=== PATIENT | female | born 1955 | race Caucasian/White ===

== ENCOUNTER 2017-02-24 13:17 | Inpatient (IN) | payer MEDICARE, MEDICAID ==
[~2017-02-24] VITALS: Ht 177.8 cm; Wt 66.5 kg
[~2017-02-24 13:17] MED LIST: ARIP2 PO; CA C1TAB73 PO; CITA20TA9 PO; DOCU250C91 PO; LUBI24CA2 PO
[2017-02-24] MEDS ORDERED: HALOPERIDOL 5 MG TABLET PO PRN (14:00)
[2017-02-24] MEDS ORDERED: ZOLPIDEM TARTRATE 10 MG TABLET PO PRN (14:00)
[2017-02-24] MEDS ORDERED: LORazepam 2 MG TABLET PO PRN (14:00)
[2017-02-24 14:13] VITALS: BP 124/63
[2017-02-24] MEDS ORDERED: PNEUMOCOCCAL VACCINE POLYVALENT 0.5 ML VIAL [PPSV23] IM ONE (14:45)
[2017-02-24 16:12] VITALS: BP 113/60
[2017-02-24] MEDS ORDERED: DOCUSATE SODIUM 250 MG CAPSULE PO PRN (16:45)
[2017-02-24 18:00] VITALS: BP 110/78
[2017-02-24 19:00] VITALS: BP 107/74
[2017-02-24 20:02] VITALS: BP 114/72
[2017-02-24 20:16] VITALS: BP 113/66
[2017-02-24] MEDS: LORazepam 2 MG TABLET PO SCH (21:15)
[2017-02-24] MEDS: MIRTAZAPINE 15 MG TABLET PO SCH (21:38)
[2017-02-24] MEDS: LUBIPROSTONE 24 MCG CAPSULE PO SCH (21:38)
[2017-02-25 02:05] VITALS: BP 105/64
[2017-02-25 06:01] VITALS: BP 111/67
[2017-02-25 07:54] LABS: BASOPHILS # (AUTO) 0.02 K/uL (0.00-0.20); BASOPHILS % (AUTO) 0.3 % (0.0-2.0); EOSINOPHILS # (AUTO) 0.22 K/uL (0.00-0.70); EOSINOPHILS % (AUTO) 3.21 % (1.0-6.0); HEMATOCRIT 39.6 % (36-46); HEMOGLOBIN 13.1 g/dL (12.0-16.0); LYMPHOCYTES % (AUTO) 28.4 % (22.0-44.0); MEAN CORPUSCULAR HEMOGLOBIN 31.2 pg (26.0-34.0); MEAN CORPUSCULAR HGB CONC 33.2 G/dL (31.0-37.0); MEAN CORPUSCULAR VOLUME 94 fL (80-100); MONOCYTES # (AUTO) 0.6 K/uL (0.1-1.0); MONOCYTES % (AUTO) 8.5 % (2.0-9.0); NEUTROPHILS # (AUTO) 4.2 K/uL (1.8-7.7); NEUTROPHILS % (AUTO) 59.6 % (40.0-70.0); PLATELET COUNT (AUTO) 244 K/uL (150-450); RED BLOOD CELL COUNT(AUTO) 4.21 MIL/uL (4.00-5.20); RED CELL DISTRIBUTION WIDTH 13.8 % (11.5-14.5)
[2017-02-25 08:07] LABS: ALANINE AMINOTRANSFERASE 17 U/L (12-78); ALBUMIN 3.2 g/dL (3.4-5.0); ANION GAP 8 mmol/L (8-16); ASPARTATE AMINOTRANSFERASE 12 U/L (15-37); BILIRUBIN,TOTAL 0.4 mg/dL (0.1-1.0); CALCIUM, TOTAL 8.4 mg/dL (8.8-10.5); CARBON DIOXIDE 27 mmol/L (22-29); CHLORIDE 108 mmol/L (98-107); CREATININE 0.84 mg/dL (0.60-1.30); GLOMERULAR FILTR. RATE CALC > 60 mL/min (>60); POTASSIUM 3.9 mmol/L (3.5-5.1); SODIUM SERUM 143 mmol/L (136-145); TOTAL PROTEIN, SERUM 5.9 g/dL (6.4-8.2); UREA NITROGEN, BLOOD 13 mg/dL (7-18)
[2017-02-25 08:09] VITALS: BP 122/56
[2017-02-25 08:28] LABS: APPEARANCE,URINE CLOUDY (CLEAR); GLUCOSE, URINE (UA) NEGATIVE (NEGATIVE); KETONES,URINE NEGATIVE (NEGATIVE); LEUKOCYTE ESTERASE ,URINE TRACE (NEGATIVE); OCCULT BLOOD,URINE NEGATIVE (NEGATIVE); PROTEIN,URINE NEGATIVE (NEGATIVE)
[2017-02-25 08:29] LABS: ADD UA MICROSCOPIC YES
[2017-02-25 08:33] LABS: AMORPHOUS SEDIMENT,UR Many /LPF (None Seen); CALCIUM OXALATE CRYSTALS,UR Moderate /LPF (None Seen); RBC,URINE 0-2 /HPF (0-2); SQUAMOUS EPITHELIAL CELL,UR Moderate /LPF (None Seen)
[2017-02-25] MEDS: CHOLECALCIFEROL (VIT D3) 1,000 UNITS TABLET PO SCH (08:35)
[2017-02-25] MEDS: LUBIPROSTONE 24 MCG CAPSULE PO SCH ×2 (08:35→16:57)
[2017-02-25] MEDS: LORazepam 2 MG TABLET PO SCH ×3 (08:35→16:57)
[2017-02-25] MEDS: NICOTINE 21 MG/24 HOUR PATCH TD SCH (08:36)
[2017-02-25 12:30] VITALS: BP 123/76
[2017-02-25 16:12] VITALS: BP 132/85
[2017-02-25 20:30] VITALS: BP 117/84
[2017-02-25] MEDS ORDERED: ACETAMINOPHEN 325 MG TABLET PO PRN (20:45)
[2017-02-25] MEDS ORDERED: IBUPROFEN 400 MG TABLET PO PRN (20:45)
[2017-02-25] MEDS: MIRTAZAPINE 15 MG TABLET PO SCH (20:46)
[2017-02-25] MEDS: MAGNESIUM HYDROXIDE SUSPENSION 30 ML UDCUP PO PRN (22:49)
[2017-02-26 05:37] VITALS: BP 125/82
[2017-02-26] MEDS: LUBIPROSTONE 24 MCG CAPSULE PO SCH ×2 (06:48→16:36)
[2017-02-26] MEDS: MAGNESIUM HYDROXIDE SUSPENSION 30 ML UDCUP PO PRN ×2 (06:57→20:53)
[2017-02-26 08:16] VITALS: BP 110/62
[2017-02-26] MEDS: CHOLECALCIFEROL (VIT D3) 1,000 UNITS TABLET PO SCH (08:36)
[2017-02-26] MEDS: LORazepam 2 MG TABLET PO SCH ×2 (08:36→16:36)
[2017-02-26] MEDS: NICOTINE 21 MG/24 HOUR PATCH TD SCH (08:37)
[2017-02-26] MEDS ORDERED: LORazepam 2 MG TABLET PO SCH (09:00)
[2017-02-26 09:08] LABS: HEMOGLOBIN A1C 5.7 % (4.5-6.2)
[2017-02-26 09:45] LABS: THYROID STIMULATING HORMONE 1.54 uIU/mL (0.36-3.74)
[2017-02-26 10:23] LABS: CHOL/HDL RATIO 2.8 (3.9-5.7)
[2017-02-26 16:09] VITALS: BP 128/71
[2017-02-26] MEDS: MIRTAZAPINE 15 MG TABLET PO SCH (20:36)
[2017-02-27 01:30] VITALS: BP 119/79
[2017-02-27] MEDS: LUBIPROSTONE 24 MCG CAPSULE PO SCH ×2 (07:16→16:40)
[2017-02-27 08:33] VITALS: BP 106/58
[2017-02-27] MEDS ORDERED: LORazepam 2 MG TABLET PO SCH ×2 (09:00)
[2017-02-27] MEDS: CHOLECALCIFEROL (VIT D3) 1,000 UNITS TABLET PO SCH (09:01)
[2017-02-27] MEDS: NICOTINE 21 MG/24 HOUR PATCH TD SCH (09:02)
[2017-02-27 16:37] VITALS: BP 104/63
[2017-02-27] MEDS: MIRTAZAPINE 15 MG TABLET PO SCH (20:35)
[2017-02-28 02:49] VITALS: BP 113/83
[2017-02-28] MEDS: LUBIPROSTONE 24 MCG CAPSULE PO SCH ×2 (07:20→16:34)
[2017-02-28 08:09] VITALS: BP 116/71
[2017-02-28] MEDS: NICOTINE 21 MG/24 HOUR PATCH TD SCH (09:56)
[2017-02-28] MEDS: CHOLECALCIFEROL (VIT D3) 1,000 UNITS TABLET PO SCH (09:56)
[2017-02-28] MEDS: MAGNESIUM HYDROXIDE SUSPENSION 30 ML UDCUP PO PRN (14:48)
[2017-02-28 16:09] VITALS: BP 118/73
[2017-02-28] MEDS: MIRTAZAPINE 15 MG TABLET PO SCH (20:33)
[2017-03-01 05:56] VITALS: BP 100/66
[2017-03-01] MEDS: LUBIPROSTONE 24 MCG CAPSULE PO SCH ×2 (06:32→16:33)
[2017-03-01 08:14] VITALS: BP 121/73
[2017-03-01] MEDS: NICOTINE 21 MG/24 HOUR PATCH TD SCH (08:46)
[2017-03-01] MEDS: CHOLECALCIFEROL (VIT D3) 1,000 UNITS TABLET PO SCH (08:46)
[2017-03-01 16:30] VITALS: BP 109/77
[2017-03-01] MEDS: MIRTAZAPINE 15 MG TABLET PO SCH (20:38)
[2017-03-02 04:55] VITALS: BP 117/71
[2017-03-02] MEDS: LUBIPROSTONE 24 MCG CAPSULE PO SCH ×2 (06:36→16:41)
[2017-03-02] MEDS: CHOLECALCIFEROL (VIT D3) 1,000 UNITS TABLET PO SCH (08:15)
[2017-03-02] MEDS: ARIPiprazole 5 MG TABLET PO SCH (08:15)
[2017-03-02] MEDS: NICOTINE 21 MG/24 HOUR PATCH TD SCH (08:15)
[2017-03-02 09:44] VITALS: BP 101/61
[2017-03-02] MEDS ORDERED: ARIP5TAB9 PO (14:51)
[2017-03-02] MEDS ORDERED: MIRT30 PO (14:51)
[2017-03-02 16:17] VITALS: BP 115/71
[2017-03-02] MEDS: MIRTAZAPINE 15 MG TABLET PO SCH (20:41)
[2017-03-02] MEDS: MAGNESIUM HYDROXIDE SUSPENSION 30 ML UDCUP PO PRN (20:52)
[2017-03-03 00:10] VITALS: BP 103/60
[2017-03-03] MEDS: LUBIPROSTONE 24 MCG CAPSULE PO SCH (06:40)
[2017-03-03] MEDS: CHOLECALCIFEROL (VIT D3) 1,000 UNITS TABLET PO SCH (08:03)
[2017-03-03] MEDS: ARIPiprazole 5 MG TABLET PO SCH (08:03)
[2017-03-03] MEDS: NICOTINE 21 MG/24 HOUR PATCH TD SCH (08:04)
[2017-03-03 08:31] VITALS: BP 109/70
[2017-03-03] MEDS ORDERED: MAGNESIUM CITRATE 300 ML ORAL SOLUTION PO PRN (10:00)
[2017-03-04 13:08] LABS: HEPATITIS Bs ANTIGEN SCREEN P Negative (Negative); HEPATITIS C AB SCREEN 0.2 s/co ratio (0.0-0.9)
[2017-03-21] MEDS ORDERED: ARIP10TA14 PO (09:52)
== END 2017-03-03 12:35 | disposition home or self-care (01) | DRG 885 ==
LOC: B2X 13:56 → EDSTATUS 14:13
PROVIDERS: ADMIT Psychiatry & Neurology Psychiatry; ATTEND Psychiatry & Neurology Psychiatry
PROC: HZ89ZZZ Medication Management for Substance Abuse Treatment, Other Replacement Medication (ICD-10-PCS; principal; 2017-02-24)
DX: F33.2 Major depressive disorder, recurrent severe without psychotic features (principal); R45.851 Suicidal ideations; F15.20 Other stimulant dependence, uncomplicated; F10.20 Alcohol dependence, uncomplicated; I10 Essential (primary) hypertension; D64.9 Anemia, unspecified; F17.200 Nicotine dependence, unspecified, uncomplicated; K59.00 Constipation, unspecified; F19.10 Other psychoactive substance abuse, uncomplicated; E88.09 Other disorders of plasma-protein metabolism, not elsewhere classified; Z53.29 Procedure and treatment not carried out because of patient's decision for other reasons; E55.9 Vitamin D deficiency, unspecified; F60.3 Borderline personality disorder; R45.87 Impulsiveness; F12.90 Cannabis use, unspecified, uncomplicated; Z28.21 Immunization not carried out because of patient refusal; Z59.0 Homelessness; Z79.899 Other long term (current) drug therapy; Z71.51 Drug abuse counseling and surveillance of drug abuser; Z91.5 Personal history of self-harm
CPT/HCPCS: 80074; 83036; 84443; 87086; 90471

== ENCOUNTER 2018-08-31 20:25 | Inpatient (IN) | payer MEDICARE, MEDICAID ==
[~2018-08-31] VITALS: Ht 177.8 cm; Wt 62.5 kg
[~2018-08-31 20:25] MED LIST changes: +ARIP10TA8 PO; -ARIP2 PO; -CA C1TAB73 PO; -CITA20TA9 PO; -LUBI24CA2 PO; +SERT50TA12 PO
[2018-08-31 20:43] VITALS: BP 113/72
[2018-08-31] MEDS ORDERED: HALOPERIDOL 5 MG TABLET PO PRN (20:45)
[2018-08-31] MEDS ORDERED: ZOLPIDEM TARTRATE 10 MG TABLET PO PRN (20:45)
[2018-08-31] MEDS ORDERED: PNEUMOCOCCAL VACCINE POLYVALENT 0.5 ML VIAL [PPSV23] IM ONE (21:30)
[2018-08-31] MEDS ORDERED: -PHARMACY VACCINE NOTE- MISC ONE (21:30)
[2018-08-31] MEDS ORDERED: DOCUSATE SODIUM 100 MG CAPSULE PO PRN (21:45)
[2018-08-31] MEDS ORDERED: MAG HYDROX/AL HYDROX/SIMETH ES 30 ML SUSPENSION UDCUP PO PRN (21:45)
[2018-08-31] MEDS ORDERED: PETROLATUM,WHITE 71 GM JELLY TP PRN (21:45)
[2018-08-31] MEDS ORDERED: IBUPROFEN 400 MG TABLET PO PRN (21:45)
[2018-08-31] MEDS ORDERED: LOPERAMIDE HCL 2 MG CAPSULE PO PRN (21:45)
[2018-08-31] MEDS ORDERED: ACETAMINOPHEN 325 MG TABLET PO PRN (21:45)
[2018-08-31] MEDS ORDERED: NICOTINE 14 MG/24 HOUR PATCH TD PRN (21:45)
[2018-08-31] MEDS ORDERED: CloNIDine HCL 0.1 MG TABLET PO PRN (21:45)
[2018-08-31] MEDS ORDERED: GuaiFENesin/D-METHORPHAN [SUGAR-FREE] 200-20MG/10 ML SYRUP UDCUP PO PRN (21:45)
[2018-08-31] MEDS ORDERED: ALBUTEROL SULFATE HFA 90 MCG/PUFF 8 GM INHALER IH PRN (21:45)
[2018-08-31] MEDS ORDERED: ONDANSETRON HCL 4 MG TABLET PO PRN (21:45)
[2018-09-01 06:22] VITALS: BP 118/78
[2018-09-01 08:33] VITALS: BP 100/66
[2018-09-01 08:49] LABS: BASOPHILS % (AUTO) 0.7 % (0.0-2.0); EOSINOPHILS % (AUTO) 4.6 % (1.0-6.0); HEMATOCRIT 37.9 % (36-46); HEMOGLOBIN 12.9 g/dL (12.0-16.0); LYMPHOCYTES # (AUTO) 1.2 K/uL (1.0-4.8); LYMPHOCYTES % (AUTO) 32.5 % (22.0-44.0); MEAN CORPUSCULAR HGB CONC 34.2 G/dL (31.0-37.0); MEAN CORPUSCULAR VOLUME 94 fL (80-100); MONOCYTES # (AUTO) 0.3 K/uL (0.1-1.0); MONOCYTES % (AUTO) 9.2 % (2.0-9.0); NEUTROPHILS # (AUTO) 1.9 K/uL (1.8-7.7); PLATELET COUNT (AUTO) 250 K/uL (150-450); RED BLOOD CELL COUNT(AUTO) 4.04 MIL/uL (4.00-5.20); RED CELL DISTRIBUTION WIDTH 13.9 % (11.5-14.5)
[2018-09-01 08:54] LABS: HEMOGLOBIN A1C 5.2 % (4.5-6.2)
[2018-09-01 09:14] LABS: ALANINE AMINOTRANSFERASE 20 U/L (12-78); ALBUMIN 3.2 g/dL (3.4-5.0); ALKALINE PHOSPHATASE 68 U/L (46-116); ANION GAP 5 mmol/L (8-16); ASPARTATE AMINOTRANSFERASE 18 U/L (15-37); BILIRUBIN,TOTAL 0.2 mg/dL (0.1-1.0); CALCIUM, TOTAL 8.5 mg/dL (8.8-10.5); CARBON DIOXIDE 29 mmol/L (22-29); CHLORIDE 108 mmol/L (98-107); CHOL/HDL RATIO 2.3 (3.9-5.7); CHOLESTEROL 130 mg/dL (131-200); CREATININE 0.94 mg/dL (0.60-1.30); FREE T4 (FREE THYROXINE) 0.87 ng/dL (0.76-1.46); GLOMERULAR FILTR. RATE CALC > 60 mL/min (>60); GLUCOSE,RANDOM 79 mg/dL (70-110); HDL CHOLESTEROL 56 mg/dL (40-60); LDL CHOL (CALC.) 65 mg/dL (0-130); POTASSIUM 4.7 mmol/L (3.5-5.1); SODIUM SERUM 142 mmol/L (136-145); THYROID STIMULATING HORMONE 0.78 uIU/mL (0.36-3.74); TOTAL PROTEIN, SERUM 6.2 g/dL (6.4-8.2); TRIGLYCERIDES 45 mg/dL (15-150); UREA NITROGEN, BLOOD 11 mg/dL (7-18)
[2018-09-01 09:15] VITALS: BP 114/69
[2018-09-01] MEDS: LORazepam 2 MG TABLET PO PRN (09:17)
[2018-09-01] MEDS: ARIPiprazole 10 MG TABLET PO SCH (12:00)
[2018-09-01] MEDS: SERTRALINE HCL 50 MG TABLET PO SCH (12:00)
[2018-09-01 16:50] VITALS: BP 129/79
[2018-09-02 03:18] VITALS: BP 124/82
[2018-09-02] MEDS: SERTRALINE HCL 50 MG TABLET PO SCH ×2 (08:57→10:46)
[2018-09-02] MEDS: ARIPiprazole 10 MG TABLET PO SCH ×2 (08:57→10:46)
[2018-09-02] MEDS: LORazepam 2 MG TABLET PO PRN ×2 (11:36→22:08)
[2018-09-02 22:12] VITALS: BP 111/87
[2018-09-03 00:47] VITALS: BP 110/68
[2018-09-03] MEDS: SERTRALINE HCL 50 MG TABLET PO SCH (08:35)
[2018-09-03] MEDS: ARIPiprazole 10 MG TABLET PO SCH (08:35)
[2018-09-03 09:25] VITALS: BP 117/77
[2018-09-03] MEDS: LORazepam 2 MG TABLET PO PRN ×2 (09:25→22:11)
[2018-09-03 16:06] VITALS: BP 108/63
[2018-09-04 00:54] VITALS: BP 110/72
[2018-09-04] MEDS: MAGNESIUM HYDROXIDE SUSPENSION 30 ML UDCUP PO PRN (05:48)
[2018-09-04 08:07] VITALS: BP 115/77
[2018-09-04] MEDS: SERTRALINE HCL 50 MG TABLET PO SCH (08:21)
[2018-09-04] MEDS: ARIPiprazole 10 MG TABLET PO SCH (08:21)
[2018-09-04] MEDS: LORazepam 2 MG TABLET PO PRN (08:27)
[2018-09-05] MEDS: LORazepam 2 MG TABLET PO PRN ×2 (00:43→08:29)
[2018-09-05 00:44] VITALS: BP 110/72
[2018-09-05 08:17] VITALS: BP 112/70
[2018-09-05] MEDS: SERTRALINE HCL 50 MG TABLET PO SCH (08:18)
[2018-09-05] MEDS: ARIPiprazole 10 MG TABLET PO SCH (08:18)
[2018-09-05 16:04] VITALS: BP 108/80
[2018-09-06] MEDS: MAGNESIUM HYDROXIDE SUSPENSION 30 ML UDCUP PO PRN (02:55)
[2018-09-06 08:10] VITALS: BP 122/77
[2018-09-06] MEDS: SERTRALINE HCL 100 MG TABLET PO SCH (08:30)
[2018-09-06] MEDS: ARIPiprazole 10 MG TABLET PO SCH (08:30)
[2018-09-07 02:46] VITALS: BP 113/74
[2018-09-07] MEDS: LORazepam 2 MG TABLET PO PRN ×2 (02:51→12:15)
[2018-09-07] MEDS: SERTRALINE HCL 100 MG TABLET PO SCH (08:27)
[2018-09-07] MEDS: ARIPiprazole 10 MG TABLET PO SCH (08:27)
[2018-09-07 08:30] VITALS: BP 115/71
[2018-09-07] MEDS: MAGNESIUM HYDROXIDE SUSPENSION 30 ML UDCUP PO PRN ×2 (09:15→23:53)
[2018-09-07 16:45] VITALS: BP 129/84
[2018-09-08 00:45] VITALS: BP 118/78
[2018-09-08] MEDS: LORazepam 2 MG TABLET PO PRN ×2 (04:11→15:41)
[2018-09-08 08:11] VITALS: BP 104/69
[2018-09-08] MEDS: ARIPiprazole 10 MG TABLET PO SCH (08:37)
[2018-09-08] MEDS: SERTRALINE HCL 100 MG TABLET PO SCH (08:37)
[2018-09-08 16:23] VITALS: BP 114/72
[2018-09-09 00:20] VITALS: BP 113/78
[2018-09-09] MEDS: MAGNESIUM HYDROXIDE SUSPENSION 30 ML UDCUP PO PRN (00:21)
[2018-09-09] MEDS: LORazepam 2 MG TABLET PO PRN ×2 (00:21→05:33)
[2018-09-09] MEDS: ARIPiprazole 10 MG TABLET PO SCH (08:03)
[2018-09-09] MEDS: SERTRALINE HCL 100 MG TABLET PO SCH (08:03)
[2018-09-09 08:17] VITALS: BP 121/75
[2018-09-09] MEDS ORDERED: SERT100T12 PO (11:55)
== END 2018-09-09 15:05 | disposition home or self-care (01) | DRG 885 ==
LOC: B2X 20:39
PROVIDERS: ADMIT Psychiatry & Neurology Psychiatry; ATTEND Psychiatry & Neurology Psychiatry
DX: F25.1 Schizoaffective disorder, depressive type (principal); R45.851 Suicidal ideations; I10 Essential (primary) hypertension; D64.9 Anemia, unspecified; F19.10 Other psychoactive substance abuse, uncomplicated; E55.9 Vitamin D deficiency, unspecified; K59.00 Constipation, unspecified; R45.87 Impulsiveness; K64.9 Unspecified hemorrhoids; D72.819 Decreased white blood cell count, unspecified; F41.9 Anxiety disorder, unspecified; Z79.82 Long term (current) use of aspirin; Z79.899 Other long term (current) drug therapy; Z91.5 Personal history of self-harm; Z71.51 Drug abuse counseling and surveillance of drug abuser; Z59.0 Homelessness
CPT/HCPCS: 83036; 84439; 84443; 86361

== ENCOUNTER 2018-10-19 11:02 | Inpatient (IN) | payer MEDICARE, MEDICAID ==
[~2018-10-19] VITALS: Ht 172.7 cm; Wt 62.1 kg
[~2018-10-19 11:02] MED LIST changes: -DOCU250C91 PO; +SERT100T12 PO; -SERT50TA12 PO
[2018-10-19] MEDS ORDERED: ZOLPIDEM TARTRATE 10 MG TABLET PO PRN (12:30)
[2018-10-19] MEDS ORDERED: HALOPERIDOL 5 MG TABLET PO PRN (12:30)
[2018-10-19] MEDS ORDERED: HALOPERIDOL LACTATE 5 MG/ML VIAL ONE (17:24)
[2018-10-19] MEDS ORDERED: DiphenhydrAMINE HCL 50 MG/ML VIAL ONE (17:24)
[2018-10-19] MEDS ORDERED: LORazepam 2 MG/ML VIAL ONE (17:24)
[2018-10-19] MEDS ORDERED: DiphenhydrAMINE HCL 50 MG/ML VIAL IM ONE (17:30)
[2018-10-19] MEDS ORDERED: HALOPERIDOL LACTATE 5 MG/ML VIAL IM ONE (17:30)
[2018-10-19] MEDS ORDERED: LORazepam 2 MG/ML VIAL IM ONE (17:30)
[2018-10-19] MEDS ORDERED: IBUPROFEN 400 MG TABLET PO PRN (20:15)
[2018-10-19] MEDS ORDERED: LOPERAMIDE HCL 2 MG CAPSULE PO PRN (20:15)
[2018-10-19] MEDS ORDERED: MAG HYDROX/AL HYDROX/SIMETH ES 30 ML SUSPENSION UDCUP PO PRN (20:15)
[2018-10-19] MEDS ORDERED: ONDANSETRON HCL 4 MG TABLET PO PRN (20:15)
[2018-10-19] MEDS ORDERED: CloNIDine HCL 0.1 MG TABLET PO PRN (20:15)
[2018-10-19] MEDS ORDERED: GuaiFENesin/D-METHORPHAN [SUGAR-FREE] 200-20MG/10 ML SYRUP UDCUP PO PRN (20:15)
[2018-10-19] MEDS ORDERED: PETROLATUM,WHITE 71 GM JELLY TP PRN (20:15)
[2018-10-19] MEDS ORDERED: NICOTINE 14 MG/24 HOUR PATCH TD PRN (20:15)
[2018-10-19] MEDS ORDERED: ALBUTEROL SULFATE HFA 90 MCG/PUFF 8 GM INHALER IH PRN (20:15)
[2018-10-19] MEDS ORDERED: ACETAMINOPHEN 325 MG TABLET PO PRN (20:15)
[2018-10-20 06:24] LABS: BASOPHILS % (AUTO) 0.8 % (0.0-2.0); EOSINOPHILS % (AUTO) 1.8 % (1.0-6.0); HEMATOCRIT 37.5 % (36-46); HEMOGLOBIN 12.5 g/dL (12.0-16.0); LYMPHOCYTES # (AUTO) 0.9 K/uL (1.0-4.8); LYMPHOCYTES % (AUTO) 28.8 % (22.0-44.0); MEAN CORPUSCULAR HGB CONC 33.2 G/dL (31.0-37.0); MEAN CORPUSCULAR VOLUME 90 fL (80-100); MONOCYTES # (AUTO) 0.4 K/uL (0.1-1.0); MONOCYTES % (AUTO) 11.9 % (2.0-9.0); NEUTROPHILS # (AUTO) 1.9 K/uL (1.8-7.7); NEUTROPHILS % (AUTO) 56.7 % (40.0-70.0); PLATELET COUNT (AUTO) 275 K/uL (150-450); RED BLOOD CELL COUNT(AUTO) 4.15 MIL/uL (4.00-5.20); RED CELL DISTRIBUTION WIDTH 13.4 % (11.5-14.5)
[2018-10-20 06:28] LABS: HEMOGLOBIN A1C 5.7 % (4.5-6.2)
[2018-10-20 06:49] LABS: ALANINE AMINOTRANSFERASE 16 U/L (12-78); ALBUMIN 2.7 g/dL (3.4-5.0); ALKALINE PHOSPHATASE 45 U/L (46-116); ANION GAP 6 mmol/L (8-16); ASPARTATE AMINOTRANSFERASE 33 U/L (15-37); BILIRUBIN,TOTAL 0.3 mg/dL (0.1-1.0); CALCIUM, TOTAL 8.2 mg/dL (8.8-10.5); CARBON DIOXIDE 27 mmol/L (22-29); CHLORIDE 111 mmol/L (98-107); CHOL/HDL RATIO 2.3 (3.9-5.7); CHOLESTEROL 115 mg/dL (131-200); CREATININE 0.64 mg/dL (0.60-1.30); FREE T4 (FREE THYROXINE) 0.89 ng/dL (0.76-1.46); GLOMERULAR FILTR. RATE CALC > 60 mL/min (>60); GLUCOSE,RANDOM 87 mg/dL (70-110); HCG,QUANTITATIVE 6 mIU/mL (0-6); HDL CHOLESTEROL 51 mg/dL (40-60); LDL CHOL (CALC.) 56 mg/dL (0-130); SODIUM SERUM 144 mmol/L (136-145); TOTAL PROTEIN, SERUM 5.9 g/dL (6.4-8.2); TRIGLYCERIDES 42 mg/dL (15-150); UREA NITROGEN, BLOOD 12 mg/dL (7-18)
[2018-10-20] MEDS: ARIPiprazole 10 MG TABLET PO SCH (09:00)
[2018-10-20] MEDS ORDERED: SERTRALINE HCL 100 MG TABLET PO SCH (21:00)
[2018-10-21] MEDS: ARIPiprazole 10 MG TABLET PO SCH ×2 (09:00→11:49)
[2018-10-21 10:26] VITALS: BP 108/68
[2018-10-21] MEDS: MAGNESIUM HYDROXIDE SUSPENSION 30 ML UDCUP PO PRN (14:20)
[2018-10-21] MEDS: DOCUSATE SODIUM 100 MG CAPSULE PO PRN (14:20)
[2018-10-21] MEDS: SERTRALINE HCL 50 MG TABLET PO SCH (20:42)
[2018-10-22] MEDS: LORazepam 2 MG TABLET PO PRN (06:53)
[2018-10-22] MEDS: ARIPiprazole 10 MG TABLET PO SCH (08:07)
[2018-10-22 10:01] VITALS: BP 126/76
[2018-10-22 17:00] VITALS: BP 102/71
[2018-10-22] MEDS: SERTRALINE HCL 50 MG TABLET PO SCH (20:24)
[2018-10-23] MEDS: LORazepam 2 MG TABLET PO PRN ×2 (06:07→11:44)
[2018-10-23 08:39] VITALS: BP 115/75
[2018-10-23] MEDS: DOCUSATE SODIUM 100 MG CAPSULE PO PRN (09:06)
[2018-10-23] MEDS: MAGNESIUM HYDROXIDE SUSPENSION 30 ML UDCUP PO PRN (09:06)
[2018-10-23] MEDS: ARIPiprazole 10 MG TABLET PO SCH (09:06)
[2018-10-23 17:17] VITALS: BP 120/76
[2018-10-23] MEDS: SERTRALINE HCL 50 MG TABLET PO SCH (21:00)
[2018-10-24] MEDS: LORazepam 2 MG TABLET PO PRN ×2 (06:15→11:23)
[2018-10-24] MEDS: MAGNESIUM HYDROXIDE SUSPENSION 30 ML UDCUP PO PRN (07:59)
[2018-10-24] MEDS: DOCUSATE SODIUM 100 MG CAPSULE PO PRN (07:59)
[2018-10-24] MEDS: ARIPiprazole 10 MG TABLET PO SCH (07:59)
[2018-10-24 09:00] VITALS: BP 100/57
[2018-10-24 17:49] VITALS: BP 129/78
[2018-10-24] MEDS: SERTRALINE HCL 50 MG TABLET PO SCH (21:00)
[2018-10-25 00:53] VITALS: BP 119/69
[2018-10-25 08:00] VITALS: BP 117/79
[2018-10-25] MEDS: ARIPiprazole 15 MG TABLET PO SCH (08:20)
[2018-10-25] MEDS: LORazepam 1 MG TABLET PO PRN ×2 (09:00→15:28)
[2018-10-25 19:33] VITALS: BP 120/65
[2018-10-25] MEDS: SERTRALINE HCL 50 MG TABLET PO SCH (20:15)
[2018-10-26] MEDS: LORazepam 1 MG TABLET PO PRN ×3 (03:09→15:33)
[2018-10-26 07:58] LABS: BASOPHILS % (AUTO) 0.8 % (0.0-2.0); EOSINOPHILS % (AUTO) 1.2 % (1.0-6.0); HEMOGLOBIN 13.9 g/dL (12.0-16.0); LYMPHOCYTES % (AUTO) 26.6 % (22.0-44.0); MEAN CORPUSCULAR HEMOGLOBIN 30.9 pg (26.0-34.0); MEAN CORPUSCULAR HGB CONC 33.8 G/dL (31.0-37.0); MEAN CORPUSCULAR VOLUME 91 fL (80-100); MONOCYTES # (AUTO) 0.4 K/uL (0.1-1.0); MONOCYTES % (AUTO) 11.1 % (2.0-9.0); NEUTROPHILS # (AUTO) 2.4 K/uL (1.8-7.7); NEUTROPHILS % (AUTO) 60.3 % (40.0-70.0); PLATELET COUNT (AUTO) 247 K/uL (150-450); RED BLOOD CELL COUNT(AUTO) 4.49 MIL/uL (4.00-5.20); RED CELL DISTRIBUTION WIDTH 13.3 % (11.5-14.5)
[2018-10-26 08:13] LABS: ALANINE AMINOTRANSFERASE 20 U/L (12-78); ALBUMIN 3.4 g/dL (3.4-5.0); ALKALINE PHOSPHATASE 65 U/L (46-116); ANION GAP 2 mmol/L (8-16); ASPARTATE AMINOTRANSFERASE 16 U/L (15-37); BILIRUBIN,TOTAL 0.5 mg/dL (0.1-1.0); CALCIUM, TOTAL 8.9 mg/dL (8.8-10.5); CARBON DIOXIDE 32 mmol/L (22-29); CHLORIDE 102 mmol/L (98-107); CREATININE 0.69 mg/dL (0.60-1.30); GLOMERULAR FILTR. RATE CALC > 60 mL/min (>60); GLUCOSE,RANDOM 94 mg/dL (70-110); POTASSIUM 4.1 mmol/L (3.5-5.1); SODIUM SERUM 136 mmol/L (136-145); TOTAL PROTEIN, SERUM 7.4 g/dL (6.4-8.2); UREA NITROGEN, BLOOD 12 mg/dL (7-18)
[2018-10-26] MEDS: ARIPiprazole 15 MG TABLET PO SCH (09:11)
[2018-10-26] MEDS: MAGNESIUM HYDROXIDE SUSPENSION 30 ML UDCUP PO PRN (09:12)
[2018-10-26 16:30] VITALS: BP 126/82
[2018-10-26] MEDS: SERTRALINE HCL 50 MG TABLET PO SCH (20:48)
[2018-10-27] MEDS: DOCUSATE SODIUM 100 MG CAPSULE PO PRN (01:11)
[2018-10-27 01:25] VITALS: BP 117/70
[2018-10-27] MEDS: LORazepam 1 MG TABLET PO PRN ×3 (01:27→20:30)
[2018-10-27] MEDS: ARIPiprazole 10 MG TABLET PO SCH (09:00)
[2018-10-27 14:04] VITALS: BP 109/66
[2018-10-27 20:28] VITALS: BP 129/70
[2018-10-27] MEDS: SERTRALINE HCL 50 MG TABLET PO SCH (20:31)
[2018-10-28 04:13] VITALS: BP 133/79
[2018-10-28] MEDS: LORazepam 1 MG TABLET PO PRN ×2 (04:13→11:15)
[2018-10-28] MEDS: ARIPiprazole 10 MG TABLET PO SCH (09:00)
[2018-10-28 16:11] LABS: HIV 1-2 SCREEN 4TH GEN W/RFLX Reactive (Non Reactive); HIV INTERPRETATION HIV-1 Positive; HIV-1 ANTIBODY(MULTISPOT) Positive (Negative); HIV-2 ANTIBODY(MULTISPOT) Negative (Negative)
[2018-10-28] MEDS: SERTRALINE HCL 50 MG TABLET PO SCH (21:03)
[2018-10-28 21:39] VITALS: BP 105/68
[2018-10-29 02:20] VITALS: BP 106/66
[2018-10-29] MEDS: LORazepam 1 MG TABLET PO PRN ×3 (02:23→16:57)
[2018-10-29] MEDS: MAGNESIUM HYDROXIDE SUSPENSION 30 ML UDCUP PO PRN (02:23)
[2018-10-29 09:14] VITALS: BP 104/66
[2018-10-29] MEDS: FOLIC ACID 1 MG TABLET PO SCH (09:27)
[2018-10-29] MEDS: ARIPiprazole 10 MG TABLET PO SCH (09:27)
[2018-10-29 18:06] VITALS: BP 101/76
[2018-10-29] MEDS: SERTRALINE HCL 50 MG TABLET PO SCH (20:27)
[2018-10-30 01:55] VITALS: BP 104/73
[2018-10-30] MEDS: LORazepam 1 MG TABLET PO PRN ×2 (02:00→12:56)
[2018-10-30] MEDS: MAGNESIUM HYDROXIDE SUSPENSION 30 ML UDCUP PO PRN (02:00)
[2018-10-30 08:05] VITALS: BP 115/76
[2018-10-30] MEDS: ARIPiprazole 10 MG TABLET PO SCH (09:05)
[2018-10-30] MEDS: FOLIC ACID 1 MG TABLET PO SCH (09:06)
[2018-10-30 17:00] VITALS: BP 95/48
[2018-10-30] MEDS: SERTRALINE HCL 50 MG TABLET PO SCH (21:01)
[2018-10-31] MEDS: LORazepam 1 MG TABLET PO PRN ×2 (03:15→09:30)
[2018-10-31 03:16] VITALS: BP 111/66
[2018-10-31] MEDS: ARIPiprazole 10 MG TABLET PO SCH (09:28)
[2018-10-31] MEDS: FOLIC ACID 1 MG TABLET PO SCH (09:29)
[2018-10-31 09:43] VITALS: BP 115/74
[2018-10-31] MEDS ORDERED: SERT100T12 PO (10:06)
[2018-10-31] MEDS ORDERED: ARIP10TA8 PO (10:06)
[2018-10-31] MEDS ORDERED: FOLI1 PO (10:07)
== END 2018-10-31 14:40 | disposition home or self-care (01) | DRG 885 ==
LOC: EMS 11:03 → 3EC 17:03 → 3EI 10-26 19:16
PROVIDERS: ADMIT Psychiatry & Neurology Psychiatry; ATTEND Psychiatry & Neurology Psychiatry
DX: F33.2 Major depressive disorder, recurrent severe without psychotic features (principal); F15.20 Other stimulant dependence, uncomplicated; R45.851 Suicidal ideations; F17.210 Nicotine dependence, cigarettes, uncomplicated; F41.9 Anxiety disorder, unspecified; G47.00 Insomnia, unspecified; D64.9 Anemia, unspecified; D72.819 Decreased white blood cell count, unspecified; E55.9 Vitamin D deficiency, unspecified; F10.20 Alcohol dependence, uncomplicated; I10 Essential (primary) hypertension; K59.00 Constipation, unspecified; K64.9 Unspecified hemorrhoids; Z59.0 Homelessness; Z78.1 Physical restraint status; Z79.899 Other long term (current) drug therapy; Z91.5 Personal history of self-harm
CPT/HCPCS: 83036; 84439; 86701; 86702; 87389; 96372; J1200; J1630; J2060

== ENCOUNTER 2019-05-03 13:24 | Emergency (ER) | payer MEDICARE, OTHER ==
[~2019-05-03] VITALS: Ht 177.8 cm; Wt 59.1 kg
[~2019-05-03 13:24] MED LIST changes: +FOLI1 PO
[2019-05-03 14:19] LABS: BASOPHILS % (AUTO) 1.1 % (0.0-2.0); EOSINOPHILS % (AUTO) 1.4 % (1.0-6.0); HEMATOCRIT 36.2 % (36-46); HEMOGLOBIN 11.8 g/dL (12.0-16.0); LYMPHOCYTES # (AUTO) 1.1 K/uL (1.0-4.8); LYMPHOCYTES % (AUTO) 22.8 % (22.0-44.0); MEAN CORPUSCULAR HEMOGLOBIN 29.9 pg (26.0-34.0); MEAN CORPUSCULAR HGB CONC 32.5 G/dL (31.0-37.0); MEAN CORPUSCULAR VOLUME 92 fL (80-100); MONOCYTES # (AUTO) 0.4 K/uL (0.1-1.0); MONOCYTES % (AUTO) 8.6 % (2.0-9.0); NEUTROPHILS # (AUTO) 3.1 K/uL (1.8-7.7); NEUTROPHILS % (AUTO) 66.1 % (40.0-70.0); PLATELET COUNT (AUTO) 303 K/uL (150-450); RED BLOOD CELL COUNT(AUTO) 3.94 MIL/uL (4.00-5.20); RED CELL DISTRIBUTION WIDTH 14.4 % (11.5-14.5)
[2019-05-03 14:35] LABS: ANION GAP 8 mmol/L (8-16); CALCIUM, TOTAL 8.8 mg/dL (8.8-10.5); CARBON DIOXIDE 28 mmol/L (22-29); CHLORIDE 104 mmol/L (98-107); GLOMERULAR FILTR. RATE CALC 56 mL/min (>60); GLUCOSE,RANDOM 153 mg/dL (70-110); POTASSIUM 3.9 mmol/L (3.5-5.1); SODIUM SERUM 140 mmol/L (136-145); UREA NITROGEN, BLOOD 21 mg/dL (7-18)
[2019-05-03 14:39] LABS: ALANINE AMINOTRANSFERASE 19 U/L (12-78); ALKALINE PHOSPHATASE 70 U/L (46-116); ASPARTATE AMINOTRANSFERASE 14 U/L (15-37); BILIRUBIN,TOTAL 0.3 mg/dL (0.1-1.0)
[2019-05-03 16:22] VITALS: BP 109/75
== END 2019-05-03 16:34 | disposition home or self-care (01) ==
LOC: EMS 13:25
DX: F25.9 Schizoaffective disorder, unspecified (principal); F32.9 Major depressive disorder, single episode, unspecified; F17.210 Nicotine dependence, cigarettes, uncomplicated; F31.9 Bipolar disorder, unspecified; Z59.0 Homelessness
CPT/HCPCS: 36415; 80053; 85025; 99284; 99406; G0480

== ENCOUNTER 2019-12-14 00:07 | Emergency (ER) | payer MEDICARE, OTHER ==
[~2019-12-14] VITALS: Ht 177.8 cm; Wt 50.0 kg
[2019-12-14 00:21] VITALS: BP 143/92
== END 2019-12-14 02:29 | disposition home or self-care (01) ==
LOC: EMS 00:07
DX: Z43.3 Encounter for attention to colostomy (principal); F31.9 Bipolar disorder, unspecified; F20.9 Schizophrenia, unspecified; Z79.899 Other long term (current) drug therapy; Z59.0 Homelessness

== ENCOUNTER 2020-01-08 12:03 | Emergency (ER) | payer MEDICARE, MEDICAID ==
[~2020-01-08] VITALS: Ht 170.2 cm; Wt 68.2 kg
[2020-01-08 12:07] VITALS: BP 156/82
== END 2020-01-08 13:15 | disposition home or self-care (01) ==
LOC: EMS 12:06
DX: Z43.3 Encounter for attention to colostomy (principal); F31.9 Bipolar disorder, unspecified; F20.9 Schizophrenia, unspecified; F17.210 Nicotine dependence, cigarettes, uncomplicated
CPT/HCPCS: 99406

== ENCOUNTER 2020-01-15 02:09 | Emergency (ER) | payer MEDICARE, MEDICAID ==
[~2020-01-15] VITALS: Ht 177.8 cm; Wt 63.6 kg
[2020-01-15 04:16] LABS: AMPHET/METH SCREEN,URINE POSITIVE (NEGATIVE); BARBITURATE SCREEN, URINE NEGATIVE (NEGATIVE); BENZODIAZEPINES SCREEN,URINE NEGATIVE (NEGATIVE); CANNABINOID SCREEN,URINE NEGATIVE (NEGATIVE); COCAINE SCREEN,URINE NEGATIVE (NEGATIVE); METHADONE SCREEN, URINE NEGATIVE (NEGATIVE); OPIATE SCREEN,URINE NEGATIVE (NEGATIVE); PHENCYCLIDINE SCREEN,URINE NEGATIVE (NEGATIVE)
[2020-01-15 05:20] VITALS: BP 135/90
== END 2020-01-15 05:42 | disposition home or self-care (01) ==
LOC: EMS 02:10
DX: F15.10 Other stimulant abuse, uncomplicated (principal); F17.210 Nicotine dependence, cigarettes, uncomplicated; F32.9 Major depressive disorder, single episode, unspecified; F20.9 Schizophrenia, unspecified; Z59.0 Homelessness; Z79.899 Other long term (current) drug therapy

== ENCOUNTER 2020-02-01 15:22 | Inpatient (IN) | payer MEDICARE, MEDICAID ==
[~2020-02-01] VITALS: Ht 175.3 cm; Wt 56.7 kg
[~2020-02-01 15:22] MED LIST changes: -ARIP10TA8 PO; +ARIP15TA2 PO; -FOLI1 PO; +MULT-1239 PO; -SERT100T12 PO; +SERT50TA12 PO
[2020-02-01] MEDS ORDERED: LORazepam 2 MG/ML VIAL ONE (15:31)
[2020-02-01] MEDS ORDERED: HALOPERIDOL LACTATE 5 MG/ML VIAL ONE (15:31)
[2020-02-01] MEDS ORDERED: DiphenhydrAMINE HCL 50 MG/ML VIAL ONE (15:31)
[2020-02-01] MEDS ORDERED: LORazepam 2 MG/ML VIAL IM ONE (15:45)
[2020-02-01] MEDS ORDERED: HALOPERIDOL LACTATE 5 MG/ML VIAL IM ONE (15:45)
[2020-02-01] MEDS ORDERED: DiphenhydrAMINE HCL 50 MG/ML VIAL IM ONE (15:45)
[2020-02-01 16:24] LABS: BASOPHILS % (AUTO) 1.1 % (0.0-2.0); EOSINOPHILS % (AUTO) 2.4 % (1.0-6.0); HEMATOCRIT 33.7 % (36-46); HEMOGLOBIN 11.1 g/dL (12.0-16.0); LYMPHOCYTES % (AUTO) 18.1 % (22.0-44.0); MEAN CORPUSCULAR HEMOGLOBIN 28.3 pg (26.0-34.0); MEAN CORPUSCULAR HGB CONC 32.8 G/dL (31.0-37.0); MEAN CORPUSCULAR VOLUME 86 fL (80-100); MONOCYTES # (AUTO) 0.5 K/uL (0.1-1.0); MONOCYTES % (AUTO) 9.8 % (2.0-9.0); NEUTROPHILS # (AUTO) 3.8 K/uL (1.8-7.7); NEUTROPHILS % (AUTO) 68.6 % (40.0-70.0); PLATELET COUNT (AUTO) 324 K/uL (150-450); RED CELL DISTRIBUTION WIDTH 15.7 % (11.5-14.5)
[2020-02-01 16:41] LABS: AMPHET/METH SCREEN,URINE POSITIVE (NEGATIVE); BARBITURATE SCREEN, URINE NEGATIVE (NEGATIVE); BENZODIAZEPINES SCREEN,URINE NEGATIVE (NEGATIVE); CANNABINOID SCREEN,URINE NEGATIVE (NEGATIVE); COCAINE SCREEN,URINE NEGATIVE (NEGATIVE); METHADONE SCREEN, URINE NEGATIVE (NEGATIVE); OPIATE SCREEN,URINE NEGATIVE (NEGATIVE)
[2020-02-01 16:45] LABS: ANION GAP 9 mmol/L (8-16); CARBON DIOXIDE 25 mmol/L (22-29); CHLORIDE 106 mmol/L (98-107); CREATININE 1.13 mg/dL (0.60-1.30); GLOMERULAR FILTR. RATE CALC 49 mL/min (>60); GLUCOSE,RANDOM 84 mg/dL (70-110); POTASSIUM 3.8 mmol/L (3.5-5.1); SODIUM SERUM 140 mmol/L (136-145); UREA NITROGEN, BLOOD 27 mg/dL (7-18)
[2020-02-01 16:45] LABS: APPEARANCE,URINE CLOUDY (CLEAR); GLUCOSE, URINE (UA) NEGATIVE (NEGATIVE); KETONES,URINE NEGATIVE (NEGATIVE); LEUKOCYTE ESTERASE ,URINE NEGATIVE (NEGATIVE); NITRATE,URINE NEGATIVE (NEGATIVE); OCCULT BLOOD,URINE NEGATIVE (NEGATIVE); PROTEIN,URINE POS 1+ (NEGATIVE); UROBILINOGEN,URINE 0.2 mg/dL (<=1.0)
[2020-02-01 16:47] LABS: PHENCYCLIDINE SCREEN,URINE NEGATIVE (NEGATIVE)
[2020-02-01 16:51] LABS: ALANINE AMINOTRANSFERASE 65 U/L (12-78); ALBUMIN 3.6 g/dL (3.4-5.0); ALKALINE PHOSPHATASE 71 U/L (46-116); ASPARTATE AMINOTRANSFERASE 60 U/L (15-37); BILIRUBIN,TOTAL 0.8 mg/dL (0.1-1.0)
[2020-02-01 17:14] LABS: BILIRUBIN,URINE PRELIM. POSITIVE (NEGATIVE)
[2020-02-01 17:19] LABS: RBC,URINE None Seen /HPF (0-2)
[2020-02-01 17:20] LABS: BACTERIA,URINE Few /HPF (None Seen); MUCUS,URINE Few LPF (None Seen); SQUAMOUS EPITHELIAL CELL,UR Moderate /LPF (None Seen)
[2020-02-01] MEDS ORDERED: LORazepam 2 MG TABLET PO PRN (18:30)
[2020-02-01] MEDS ORDERED: ACETAMINOPHEN 325 MG TABLET PO PRN (21:45)
[2020-02-01] MEDS ORDERED: 0.9% SODIUM CHLORIDE 10 ML SYRINGE IVP PRN (21:45)
[2020-02-02] VITALS: BP 128/76
[2020-02-02 04:17] VITALS: BP 105/69
[2020-02-02] MEDS ORDERED: MAGNESIUM HYDROXIDE SUSPENSION 30 ML UDCUP PO PRN (06:30)
[2020-02-02] MEDS ORDERED: ACETAMINOPHEN 325 MG TABLET PO PRN (06:30)
[2020-02-02] MEDS ORDERED: 0.9% SODIUM CHLORIDE 10 ML SYRINGE IVP PRN (06:30)
[2020-02-02] MEDS ORDERED: ONDANSETRON HCL 4 MG/2 ML VIAL IVP PRN (06:30)
[2020-02-02] MEDS ORDERED: OxyCODONE HCL/ACETAMINOPHEN 5-325 MG TABLET PO PRN ×2 (06:30)
[2020-02-02 07:53] VITALS: BP 107/71
[2020-02-02] MEDS: ARIPiprazole 15 MG TABLET PO SCH (08:01)
[2020-02-02] MEDS: DOCUSATE SODIUM 100 MG CAPSULE PO SCH ×2 (08:01→21:07)
[2020-02-02] MEDS: SERTRALINE HCL 50 MG TABLET PO SCH (08:01)
[2020-02-02 11:41] VITALS: BP 111/73
[2020-02-02 16:11] VITALS: BP 117/71
[2020-02-02 20:35] VITALS: BP 120/69
[2020-02-02] MEDS: ZOLPIDEM TARTRATE 10 MG TABLET PO PRN (21:07)
[2020-02-03] VITALS (7 sets, daily range): BP systolic 108–142; BP diastolic 60–102
[2020-02-03 06:40] LABS: BASOPHILS % (AUTO) 0.6 % (0.0-2.0); EOSINOPHILS % (AUTO) 8.6 % (1.0-6.0); HEMATOCRIT 34.3 % (36-46); HEMOGLOBIN 11.2 g/dL (12.0-16.0); LYMPHOCYTES # (AUTO) 1.1 K/uL (1.0-4.8); LYMPHOCYTES % (AUTO) 26.8 % (22.0-44.0); MEAN CORPUSCULAR HEMOGLOBIN 28.4 pg (26.0-34.0); MEAN CORPUSCULAR HGB CONC 32.5 G/dL (31.0-37.0); MEAN CORPUSCULAR VOLUME 87 fL (80-100); MONOCYTES # (AUTO) 0.5 K/uL (0.1-1.0); MONOCYTES % (AUTO) 12.8 % (2.0-9.0); NEUTROPHILS # (AUTO) 2.1 K/uL (1.8-7.7); NEUTROPHILS % (AUTO) 51.2 % (40.0-70.0); PLATELET COUNT (AUTO) 281 K/uL (150-450); RED BLOOD CELL COUNT(AUTO) 3.94 MIL/uL (4.00-5.20); RED CELL DISTRIBUTION WIDTH 16.3 % (11.5-14.5)
[2020-02-03 06:58] LABS: ANION GAP 7 mmol/L (8-16); CALCIUM, TOTAL 8.2 mg/dL (8.8-10.5); CARBON DIOXIDE 28 mmol/L (22-29); CHLORIDE 105 mmol/L (98-107); CREATININE 0.68 mg/dL (0.60-1.30); GLOMERULAR FILTR. RATE CALC > 60 mL/min (>60); GLUCOSE,RANDOM 89 mg/dL (70-110); POTASSIUM 4.1 mmol/L (3.5-5.1); SODIUM SERUM 140 mmol/L (136-145); UREA NITROGEN, BLOOD 16 mg/dL (7-18)
[2020-02-03] MEDS: DOCUSATE SODIUM 100 MG CAPSULE PO SCH ×2 (09:02→20:18)
[2020-02-03] MEDS: ARIPiprazole 15 MG TABLET PO SCH (09:02)
[2020-02-03] MEDS: SERTRALINE HCL 50 MG TABLET PO SCH (09:02)
[2020-02-03] MEDS ORDERED: DiphenhydrAMINE HCL 50 MG/ML VIAL IM ONE (10:45)
[2020-02-03] MEDS ORDERED: LORazepam 2 MG/ML VIAL IM ONE (10:45)
[2020-02-03] MEDS ORDERED: HALOPERIDOL LACTATE 5 MG/ML VIAL IM ONE (10:45)
[2020-02-03] MEDS: ZOLPIDEM TARTRATE 10 MG TABLET PO PRN (20:18)
[2020-02-03] MEDS: HALOPERIDOL 5 MG TABLET PO PRN (20:18)
[2020-02-04 04:59] VITALS: BP 118/77
[2020-02-04 07:14] VITALS: BP 122/66
[2020-02-04] MEDS: SERTRALINE HCL 50 MG TABLET PO SCH (08:14)
[2020-02-04] MEDS: HALOPERIDOL 5 MG TABLET PO PRN (08:14)
[2020-02-04] MEDS: ARIPiprazole 15 MG TABLET PO SCH (08:14)
[2020-02-04] MEDS: DOCUSATE SODIUM 100 MG CAPSULE PO SCH (08:14)
[2020-02-04 10:39] VITALS: BP 124/72
== END 2020-02-04 13:55 | DRG 885 ==
LOC: EMS 15:25 → 3EX 19:00 → 5N 19:01
PROVIDERS: ATTEND Internal Medicine
DX: F25.1 Schizoaffective disorder, depressive type (principal); E43 Unspecified severe protein-calorie malnutrition; R45.851 Suicidal ideations; Z68.1 Body mass index [BMI] 19.9 or less, adult; I10 Essential (primary) hypertension; Z59.0 Homelessness; Z93.3 Colostomy status; Z91.5 Personal history of self-harm; F15.10 Other stimulant abuse, uncomplicated; Z88.8 Allergy status to other drugs, medicaments and biological substances; Z03.818 Encounter for observation for suspected exposure to other biological agents ruled out
CPT/HCPCS: 87635; 99291; G0480; J1200; J1630; J2060; J2405

== ENCOUNTER 2020-02-04 14:00 | Inpatient (IN) | payer MEDICARE, MEDICAID ==
[~2020-02-04] VITALS: Ht 177.8 cm; Wt 61.4 kg
[2020-02-04 14:31] VITALS: BP 137/71
[2020-02-04] MEDS ORDERED: HALOPERIDOL 5 MG TABLET PO PRN (15:00)
[2020-02-04 16:40] VITALS: BP 122/66
[2020-02-04] MEDS: LORazepam 2 MG TABLET PO PRN (21:31)
[2020-02-05] MEDS: LORazepam 2 MG TABLET PO PRN ×2 (01:32→06:12)
[2020-02-05 05:02] VITALS: BP 116/71
[2020-02-05] MEDS: SERTRALINE HCL 50 MG TABLET PO SCH (08:41)
[2020-02-05] MEDS: ARIPiprazole 15 MG TABLET PO SCH (08:44)
[2020-02-05 09:38] VITALS: BP 137/84
[2020-02-05] MEDS ORDERED: HALOPERIDOL LACTATE 5 MG/ML VIAL ONE (13:53)
[2020-02-05] MEDS ORDERED: LORazepam 2 MG/ML VIAL ONE (13:53)
[2020-02-05] MEDS ORDERED: DiphenhydrAMINE HCL 50 MG/ML VIAL ONE (13:53)
[2020-02-05] MEDS ORDERED: DiphenhydrAMINE HCL 50 MG/ML VIAL IM ONE (14:00)
[2020-02-05] MEDS ORDERED: HALOPERIDOL LACTATE 5 MG/ML VIAL IM ONE (14:00)
[2020-02-05] MEDS ORDERED: LORazepam 2 MG/ML VIAL IM ONE (14:00)
[2020-02-05 16:49] VITALS: BP 108/69
[2020-02-05 17:30] VITALS: BP 117/73
[2020-02-05 21:51] VITALS: BP 117/73
[2020-02-06] MEDS: LORazepam 2 MG TABLET PO PRN ×4 (02:39→21:59)
[2020-02-06 07:16] LABS: MAGNESIUM 1.8 mg/dL (1.80-2.40); PHOSPHORUS 3.7 mg/dL (2.5-4.9); POTASSIUM 4.3 mmol/L (3.5-5.1)
[2020-02-06] MEDS: ARIPiprazole 15 MG TABLET PO SCH (08:36)
[2020-02-06] MEDS: SERTRALINE HCL 50 MG TABLET PO SCH (08:36)
[2020-02-06] MEDS: MULTIVITAMINS WITH MINERALS, THERAPEUTIC TABLET PO SCH (08:36)
[2020-02-06 09:05] VITALS: BP 123/75
[2020-02-06 14:18] VITALS: BP 141/85
[2020-02-06 16:33] VITALS: BP 148/90
[2020-02-07] MEDS: LORazepam 2 MG TABLET PO PRN ×3 (03:17→15:54)
[2020-02-07] MEDS: MULTIVITAMINS WITH MINERALS, THERAPEUTIC TABLET PO SCH (08:53)
[2020-02-07] MEDS: SERTRALINE HCL 50 MG TABLET PO SCH (08:53)
[2020-02-07] MEDS: ARIPiprazole 15 MG TABLET PO SCH (08:53)
[2020-02-07 09:24] VITALS: BP 131/82
[2020-02-07 16:17] VITALS: BP 126/80
[2020-02-08] MEDS: LORazepam 2 MG TABLET PO PRN ×3 (01:42→16:29)
[2020-02-08 01:54] VITALS: BP 120/71
[2020-02-08] MEDS: MAGNESIUM HYDROXIDE SUSPENSION 30 ML UDCUP PO PRN (06:37)
[2020-02-08] MEDS: MULTIVITAMINS WITH MINERALS, THERAPEUTIC TABLET PO SCH (09:17)
[2020-02-08] MEDS: ARIPiprazole 15 MG TABLET PO SCH (09:17)
[2020-02-08] MEDS: SERTRALINE HCL 50 MG TABLET PO SCH (09:17)
[2020-02-08 10:43] VITALS: BP 107/71
[2020-02-08 17:05] VITALS: BP 127/87
[2020-02-09 00:32] VITALS: BP 126/73
[2020-02-09] MEDS: LORazepam 2 MG TABLET PO PRN ×3 (00:32→19:25)
[2020-02-09] MEDS: ZOLPIDEM TARTRATE 10 MG TABLET PO PRN ×2 (00:32→22:48)
[2020-02-09 08:01] VITALS: BP 119/74
[2020-02-09] MEDS: SERTRALINE HCL 50 MG TABLET PO SCH (08:21)
[2020-02-09] MEDS: ARIPiprazole 15 MG TABLET PO SCH (08:21)
[2020-02-09] MEDS: MULTIVITAMINS WITH MINERALS, THERAPEUTIC TABLET PO SCH (08:21)
[2020-02-09 16:14] VITALS: BP 123/77
[2020-02-10] MEDS: LORazepam 2 MG TABLET PO PRN ×2 (00:50→11:51)
[2020-02-10 03:18] VITALS: BP 114/77
[2020-02-10 03:25] VITALS: BP 129/68
[2020-02-10] MEDS: MAGNESIUM HYDROXIDE SUSPENSION 30 ML UDCUP PO PRN ×2 (05:14→16:51)
[2020-02-10] MEDS: SERTRALINE HCL 50 MG TABLET PO SCH (08:26)
[2020-02-10] MEDS: ARIPiprazole 15 MG TABLET PO SCH (08:26)
[2020-02-10] MEDS: MULTIVITAMINS WITH MINERALS, THERAPEUTIC TABLET PO SCH (08:26)
[2020-02-10 09:40] VITALS: BP 121/75
[2020-02-10] MEDS ORDERED: PETROLATUM,WHITE 28 GM JELLY TP PRN (11:00)
[2020-02-10] MEDS ORDERED: DOCUSATE SODIUM 100 MG CAPSULE PO PRN (11:00)
[2020-02-10] MEDS ORDERED: CloNIDine HCL 0.1 MG TABLET PO PRN (11:00)
[2020-02-10] MEDS ORDERED: ACETAMINOPHEN 325 MG TABLET PO PRN (11:00)
[2020-02-10] MEDS ORDERED: LOPERAMIDE HCL 2 MG CAPSULE PO PRN (11:00)
[2020-02-10] MEDS ORDERED: ALBUTEROL SULFATE HFA 90 MCG/PUFF 8 GM INHALER IH PRN (11:00)
[2020-02-10] MEDS ORDERED: IBUPROFEN 400 MG TABLET PO PRN (11:00)
[2020-02-10] MEDS ORDERED: GuaiFENesin/D-METHORPHAN [SUGAR-FREE] 200-20MG/10 ML SYRUP UDCUP PO PRN (11:00)
[2020-02-10] MEDS ORDERED: ONDANSETRON HCL 4 MG TABLET PO PRN (11:00)
[2020-02-10] MEDS ORDERED: MAGNESIUM HYDROXIDE SUSPENSION 30 ML UDCUP PO PRN (11:00)
[2020-02-10] MEDS: NICOTINE 14 MG/24 HOUR PATCH TD PRN (11:51)
[2020-02-10 19:28] VITALS: BP 114/65
[2020-02-10] MEDS: ZOLPIDEM TARTRATE 10 MG TABLET PO PRN (21:53)
[2020-02-11 00:45] VITALS: BP 120/70
[2020-02-11] MEDS: LORazepam 2 MG TABLET PO PRN ×3 (01:49→20:33)
[2020-02-11 07:00] LABS: BASOPHILS % (AUTO) 0.8 % (0.0-2.0); EOSINOPHILS % (AUTO) 7.4 % (1.0-6.0); HEMATOCRIT 32.5 % (36-46); HEMOGLOBIN 10.8 g/dL (12.0-16.0); LYMPHOCYTES # (AUTO) 1.2 K/uL (1.0-4.8); LYMPHOCYTES % (AUTO) 31.2 % (22.0-44.0); MEAN CORPUSCULAR HEMOGLOBIN 28.4 pg (26.0-34.0); MEAN CORPUSCULAR HGB CONC 33.1 G/dL (31.0-37.0); MEAN CORPUSCULAR VOLUME 86 fL (80-100); MONOCYTES # (AUTO) 0.6 K/uL (0.1-1.0); MONOCYTES % (AUTO) 14.4 % (2.0-9.0); NEUTROPHILS # (AUTO) 1.8 K/uL (1.8-7.7); NEUTROPHILS % (AUTO) 46.2 % (40.0-70.0); PLATELET COUNT (AUTO) 258 K/uL (150-450); RED BLOOD CELL COUNT(AUTO) 3.78 MIL/uL (4.00-5.20); RED CELL DISTRIBUTION WIDTH 15.9 % (11.5-14.5)
[2020-02-11 07:26] LABS: ALANINE AMINOTRANSFERASE 32 U/L (12-78); ALBUMIN 3.2 g/dL (3.4-5.0); ALKALINE PHOSPHATASE 79 U/L (46-116); ANION GAP 5 mmol/L (8-16); ASPARTATE AMINOTRANSFERASE 20 U/L (15-37); BILIRUBIN,TOTAL 0.2 mg/dL (0.1-1.0); CALCIUM, TOTAL 8.6 mg/dL (8.8-10.5); CARBON DIOXIDE 30 mmol/L (22-29); CHLORIDE 103 mmol/L (98-107); CHOL/HDL RATIO 2.9 (3.9-5.7); CHOLESTEROL 171 mg/dL (131-200); CREATININE 0.74 mg/dL (0.60-1.30); GLOMERULAR FILTR. RATE CALC > 60 mL/min (>60); GLUCOSE,RANDOM 119 mg/dL (70-110); HDL CHOLESTEROL 59 mg/dL (40-60); LDL CHOL (CALC.) 96 mg/dL (0-130); POTASSIUM 5.1 mmol/L (3.5-5.1); SODIUM SERUM 138 mmol/L (136-145); THYROID STIMULATING HORMONE 2.33 uIU/mL (0.36-3.74); TOTAL PROTEIN, SERUM 7.1 g/dL (6.4-8.2); TRIGLYCERIDES 80 mg/dL (15-150); UREA NITROGEN, BLOOD 15 mg/dL (7-18)
[2020-02-11] MEDS: MULTIVITAMINS WITH MINERALS, THERAPEUTIC TABLET PO SCH (08:12)
[2020-02-11] MEDS: ARIPiprazole 15 MG TABLET PO SCH (08:13)
[2020-02-11] MEDS: SERTRALINE HCL 50 MG TABLET PO SCH (08:13)
[2020-02-11 12:44] VITALS: BP 117/76
[2020-02-11] MEDS: NICOTINE 14 MG/24 HOUR PATCH TD PRN (16:00)
[2020-02-11 16:59] VITALS: BP 122/71
[2020-02-11] MEDS: ZOLPIDEM TARTRATE 10 MG TABLET PO PRN (21:09)
[2020-02-11] MEDS: MAGNESIUM HYDROXIDE SUSPENSION 30 ML UDCUP PO PRN (21:23)
[2020-02-12 04:07] VITALS: BP 130/79
[2020-02-12] MEDS: LORazepam 2 MG TABLET PO PRN ×2 (05:02→16:20)
[2020-02-12] MEDS: NICOTINE 14 MG/24 HOUR PATCH TD PRN (08:12)
[2020-02-12] MEDS: ARIPiprazole 15 MG TABLET PO SCH (08:12)
[2020-02-12] MEDS: MULTIVITAMINS WITH MINERALS, THERAPEUTIC TABLET PO SCH (08:12)
[2020-02-12] MEDS: SERTRALINE HCL 50 MG TABLET PO SCH (08:12)
[2020-02-12 08:30] VITALS: BP 123/77
[2020-02-12] MEDS: MAGNESIUM HYDROXIDE SUSPENSION 30 ML UDCUP PO PRN (14:00)
[2020-02-12 16:00] VITALS: BP 129/82
[2020-02-12] MEDS: ZOLPIDEM TARTRATE 10 MG TABLET PO PRN (22:53)
[2020-02-13] MEDS: LORazepam 2 MG TABLET PO PRN ×2 (03:02→12:19)
[2020-02-13 03:19] VITALS: BP 105/83
[2020-02-13] MEDS: MAGNESIUM HYDROXIDE SUSPENSION 30 ML UDCUP PO PRN (06:34)
[2020-02-13] MEDS: ARIPiprazole 15 MG TABLET PO SCH (08:11)
[2020-02-13] MEDS: SERTRALINE HCL 50 MG TABLET PO SCH (08:11)
[2020-02-13] MEDS: MULTIVITAMINS WITH MINERALS, THERAPEUTIC TABLET PO SCH (08:11)
[2020-02-13 08:30] VITALS: BP 124/70
[2020-02-13 12:15] VITALS: BP 137/94
[2020-02-13 16:43] VITALS: BP 124/72
[2020-02-14 00:01] VITALS: BP 122/98
[2020-02-14] MEDS: ZOLPIDEM TARTRATE 10 MG TABLET PO PRN (00:03)
[2020-02-14] MEDS: LORazepam 2 MG TABLET PO PRN ×2 (00:03→09:50)
[2020-02-14 08:00] VITALS: BP 122/92
[2020-02-14] MEDS: SERTRALINE HCL 50 MG TABLET PO SCH (08:14)
[2020-02-14] MEDS: MAGNESIUM HYDROXIDE SUSPENSION 30 ML UDCUP PO PRN (08:14)
[2020-02-14] MEDS: ARIPiprazole 15 MG TABLET PO SCH (08:14)
[2020-02-14] MEDS: MULTIVITAMINS WITH MINERALS, THERAPEUTIC TABLET PO SCH (08:14)
[2020-02-14] MEDS ORDERED: ARIP15TA2 PO (11:14)
[2020-02-14] MEDS ORDERED: SERT50TA12 PO (11:14)
== END 2020-02-14 15:00 | disposition home or self-care (01) | DRG 885 ==
LOC: 3EX 14:00
DX: F25.1 Schizoaffective disorder, depressive type (principal); E43 Unspecified severe protein-calorie malnutrition; Z93.3 Colostomy status; Z68.1 Body mass index [BMI] 19.9 or less, adult; R45.851 Suicidal ideations; Z91.19 Patient's noncompliance with other medical treatment and regimen; F41.9 Anxiety disorder, unspecified; I10 Essential (primary) hypertension; E56.9 Vitamin deficiency, unspecified; D64.9 Anemia, unspecified; F10.10 Alcohol abuse, uncomplicated; Y90.9 Presence of alcohol in blood, level not specified; D72.819 Decreased white blood cell count, unspecified; F15.10 Other stimulant abuse, uncomplicated; F19.10 Other psychoactive substance abuse, uncomplicated; Z79.899 Other long term (current) drug therapy
CPT/HCPCS: 70450; 83036; 83735; 84100; 84132; 84443; G0378; J1200; J1630; J2060; Q0162

== ENCOUNTER 2020-02-23 16:02 | Emergency (ER) | payer MEDICARE, MEDICAID ==
[~2020-02-23 16:02] MED LIST changes: -MULT-1239 PO
== END 2020-02-23 16:10 | disposition left against medical advice (07) ==
LOC: EMS 16:05
DX: R46.89 Other symptoms and signs involving appearance and behavior (principal); Z59.0 Homelessness; Z88.1 Allergy status to other antibiotic agents

== ENCOUNTER 2020-02-24 11:28 | Emergency (ER) | payer MEDICAID, MEDICARE ==
[~2020-02-24] VITALS: Ht 170.2 cm; Wt 59.1 kg
[2020-02-24 13:43] VITALS: BP 134/74
== END 2020-02-24 13:45 | disposition home or self-care (01) ==
LOC: EMS 11:31
DX: R11.0 Nausea (principal); F31.9 Bipolar disorder, unspecified; F20.9 Schizophrenia, unspecified; F17.210 Nicotine dependence, cigarettes, uncomplicated; Z93.3 Colostomy status; Z59.0 Homelessness; Z88.1 Allergy status to other antibiotic agents

== ENCOUNTER 2020-11-13 08:28 | Emergency (ER) | payer MEDICARE, OTHER ==
[~2020-11-13] VITALS: Ht 177.8 cm; Wt 72.7 kg
[~2020-11-13 08:28] MED LIST changes: +SERT-439 PO; -SERT50TA12 PO
[2020-11-13 08:29] VITALS: BP 137/79
== END 2020-11-13 09:37 | disposition home or self-care (01) ==
LOC: EMS 08:46
DX: Z43.3 Encounter for attention to colostomy (principal); F25.1 Schizoaffective disorder, depressive type
CPT/HCPCS: 99281; Z7502

== ENCOUNTER 2020-11-17 16:07 | Emergency (ER) | payer MEDICARE, OTHER ==
[~2020-11-17] VITALS: Ht 177.8 cm; Wt 52.3 kg
[2020-11-17 19:00] VITALS: BP 128/80
== END 2020-11-17 19:06 | disposition home or self-care (01) ==
LOC: EMS 16:07
DX: Z43.3 Encounter for attention to colostomy (principal); F32.9 Major depressive disorder, single episode, unspecified
CPT/HCPCS: 99281; Z7502

== ENCOUNTER 2020-11-23 16:15 | Emergency (ER) | payer MEDICARE, OTHER ==
[~2020-11-23] VITALS: Ht 172.7 cm; Wt 65.9 kg
[~2020-11-23 16:15] MED LIST changes: +BICT1TAB PO; +DIVA-111 PO; +LURA40TA2 PO; +MUPI1OIN5 NASAL
[2020-11-23 16:20] VITALS: BP 145/88
== END 2020-11-23 17:37 | disposition home or self-care (01) ==
LOC: EMS 16:18
DX: Z43.3 Encounter for attention to colostomy (principal); F17.210 Nicotine dependence, cigarettes, uncomplicated; Z59.0 Homelessness
CPT/HCPCS: 99281; Z7502

== ENCOUNTER 2020-12-02 17:36 | Emergency (ER) | payer MEDICARE, OTHER ==
[~2020-12-02] VITALS: Ht 177.8 cm; Wt 55.9 kg
[2020-12-02 17:52] VITALS: BP 118/81
== END 2020-12-02 19:23 | disposition home or self-care (01) ==
LOC: EMS 17:38
DX: Z43.3 Encounter for attention to colostomy (principal); F31.9 Bipolar disorder, unspecified; F20.9 Schizophrenia, unspecified; F17.210 Nicotine dependence, cigarettes, uncomplicated; Z59.0 Homelessness; Z88.5 Allergy status to narcotic agent
CPT/HCPCS: 99281; Z7502

== ENCOUNTER 2020-12-08 15:27 | Emergency (ER) | payer MEDICARE, OTHER ==
[~2020-12-08] VITALS: Ht 167.6 cm; Wt 59.1 kg
[2020-12-08 15:33] VITALS: BP 128/74
== END 2020-12-08 18:19 | disposition home or self-care (01) ==
LOC: EMS 15:27
DX: F25.1 Schizoaffective disorder, depressive type (principal)
CPT/HCPCS: 99281; Z7502

== ENCOUNTER 2021-01-27 11:18 | Inpatient (IN) | payer MEDICARE, MEDICAID ==
[~2021-01-27] VITALS: Ht 198.1 cm; Wt 55.8 kg
[~2021-01-27 11:18] MED LIST changes: -ARIP15TA2 PO; +ARIP15TA27 PO
[2021-01-27 12:54] LABS: BASOPHILS % (AUTO) 0.5 % (0.0-2.0); EOSINOPHILS % (AUTO) 2.1 % (1.0-6.0); HEMATOCRIT 34.3 % (36-46); HEMOGLOBIN 11.4 g/dL (12.0-16.0); LYMPHOCYTES # (AUTO) 0.9 K/uL (1.0-4.8); MEAN CORPUSCULAR HEMOGLOBIN 29.7 pg (26.0-34.0); MEAN CORPUSCULAR HGB CONC 33.2 G/dL (31.0-37.0); MEAN CORPUSCULAR VOLUME 89 fL (80-100); MONOCYTES # (AUTO) 0.5 K/uL (0.1-1.0); MONOCYTES % (AUTO) 15.8 % (2.0-9.0); NEUTROPHILS # (AUTO) 1.7 K/uL (1.8-7.7); NEUTROPHILS % (AUTO) 52.6 % (40.0-70.0); PLATELET COUNT (AUTO) 234 K/uL (150-450); RED BLOOD CELL COUNT(AUTO) 3.84 MIL/uL (4.00-5.20)
[2021-01-27 13:02] LABS: ANION GAP 7 mmol/L (8-16); CALCIUM, TOTAL 8.5 mg/dL (8.8-10.5); CARBON DIOXIDE 26 mmol/L (22-29); CHLORIDE 102 mmol/L (98-107); CREATININE 0.76 mg/dL (0.60-1.30); GLOMERULAR FILTR. RATE CALC > 60 mL/min (>60); GLUCOSE,RANDOM 77 mg/dL (70-110); POTASSIUM 3.7 mmol/L (3.5-5.1); SODIUM SERUM 135 mmol/L (136-145); UREA NITROGEN, BLOOD 18 mg/dL (7-18)
[2021-01-27 13:08] LABS: ALANINE AMINOTRANSFERASE 27 U/L (12-78); ALBUMIN 3.3 g/dL (3.4-5.0); ALKALINE PHOSPHATASE 65 U/L (46-116); ASPARTATE AMINOTRANSFERASE 28 U/L (15-37); BILIRUBIN,TOTAL 0.8 mg/dL (0.1-1.0); TOTAL PROTEIN, SERUM 6.8 g/dL (6.4-8.2)
[2021-01-27 13:58] LABS: COVID AG,FIA SOURCE NASOPHARYNGEAL
[2021-01-27] MEDS ORDERED: LORazepam 2 MG/ML VIAL IM ONE (14:45)
[2021-01-27] MEDS ORDERED: HALOPERIDOL LACTATE 5 MG/ML VIAL IM ONE (14:45)
[2021-01-27] MEDS ORDERED: ZOLPIDEM TARTRATE 10 MG TABLET PO PRN (23:45)
[2021-01-28 02:15] VITALS: BP 148/90
[2021-01-28 02:29] LABS: APPEARANCE,URINE CLEAR (CLEAR); BILIRUBIN,URINE NEGATIVE (NEGATIVE); GLUCOSE, URINE (UA) NEGATIVE (NEGATIVE); KETONES,URINE TRACE mg/dL (NEGATIVE); LEUKOCYTE ESTERASE ,URINE NEGATIVE (NEGATIVE); NITRATE,URINE NEGATIVE (NEGATIVE); OCCULT BLOOD,URINE NEGATIVE (NEGATIVE); PH,URINE 6.5 (5.0-8.0); PROTEIN,URINE NEGATIVE (NEGATIVE); UROBILINOGEN,URINE 0.2 mg/dL (<=1.0)
[2021-01-28 02:31] LABS: AMPHET/METH SCREEN,URINE POSITIVE (NEGATIVE); BARBITURATE SCREEN, URINE NEGATIVE (NEGATIVE); BENZODIAZEPINES SCREEN,URINE POSITIVE (NEGATIVE); CANNABINOID SCREEN,URINE NEGATIVE (NEGATIVE); COCAINE SCREEN,URINE NEGATIVE (NEGATIVE); METHADONE SCREEN, URINE NEGATIVE (NEGATIVE); OPIATE SCREEN,URINE NEGATIVE (NEGATIVE); PHENCYCLIDINE SCREEN,URINE NEGATIVE (NEGATIVE)
[2021-01-28 08:00] VITALS: BP 119/64
[2021-01-28] MEDS ORDERED: CloNIDine HCL 0.1 MG TABLET PO PRN (08:00)
[2021-01-28] MEDS ORDERED: MAGNESIUM HYDROXIDE SUSPENSION 30 ML UDCUP PO PRN (08:00)
[2021-01-28] MEDS ORDERED: DOCUSATE SODIUM 100 MG CAPSULE PO PRN (08:00)
[2021-01-28] MEDS ORDERED: PETROLATUM,WHITE 28 GM JELLY TP PRN (08:00)
[2021-01-28] MEDS ORDERED: IBUPROFEN 400 MG TABLET PO PRN (08:00)
[2021-01-28] MEDS ORDERED: GuaiFENesin/D-METHORPHAN [SUGAR-FREE] 200-20MG/10 ML SYRUP UDCUP PO PRN (08:00)
[2021-01-28] MEDS ORDERED: LOPERAMIDE HCL 2 MG CAPSULE PO PRN (08:00)
[2021-01-28] MEDS ORDERED: ACETAMINOPHEN 325 MG TABLET PO PRN (08:00)
[2021-01-28] MEDS ORDERED: ONDANSETRON HCL 4 MG TABLET PO PRN (08:00)
[2021-01-28] MEDS ORDERED: MAG HYDROX/AL HYDROX/SIMETH ES 30 ML SUSPENSION UDCUP PO PRN (08:00)
[2021-01-28] MEDS ORDERED: ALBUTEROL SULFATE HFA 90 MCG/PUFF 8 GM INHALER IH PRN (08:00)
[2021-01-28] MEDS ORDERED: NICOTINE 14 MG/24 HOUR PATCH TD PRN (08:00)
[2021-01-28] MEDS: BICTEGRAV/EMTRICIT/TENOFOV ALA 50-200-25 MG TABLET PO SCH (11:08)
[2021-01-28] MEDS: SERTRALINE HCL 50 MG TABLET PO SCH (14:43)
[2021-01-28] MEDS: LORazepam 2 MG TABLET PO PRN (15:51)
[2021-01-28] MEDS: DIVALPROEX SODIUM 500 MG DR TABLET PO SCH (16:15)
[2021-01-28 16:56] VITALS: BP 105/61
[2021-01-29] MEDS: LORazepam 2 MG TABLET PO PRN (05:25)
[2021-01-29 05:27] VITALS: BP 126/77
[2021-01-29 08:00] VITALS: BP 111/69
[2021-01-29] MEDS: ARIPiprazole 15 MG TABLET PO SCH (08:02)
[2021-01-29] MEDS: DIVALPROEX SODIUM 500 MG DR TABLET PO SCH ×2 (08:02→16:22)
[2021-01-29] MEDS: SERTRALINE HCL 50 MG TABLET PO SCH (08:02)
[2021-01-29] MEDS: BICTEGRAV/EMTRICIT/TENOFOV ALA 50-200-25 MG TABLET PO SCH (08:02)
[2021-01-29] MEDS: HALOPERIDOL 5 MG TABLET PO PRN (08:05)
[2021-01-29 16:19] VITALS: BP 124/84
[2021-01-30 06:30] LABS: PHOSPHORUS 3.6 mg/dL (2.5-4.9)
[2021-01-30 08:18] VITALS: BP 122/80
[2021-01-30] MEDS: MULTIVITAMINS WITH MINERALS, THERAPEUTIC TABLET PO SCH (09:17)
[2021-01-30] MEDS: THIAMINE 100 MG TABLET PO SCH (09:17)
[2021-01-30] MEDS: ARIPiprazole 15 MG TABLET PO SCH (09:17)
[2021-01-30] MEDS: BICTEGRAV/EMTRICIT/TENOFOV ALA 50-200-25 MG TABLET PO SCH (09:17)
[2021-01-30] MEDS: DIVALPROEX SODIUM 500 MG DR TABLET PO SCH ×2 (09:18→16:54)
[2021-01-30] MEDS: SERTRALINE HCL 50 MG TABLET PO SCH (09:18)
[2021-01-30 16:49] VITALS: BP 132/76
[2021-01-31 08:50] VITALS: BP 112/64
[2021-01-31] MEDS: BICTEGRAV/EMTRICIT/TENOFOV ALA 50-200-25 MG TABLET PO SCH (09:37)
[2021-01-31] MEDS: SERTRALINE HCL 50 MG TABLET PO SCH (09:40)
[2021-01-31] MEDS: HALOPERIDOL 5 MG TABLET PO PRN (09:40)
[2021-01-31] MEDS: LORazepam 2 MG TABLET PO PRN ×2 (09:40→22:04)
[2021-01-31] MEDS: MULTIVITAMINS WITH MINERALS, THERAPEUTIC TABLET PO SCH (09:40)
[2021-01-31] MEDS: ARIPiprazole 15 MG TABLET PO SCH (09:40)
[2021-01-31] MEDS: DIVALPROEX SODIUM 500 MG DR TABLET PO SCH ×2 (09:40→16:40)
[2021-01-31] MEDS: THIAMINE 100 MG TABLET PO SCH (09:40)
[2021-01-31 16:16] VITALS: BP 118/78
[2021-02-01 04:11] VITALS: BP 124/73
[2021-02-01] MEDS: THIAMINE 100 MG TABLET PO SCH (08:16)
[2021-02-01] MEDS: ARIPiprazole 15 MG TABLET PO SCH (08:16)
[2021-02-01] MEDS: MULTIVITAMINS WITH MINERALS, THERAPEUTIC TABLET PO SCH (08:16)
[2021-02-01] MEDS: SERTRALINE HCL 50 MG TABLET PO SCH (08:16)
[2021-02-01] MEDS: BICTEGRAV/EMTRICIT/TENOFOV ALA 50-200-25 MG TABLET PO SCH (08:16)
[2021-02-01] MEDS: DIVALPROEX SODIUM 500 MG DR TABLET PO SCH ×2 (08:16→16:25)
[2021-02-01 08:54] VITALS: BP 112/73
[2021-02-01 14:45] LABS: COVID AG,FIA SOURCE NASOPHARYNGEAL
[2021-02-01 16:05] VITALS: BP 100/56
[2021-02-01] MEDS: LORazepam 2 MG TABLET PO PRN (21:23)
[2021-02-02 00:29] VITALS: BP 118/65
[2021-02-02] MEDS: THIAMINE 100 MG TABLET PO SCH (07:55)
[2021-02-02] MEDS: ARIPiprazole 15 MG TABLET PO SCH (07:55)
[2021-02-02] MEDS: MULTIVITAMINS WITH MINERALS, THERAPEUTIC TABLET PO SCH (07:55)
[2021-02-02] MEDS: SERTRALINE HCL 50 MG TABLET PO SCH (07:55)
[2021-02-02] MEDS: BICTEGRAV/EMTRICIT/TENOFOV ALA 50-200-25 MG TABLET PO SCH (07:56)
[2021-02-02] MEDS: LORazepam 2 MG TABLET PO PRN (07:56)
[2021-02-02] MEDS: DIVALPROEX SODIUM 500 MG DR TABLET PO SCH ×2 (07:56→17:27)
[2021-02-02 08:00] VITALS: BP 113/81
[2021-02-02 17:55] VITALS: BP 123/73
[2021-02-03] MEDS: LORazepam 2 MG TABLET PO PRN (03:40)
[2021-02-03 03:44] VITALS: BP 111/62
[2021-02-03 08:00] VITALS: BP 98/58
[2021-02-03] MEDS: THIAMINE 100 MG TABLET PO SCH (10:34)
[2021-02-03] MEDS: SERTRALINE HCL 50 MG TABLET PO SCH (10:34)
[2021-02-03] MEDS: DIVALPROEX SODIUM 500 MG DR TABLET PO SCH ×2 (10:34→16:17)
[2021-02-03] MEDS: BICTEGRAV/EMTRICIT/TENOFOV ALA 50-200-25 MG TABLET PO SCH (10:34)
[2021-02-03] MEDS: ARIPiprazole 15 MG TABLET PO SCH (10:34)
[2021-02-03] MEDS: MULTIVITAMINS WITH MINERALS, THERAPEUTIC TABLET PO SCH (10:35)
[2021-02-03 16:00] VITALS: BP 119/75
[2021-02-04] MEDS: ARIPiprazole 15 MG TABLET PO SCH (07:39)
[2021-02-04] MEDS: MULTIVITAMINS WITH MINERALS, THERAPEUTIC TABLET PO SCH (07:39)
[2021-02-04] MEDS: DIVALPROEX SODIUM 500 MG DR TABLET PO SCH ×2 (07:39→16:11)
[2021-02-04] MEDS: THIAMINE 100 MG TABLET PO SCH (07:39)
[2021-02-04] MEDS: HALOPERIDOL 5 MG TABLET PO PRN ×2 (07:39→11:53)
[2021-02-04] MEDS: SERTRALINE HCL 50 MG TABLET PO SCH (07:39)
[2021-02-04] MEDS: LORazepam 2 MG TABLET PO PRN ×2 (07:39→11:53)
[2021-02-04] MEDS: BICTEGRAV/EMTRICIT/TENOFOV ALA 50-200-25 MG TABLET PO SCH (07:40)
[2021-02-04 08:00] VITALS: BP 122/74
[2021-02-04 16:00] VITALS: BP 98/62
[2021-02-05 00:08] VITALS: BP 110/64
[2021-02-05] MEDS: LORazepam 2 MG TABLET PO PRN ×2 (00:08→07:52)
[2021-02-05] MEDS: THIAMINE 100 MG TABLET PO SCH (07:52)
[2021-02-05] MEDS: BICTEGRAV/EMTRICIT/TENOFOV ALA 50-200-25 MG TABLET PO SCH (07:52)
[2021-02-05] MEDS: DIVALPROEX SODIUM 500 MG DR TABLET PO SCH ×2 (07:52→16:12)
[2021-02-05] MEDS: SERTRALINE HCL 50 MG TABLET PO SCH (07:52)
[2021-02-05] MEDS: MULTIVITAMINS WITH MINERALS, THERAPEUTIC TABLET PO SCH (07:52)
[2021-02-05] MEDS: ARIPiprazole 15 MG TABLET PO SCH (07:52)
[2021-02-05 08:57] VITALS: BP 114/79
[2021-02-05] MEDS ORDERED: DIVA-112 PO (15:09)
[2021-02-05] MEDS ORDERED: MULT-1239 PO (15:10)
[2021-02-05] MEDS ORDERED: THIA100T80 PO (15:11)
== END 2021-02-05 16:15 | disposition home or self-care (01) | DRG 885 ==
LOC: EMS 11:21 → 3EC 23:30
PROVIDERS: ADMIT Psychiatry & Neurology Psychiatry; ATTEND Psychiatry & Neurology Psychiatry
DX: F20.0 Paranoid schizophrenia (principal); E43 Unspecified severe protein-calorie malnutrition; Z93.3 Colostomy status; E87.1 Hypo-osmolality and hyponatremia; Z68.1 Body mass index [BMI] 19.9 or less, adult; D64.9 Anemia, unspecified; D72.819 Decreased white blood cell count, unspecified; E55.9 Vitamin D deficiency, unspecified; R45.87 Impulsiveness; Z20.822 Contact with and (suspected) exposure to COVID-19; F10.10 Alcohol abuse, uncomplicated; I10 Essential (primary) hypertension; J44.9 Chronic obstructive pulmonary disease, unspecified; Z59.0 Homelessness; Z87.891 Personal history of nicotine dependence; Z91.14 Patient's other noncompliance with medication regimen
CPT/HCPCS: 80053; 81003; 83735; 84100; 85025; 87426; 99291; A9575; G0480; J1630; J2060

== ENCOUNTER 2021-02-13 12:15 | Emergency (ER) | payer MEDICARE, OTHER ==
[~2021-02-13] VITALS: Ht 167.6 cm; Wt 55.8 kg
[~2021-02-13 12:15] MED LIST changes: -DIVA-111 PO; +DIVA-112 PO; -LURA40TA2 PO; +MULT-1239 PO; -MUPI1OIN5 NASAL; +THIA100T80 PO
[2021-02-13] MEDS ORDERED: LORazepam 2 MG/ML VIAL ONE (12:37)
[2021-02-13] MEDS ORDERED: DiphenhydrAMINE HCL 50 MG/ML VIAL ONE (12:37)
[2021-02-13] MEDS ORDERED: HALOPERIDOL LACTATE 5 MG/ML VIAL ONE (12:38)
[2021-02-13] MEDS ORDERED: LORazepam 2 MG/ML VIAL IM ONE (12:45)
[2021-02-13] MEDS ORDERED: HALOPERIDOL LACTATE 5 MG/ML VIAL IM ONE (12:45)
[2021-02-13] MEDS ORDERED: DiphenhydrAMINE HCL 50 MG/ML VIAL IM ONE (12:45)
[2021-02-13 13:37] LABS: BASOPHILS % (AUTO) 0.6 % (0.0-2.0); EOSINOPHILS % (AUTO) 1.2 % (1.0-6.0); HEMATOCRIT 33.3 % (36-46); LYMPHOCYTES % (AUTO) 28.5 % (22.0-44.0); MEAN CORPUSCULAR HEMOGLOBIN 29.8 pg (26.0-34.0); MEAN CORPUSCULAR VOLUME 90 fL (80-100); MONOCYTES # (AUTO) 0.5 K/uL (0.1-1.0); MONOCYTES % (AUTO) 12.7 % (2.0-9.0); PLATELET COUNT (AUTO) 263 K/uL (150-450); RED BLOOD CELL COUNT(AUTO) 3.69 MIL/uL (4.00-5.20); RED CELL DISTRIBUTION WIDTH 14.8 % (11.5-14.5)
[2021-02-13 14:04] LABS: ALANINE AMINOTRANSFERASE 50 U/L (12-78); ALBUMIN 3.1 g/dL (3.4-5.0); ALKALINE PHOSPHATASE 58 U/L (46-116); ANION GAP 11 mmol/L (8-16); ASPARTATE AMINOTRANSFERASE 50 U/L (15-37); BILIRUBIN,TOTAL 0.6 mg/dL (0.1-1.0); CALCIUM, TOTAL 7.9 mg/dL (8.8-10.5); CARBON DIOXIDE 23 mmol/L (22-29); CHLORIDE 105 mmol/L (98-107); CREATININE 0.78 mg/dL (0.60-1.30); GLOMERULAR FILTR. RATE CALC > 60 mL/min (>60); GLUCOSE,RANDOM 69 mg/dL (70-110); SODIUM SERUM 139 mmol/L (136-145); TOTAL PROTEIN, SERUM 6.4 g/dL (6.4-8.2); UREA NITROGEN, BLOOD 17 mg/dL (7-18)
[2021-02-13 14:06] LABS: POTASSIUM 2.8 mmol/L (3.5-5.1)
[2021-02-13] MEDS: POTASSIUM CHLORIDE 20 MEQ ER TABLET PO ONE ×2 (14:15→18:40)
[2021-02-13] MEDS ORDERED: LORazepam 1 MG TABLET PO ONE (15:00)
[2021-02-13] MEDS ORDERED: MIDAZOLAM HCL 2 MG/2 ML VIAL IM ONE (15:15)
[2021-02-13 19:52] LABS: COVID AG,FIA SOURCE NASOPHARYNGEAL
[2021-02-13 23:19] VITALS: BP 142/93
[2021-02-16 12:07] LABS: GLUCOSE,POINT OF CARE 60 MG/DL (70-110)
[2021-02-16 12:07] LABS: GLUCOSE,POINT OF CARE 68 MG/DL (70-110)
[2021-02-16 12:07] LABS: GLUCOSE,POINT OF CARE 144 MG/DL (70-110)
[2021-02-16 12:07] LABS: GLUCOSE,POINT OF CARE 74 MG/DL (70-110)
== END 2021-02-13 23:35 | disposition home or self-care (01) ==
LOC: EDUNIT# 12:15 → EMS 12:26
DX: F20.9 Schizophrenia, unspecified (principal); Z20.822 Contact with and (suspected) exposure to COVID-19; F22 Delusional disorders; F15.10 Other stimulant abuse, uncomplicated; F17.210 Nicotine dependence, cigarettes, uncomplicated; Z59.0 Homelessness
CPT/HCPCS: 36415; 80053; 82962; 85025; 87426; 96372; 99291; G0480; J1200; J1630; J2060; J2250

== ENCOUNTER 2021-06-24 11:14 | Inpatient (IN) | payer MEDICARE, MEDICAID ==
[~2021-06-24] VITALS: Ht 175.3 cm; Wt 70.8 kg
[~2021-06-24 11:14] MED LIST changes: +AMOX1TAB15 PO; +SERT-158 PO
[2021-06-24 12:19] LABS: BASOPHILS % (AUTO) 0.4 % (0.0-2.0); EOSINOPHILS % (AUTO) 1.6 % (1.0-6.0); HEMATOCRIT 34.2 % (36-46); HEMOGLOBIN 10.9 g/dL (12.0-16.0); LYMPHOCYTES % (AUTO) 20.2 % (22.0-44.0); MEAN CORPUSCULAR HEMOGLOBIN 29.1 pg (26.0-34.0); MEAN CORPUSCULAR HGB CONC 31.9 G/dL (31.0-37.0); MEAN CORPUSCULAR VOLUME 91 fL (80-100); MONOCYTES # (AUTO) 0.9 K/uL (0.1-1.0); MONOCYTES % (AUTO) 18.9 % (2.0-9.0); NEUTROPHILS # (AUTO) 2.9 K/uL (1.8-7.7); NEUTROPHILS % (AUTO) 58.9 % (40.0-70.0); PLATELET COUNT (AUTO) 247 K/uL (150-450); RED BLOOD CELL COUNT(AUTO) 3.75 MIL/uL (4.00-5.20); RED CELL DISTRIBUTION WIDTH 14.7 % (11.5-14.5)
[2021-06-24 12:40] LABS: ANION GAP 8 mmol/L (8-16); CALCIUM, TOTAL 8.2 mg/dL (8.8-10.5); CARBON DIOXIDE 24 mmol/L (22-29); CHLORIDE 110 mmol/L (98-107); CREATININE 0.77 mg/dL (0.60-1.30); GLOMERULAR FILTR. RATE CALC > 60 mL/min (>60); GLUCOSE,RANDOM 107 mg/dL (70-110); POTASSIUM 3.4 mmol/L (3.5-5.1); SODIUM SERUM 142 mmol/L (136-145); UREA NITROGEN, BLOOD 17 mg/dL (7-18)
[2021-06-24 12:46] LABS: ALANINE AMINOTRANSFERASE 20 U/L (12-78); ALBUMIN 3.1 g/dL (3.4-5.0); ALKALINE PHOSPHATASE 66 U/L (46-116); ASPARTATE AMINOTRANSFERASE 16 U/L (15-37); BILIRUBIN,TOTAL 0.5 mg/dL (0.1-1.0); TOTAL PROTEIN, SERUM 7.6 g/dL (6.4-8.2)
[2021-06-24] MEDS ORDERED: HALOPERIDOL LACTATE 5 MG/ML VIAL IM ONE ×2 (15:45→17:00)
[2021-06-24] MEDS ORDERED: DiphenhydrAMINE HCL 50 MG/ML VIAL IM ONE (15:45)
[2021-06-24] MEDS ORDERED: LORazepam 2 MG/ML VIAL IM ONE ×2 (15:45→17:00)
[2021-06-24 16:11] LABS: COVID AG,FIA SOURCE NASOPHARYNGEAL
[2021-06-24 19:16] VITALS: BP 112/64
[2021-06-25 01:25] LABS: CHOL/HDL RATIO 3.4 (3.9-5.7); CHOLESTEROL 141 mg/dL (131-200); HDL CHOLESTEROL 42 mg/dL (40-60); LDL CHOL (CALC.) 87 mg/dL (0-130); TRIGLYCERIDES 59 mg/dL (15-150)
[2021-06-25] MEDS: DIVALPROEX SODIUM 500 MG DR TABLET PO SCH ×3 (11:30→17:00)
[2021-06-25] MEDS: SERTRALINE HCL 50 MG TABLET PO SCH ×2 (11:30→11:44)
[2021-06-25] MEDS: ARIPiprazole 15 MG TABLET PO SCH ×2 (11:30→11:46)
[2021-06-25] MEDS: BICTEGRAV/EMTRICIT/TENOFOV ALA 50-200-25 MG TABLET PO SCH ×2 (11:30→12:24)
[2021-06-25] MEDS ORDERED: CloNIDine HCL 0.1 MG TABLET PO PRN (17:00)
[2021-06-25] MEDS ORDERED: ACETAMINOPHEN 325 MG TABLET PO PRN (17:00)
[2021-06-25] MEDS ORDERED: POTASSIUM CHLORIDE 20 MEQ ER TABLET PO ONE (17:00)
[2021-06-25] MEDS ORDERED: LOPERAMIDE HCL 2 MG CAPSULE PO PRN (17:00)
[2021-06-25] MEDS ORDERED: DOCUSATE SODIUM 100 MG CAPSULE PO PRN (17:00)
[2021-06-25] MEDS ORDERED: OMEPRAZOLE 20 MG CAPSULE PO PRN (17:00)
[2021-06-25] MEDS ORDERED: MAGNESIUM HYDROXIDE SUSPENSION 30 ML UDCUP PO PRN (17:00)
[2021-06-25] MEDS ORDERED: BENZOCAINE/MENTHOL LOZENGE PO PRN (17:00)
[2021-06-25] MEDS ORDERED: PETROLATUM,WHITE 28 GM JELLY TP PRN (17:00)
[2021-06-25] MEDS ORDERED: BACITRACIN 28 GM OINTMENT TP PRN (17:00)
[2021-06-25] MEDS ORDERED: ONDANSETRON HCL 4 MG TABLET PO PRN (17:00)
[2021-06-25] MEDS ORDERED: ALBUTEROL SULFATE HFA 90 MCG/PUFF 8 GM INHALER IH PRN (17:00)
[2021-06-25] MEDS: MULTIVITAMINS WITH MINERALS, THERAPEUTIC TABLET PO SCH (17:00)
[2021-06-26 08:16] VITALS: BP 125/74
[2021-06-26] MEDS: DIVALPROEX SODIUM 500 MG DR TABLET PO SCH ×2 (08:24→16:33)
[2021-06-26] MEDS: ARIPiprazole 15 MG TABLET PO SCH (08:24)
[2021-06-26] MEDS: BICTEGRAV/EMTRICIT/TENOFOV ALA 50-200-25 MG TABLET PO SCH (08:24)
[2021-06-26] MEDS: SERTRALINE HCL 50 MG TABLET PO SCH (08:24)
[2021-06-26] MEDS: MULTIVITAMINS WITH MINERALS, THERAPEUTIC TABLET PO SCH ×2 (08:24→16:33)
[2021-06-26] MEDS: LORazepam 2 MG TABLET PO PRN (11:08)
[2021-06-26] MEDS: HALOPERIDOL 5 MG TABLET PO PRN ×2 (11:08→16:33)
[2021-06-26 16:09] VITALS: BP 127/75
[2021-06-27 07:41] LABS: POTASSIUM 4.2 mmol/L (3.5-5.1)
[2021-06-27] MEDS: DIVALPROEX SODIUM 500 MG DR TABLET PO SCH ×2 (08:05→16:27)
[2021-06-27] MEDS: ARIPiprazole 15 MG TABLET PO SCH (08:05)
[2021-06-27] MEDS: SERTRALINE HCL 50 MG TABLET PO SCH (08:06)
[2021-06-27] MEDS: MULTIVITAMINS WITH MINERALS, THERAPEUTIC TABLET PO SCH ×2 (08:06→16:27)
[2021-06-27] MEDS: BICTEGRAV/EMTRICIT/TENOFOV ALA 50-200-25 MG TABLET PO SCH (08:06)
[2021-06-27 17:22] VITALS: BP 156/88
[2021-06-27] MEDS: ZOLPIDEM TARTRATE 10 MG TABLET PO PRN (21:00)
[2021-06-28] MEDS: LORazepam 2 MG TABLET PO PRN ×2 (06:13→13:46)
[2021-06-28] MEDS: MULTIVITAMINS WITH MINERALS, THERAPEUTIC TABLET PO SCH ×2 (07:52→16:12)
[2021-06-28] MEDS: ARIPiprazole 15 MG TABLET PO SCH (07:52)
[2021-06-28] MEDS: SERTRALINE HCL 50 MG TABLET PO SCH (07:52)
[2021-06-28] MEDS: DIVALPROEX SODIUM 500 MG DR TABLET PO SCH ×2 (07:52→16:12)
[2021-06-28] MEDS: BICTEGRAV/EMTRICIT/TENOFOV ALA 50-200-25 MG TABLET PO SCH (08:40)
[2021-06-28 09:19] VITALS: BP 136/85
[2021-06-28 13:46] VITALS: BP 159/91
[2021-06-28 16:21] VITALS: BP 108/81
[2021-06-29] MEDS: LORazepam 2 MG TABLET PO PRN ×3 (01:33→13:19)
[2021-06-29] MEDS: ZOLPIDEM TARTRATE 10 MG TABLET PO PRN (01:33)
[2021-06-29] MEDS: ARIPiprazole 15 MG TABLET PO SCH (07:48)
[2021-06-29] MEDS: DIVALPROEX SODIUM 500 MG DR TABLET PO SCH ×2 (07:48→16:28)
[2021-06-29] MEDS: SERTRALINE HCL 50 MG TABLET PO SCH (07:48)
[2021-06-29] MEDS: MULTIVITAMINS WITH MINERALS, THERAPEUTIC TABLET PO SCH ×2 (07:48→16:28)
[2021-06-29] MEDS: HALOPERIDOL 5 MG TABLET PO PRN (07:48)
[2021-06-29] MEDS: BICTEGRAV/EMTRICIT/TENOFOV ALA 50-200-25 MG TABLET PO SCH (07:52)
[2021-06-29 08:12] VITALS: BP 116/66
[2021-06-30] MEDS: LORazepam 2 MG TABLET PO PRN (06:06)
[2021-06-30] MEDS: SERTRALINE HCL 50 MG TABLET PO SCH (07:43)
[2021-06-30] MEDS: DIVALPROEX SODIUM 500 MG DR TABLET PO SCH ×2 (07:43→16:10)
[2021-06-30] MEDS: MULTIVITAMINS WITH MINERALS, THERAPEUTIC TABLET PO SCH ×2 (07:43→16:10)
[2021-06-30] MEDS: BICTEGRAV/EMTRICIT/TENOFOV ALA 50-200-25 MG TABLET PO SCH (07:43)
[2021-06-30] MEDS: ARIPiprazole 15 MG TABLET PO SCH (07:43)
[2021-06-30 08:00] VITALS: BP 126/80
[2021-06-30 08:47] LABS: COVID AG,FIA SOURCE NASOPHARYNGEAL
[2021-06-30] MEDS: ZOLPIDEM TARTRATE 10 MG TABLET PO PRN (20:25)
[2021-07-01] MEDS: LORazepam 2 MG TABLET PO PRN ×2 (04:34→14:11)
[2021-07-01 08:18] VITALS: BP 130/76
[2021-07-01] MEDS: MULTIVITAMINS WITH MINERALS, THERAPEUTIC TABLET PO SCH ×2 (09:18→16:23)
[2021-07-01] MEDS: ARIPiprazole 15 MG TABLET PO SCH (09:19)
[2021-07-01] MEDS: DIVALPROEX SODIUM 500 MG DR TABLET PO SCH ×2 (09:19→16:24)
[2021-07-01] MEDS: BICTEGRAV/EMTRICIT/TENOFOV ALA 50-200-25 MG TABLET PO SCH (09:19)
[2021-07-01] MEDS: SERTRALINE HCL 50 MG TABLET PO SCH (09:19)
[2021-07-01 16:41] VITALS: BP 130/85
[2021-07-01] MEDS: ZOLPIDEM TARTRATE 10 MG TABLET PO PRN (20:41)
[2021-07-02] MEDS: DIVALPROEX SODIUM 500 MG DR TABLET PO SCH ×2 (08:00→16:53)
[2021-07-02] MEDS: ARIPiprazole 15 MG TABLET PO SCH (08:00)
[2021-07-02] MEDS: MULTIVITAMINS WITH MINERALS, THERAPEUTIC TABLET PO SCH ×2 (08:00→16:54)
[2021-07-02] MEDS: BICTEGRAV/EMTRICIT/TENOFOV ALA 50-200-25 MG TABLET PO SCH (08:00)
[2021-07-02] MEDS: SERTRALINE HCL 50 MG TABLET PO SCH (08:00)
[2021-07-02 08:24] VITALS: BP 137/82
[2021-07-02] MEDS: LORazepam 2 MG TABLET PO PRN (12:10)
[2021-07-02 16:57] VITALS: BP 115/73
[2021-07-02] MEDS: ZOLPIDEM TARTRATE 10 MG TABLET PO PRN (22:45)
[2021-07-03 04:00] VITALS: BP 107/82
[2021-07-03] MEDS: IBUPROFEN 600 MG TABLET PO PRN ×2 (04:16→16:49)
[2021-07-03 08:05] VITALS: BP_SYST 128; BP_SYST 135; BP_DIAS 77
[2021-07-03] MEDS: MULTIVITAMINS WITH MINERALS, THERAPEUTIC TABLET PO SCH ×2 (09:25→16:21)
[2021-07-03] MEDS: BICTEGRAV/EMTRICIT/TENOFOV ALA 50-200-25 MG TABLET PO SCH (09:25)
[2021-07-03] MEDS: ARIPiprazole 15 MG TABLET PO SCH (09:25)
[2021-07-03] MEDS: SERTRALINE HCL 50 MG TABLET PO SCH (09:25)
[2021-07-03] MEDS: DIVALPROEX SODIUM 500 MG DR TABLET PO SCH ×2 (09:25→16:21)
[2021-07-03 16:18] VITALS: BP 137/76
[2021-07-03] MEDS: LORazepam 2 MG TABLET PO PRN (16:49)
[2021-07-03] MEDS: MAG HYDROX/AL HYDROX/SIMETH ES 30 ML SUSPENSION UDCUP PO PRN (16:50)
[2021-07-04] VITALS: BP 133/78
[2021-07-04] MEDS: LORazepam 2 MG TABLET PO PRN ×2 (00:19→17:00)
[2021-07-04] MEDS: MAG HYDROX/AL HYDROX/SIMETH ES 30 ML SUSPENSION UDCUP PO PRN (00:21)
[2021-07-04] MEDS: ZOLPIDEM TARTRATE 10 MG TABLET PO PRN (00:42)
[2021-07-04 08:08] VITALS: BP 107/70
[2021-07-04] MEDS: MULTIVITAMINS WITH MINERALS, THERAPEUTIC TABLET PO SCH ×2 (08:44→16:53)
[2021-07-04] MEDS: ARIPiprazole 15 MG TABLET PO SCH (08:45)
[2021-07-04] MEDS: BICTEGRAV/EMTRICIT/TENOFOV ALA 50-200-25 MG TABLET PO SCH (08:45)
[2021-07-04] MEDS: DIVALPROEX SODIUM 500 MG DR TABLET PO SCH ×2 (08:45→16:53)
[2021-07-04] MEDS: SERTRALINE HCL 50 MG TABLET PO SCH (08:45)
[2021-07-04 17:00] VITALS: BP 136/65
[2021-07-04 17:41] VITALS: BP 136/65
[2021-07-05 00:30] VITALS: BP 121/67
[2021-07-05] MEDS: ZOLPIDEM TARTRATE 10 MG TABLET PO PRN ×2 (00:33→21:44)
[2021-07-05] MEDS: LORazepam 2 MG TABLET PO PRN (05:14)
[2021-07-05] MEDS: ARIPiprazole 15 MG TABLET PO SCH (09:02)
[2021-07-05] MEDS: SERTRALINE HCL 50 MG TABLET PO SCH (09:02)
[2021-07-05] MEDS: MULTIVITAMINS WITH MINERALS, THERAPEUTIC TABLET PO SCH ×2 (09:02→16:47)
[2021-07-05] MEDS: BICTEGRAV/EMTRICIT/TENOFOV ALA 50-200-25 MG TABLET PO SCH (09:04)
[2021-07-05] MEDS: MAG HYDROX/AL HYDROX/SIMETH ES 30 ML SUSPENSION UDCUP PO PRN ×2 (09:04→16:03)
[2021-07-05] MEDS: DIVALPROEX SODIUM 500 MG DR TABLET PO SCH ×2 (09:04→16:47)
[2021-07-05 16:37] VITALS: BP 114/62
[2021-07-06 01:50] VITALS: BP 116/64
[2021-07-06] MEDS: LORazepam 2 MG TABLET PO PRN (01:59)
[2021-07-06] MEDS: MULTIVITAMINS WITH MINERALS, THERAPEUTIC TABLET PO SCH (08:34)
[2021-07-06] MEDS: DIVALPROEX SODIUM 500 MG DR TABLET PO SCH (08:34)
[2021-07-06] MEDS: SERTRALINE HCL 50 MG TABLET PO SCH (08:34)
[2021-07-06] MEDS: BICTEGRAV/EMTRICIT/TENOFOV ALA 50-200-25 MG TABLET PO SCH (08:34)
[2021-07-06] MEDS: ARIPiprazole 15 MG TABLET PO SCH (08:34)
[2021-07-06 08:56] VITALS: BP 109/69
== END 2021-07-06 15:30 | disposition home or self-care (01) | DRG 885 ==
LOC: EMS 11:14 → 3EC 18:13 → 3EI 07-02 22:03
PROVIDERS: ADMIT Psychiatry & Neurology Psychiatry; ATTEND Psychiatry & Neurology Psychiatry
DX: F20.0 Paranoid schizophrenia (principal); Z93.3 Colostomy status; F32.9 Major depressive disorder, single episode, unspecified; F41.9 Anxiety disorder, unspecified; G47.00 Insomnia, unspecified; Z20.822 Contact with and (suspected) exposure to COVID-19; F17.210 Nicotine dependence, cigarettes, uncomplicated; I10 Essential (primary) hypertension; J44.9 Chronic obstructive pulmonary disease, unspecified; Z88.1 Allergy status to other antibiotic agents; Z79.899 Other long term (current) drug therapy; Z59.00 Homelessness unspecified; Z71.6 Tobacco abuse counseling
CPT/HCPCS: 80053; 80061; 84132; 84295; 85025; 99291; G0480; J1200; J1630; J2060; Q9967

== ENCOUNTER 2021-07-24 13:45 | Emergency (ER) | payer MEDICARE, MEDICAID ==
[~2021-07-24] VITALS: Ht 177.8 cm; Wt 59.1 kg
[~2021-07-24 13:45] MED LIST changes: -AMOX1TAB15 PO; -SERT-158 PO; -THIA100T80 PO
[2021-07-24] MEDS ORDERED: ACETAMINOPHEN 325 MG TABLET PO ONE (17:30)
[2021-07-24 17:55] LABS: BASOPHILS % (AUTO) 0.7 % (0.0-2.0); EOSINOPHILS % (AUTO) 3.5 % (1.0-6.0); HEMATOCRIT 37.1 % (36-46); HEMOGLOBIN 12.2 g/dL (12.0-16.0); LYMPHOCYTES # (AUTO) 1.3 K/uL (1.0-4.8); LYMPHOCYTES % (AUTO) 28.5 % (22.0-44.0); MEAN CORPUSCULAR HEMOGLOBIN 29.2 pg (26.0-34.0); MEAN CORPUSCULAR HGB CONC 32.8 G/dL (31.0-37.0); MEAN CORPUSCULAR VOLUME 89 fL (80-100); MONOCYTES # (AUTO) 0.6 K/uL (0.1-1.0); MONOCYTES % (AUTO) 12.4 % (2.0-9.0); NEUTROPHILS # (AUTO) 2.5 K/uL (1.8-7.7); NEUTROPHILS % (AUTO) 54.9 % (40.0-70.0); PLATELET COUNT (AUTO) 236 K/uL (150-450); RED BLOOD CELL COUNT(AUTO) 4.18 MIL/uL (4.00-5.20); RED CELL DISTRIBUTION WIDTH 14.6 % (11.5-14.5)
[2021-07-24 18:07] LABS: ANION GAP 3 mmol/L (8-16); CALCIUM, TOTAL 8.7 mg/dL (8.8-10.5); CARBON DIOXIDE 31 mmol/L (22-29); CHLORIDE 109 mmol/L (98-107); CREATININE 0.75 mg/dL (0.60-1.30); GLOMERULAR FILTR. RATE CALC > 60 mL/min (>60); GLUCOSE,RANDOM 94 mg/dL (70-110); POTASSIUM 4.3 mmol/L (3.5-5.1); SODIUM SERUM 143 mmol/L (136-145); UREA NITROGEN, BLOOD 11 mg/dL (7-18)
[2021-07-24 18:19] LABS: ALANINE AMINOTRANSFERASE 22 U/L (12-78); ALKALINE PHOSPHATASE 68 U/L (46-116); ASPARTATE AMINOTRANSFERASE 15 U/L (15-37); BILIRUBIN,TOTAL 0.3 mg/dL (0.1-1.0); LIPASE 150 U/L (73-393); TOTAL PROTEIN, SERUM 7.2 g/dL (6.4-8.2)
[2021-07-24 18:59] VITALS: BP 109/57
== END 2021-07-24 21:29 | disposition home or self-care (01) ==
LOC: EMS 13:47
DX: N99.512 Cystostomy malfunction (principal); R10.13 Epigastric pain; J44.9 Chronic obstructive pulmonary disease, unspecified; F20.9 Schizophrenia, unspecified; F17.210 Nicotine dependence, cigarettes, uncomplicated; Z59.00 Homelessness unspecified; Z88.1 Allergy status to other antibiotic agents
CPT/HCPCS: 74176; 80053; 83690; 85025; 99284

== ENCOUNTER 2021-08-19 21:56 | Emergency (ER) | payer MEDICARE, OTHER ==
[~2021-08-19] VITALS: Ht 179.1 cm; Wt 59.1 kg
[2021-08-20 00:56] VITALS: BP 146/80
== END 2021-08-20 01:19 | disposition home or self-care (01) ==
LOC: EMS 22:01
DX: Z43.3 Encounter for attention to colostomy (principal)
CPT/HCPCS: 99281; Z7502

== ENCOUNTER 2021-11-06 10:55 | Inpatient (IN) | payer MEDICARE, MEDICAID ==
[~2021-11-06] VITALS: Ht 177.8 cm; Wt 57.0 kg
[2021-11-06 11:49] LABS: BASOPHILS % (AUTO) 0.6 % (0.0-2.0); EOSINOPHILS % (AUTO) 1.6 % (1.0-6.0); HEMATOCRIT 33.7 % (36-46); HEMOGLOBIN 11.2 g/dL (12.0-16.0); LYMPHOCYTES # (AUTO) 0.8 K/uL (1.0-4.8); LYMPHOCYTES % (AUTO) 16.4 % (22.0-44.0); MEAN CORPUSCULAR HEMOGLOBIN 29.1 pg (26.0-34.0); MEAN CORPUSCULAR HGB CONC 33.1 G/dL (31.0-37.0); MEAN CORPUSCULAR VOLUME 88 fL (80-100); MONOCYTES # (AUTO) 0.6 K/uL (0.1-1.0); MONOCYTES % (AUTO) 12.9 % (2.0-9.0); NEUTROPHILS # (AUTO) 3.4 K/uL (1.8-7.7); NEUTROPHILS % (AUTO) 68.5 % (40.0-70.0); PLATELET COUNT (AUTO) 268 K/uL (150-450); RED BLOOD CELL COUNT(AUTO) 3.84 MIL/uL (4.00-5.20); RED CELL DISTRIBUTION WIDTH 15.2 % (11.5-14.5)
[2021-11-06 12:03] LABS: ALANINE AMINOTRANSFERASE 28 U/L (12-78); ALBUMIN 2.7 g/dL (3.4-5.0); ALKALINE PHOSPHATASE 64 U/L (46-116); ANION GAP 7 mmol/L (8-16); ASPARTATE AMINOTRANSFERASE 27 U/L (15-37); BILIRUBIN,TOTAL 0.4 mg/dL (0.1-1.0); CALCIUM, TOTAL 8.2 mg/dL (8.8-10.5); CARBON DIOXIDE 28 mmol/L (22-29); CHLORIDE 106 mmol/L (98-107); CREATININE 0.82 mg/dL (0.60-1.30); GLOMERULAR FILTR. RATE CALC > 60 mL/min (>60); GLUCOSE,RANDOM 113 mg/dL (70-110); SODIUM SERUM 141 mmol/L (136-145); TOTAL PROTEIN, SERUM 6.7 g/dL (6.4-8.2); UREA NITROGEN, BLOOD 9 mg/dL (7-18)
[2021-11-06 12:05] LABS: COVID AG,FIA SOURCE NASOPHARYNGEAL
[2021-11-06 12:05] LABS: POTASSIUM 2.8 mmol/L (3.5-5.1); VALPROIC ACID < 3 mcg/mL (50-100)
[2021-11-06] MEDS ORDERED: POTASSIUM CHLORIDE 20 MEQ ER TABLET PO ONE (12:30)
[2021-11-06 17:14] LABS: POTASSIUM 3.7 mmol/L (3.5-5.1)
[2021-11-06] MEDS ORDERED: PANTOPRAZOLE SODIUM 40 MG DR TABLET PO ONE (17:15)
[2021-11-07 01:24] LABS: CHOL/HDL RATIO 2.7 (3.9-5.7)
[2021-11-07] MEDS: LORazepam 2 MG TABLET PO PRN ×2 (08:05→15:07)
[2021-11-07] MEDS: HALOPERIDOL 5 MG TABLET PO PRN ×2 (08:06→15:07)
[2021-11-07] MEDS ORDERED: PETROLATUM,WHITE 28 GM JELLY TP PRN ×2 (14:15)
[2021-11-07] MEDS ORDERED: ONDANSETRON HCL 4 MG TABLET PO PRN ×2 (14:15)
[2021-11-07] MEDS ORDERED: NICOTINE 14 MG/24 HOUR PATCH TD PRN ×2 (14:15)
[2021-11-07] MEDS ORDERED: ACETAMINOPHEN 325 MG TABLET PO PRN ×2 (14:15)
[2021-11-07] MEDS ORDERED: CloNIDine HCL 0.1 MG TABLET PO PRN ×2 (14:15)
[2021-11-07] MEDS ORDERED: DOCUSATE SODIUM 100 MG CAPSULE PO PRN ×2 (14:15)
[2021-11-07] MEDS ORDERED: GuaiFENesin/D-METHORPHAN [SUGAR-FREE] 200-20MG/10 ML SYRUP UDCUP PO PRN ×2 (14:15)
[2021-11-07] MEDS ORDERED: IBUPROFEN 400 MG TABLET PO PRN ×2 (14:15)
[2021-11-07] MEDS ORDERED: LOPERAMIDE HCL 2 MG CAPSULE PO PRN ×2 (14:15)
[2021-11-07] MEDS ORDERED: MAGNESIUM HYDROXIDE SUSPENSION 30 ML UDCUP PO PRN ×2 (14:15)
[2021-11-07] MEDS ORDERED: ALBUTEROL SULFATE HFA 90 MCG/PUFF 8 GM INHALER IH PRN ×2 (14:15)
[2021-11-07] MEDS ORDERED: MAG HYDROX/AL HYDROX/SIMETH ES 30 ML SUSPENSION UDCUP PO PRN ×2 (14:15)
[2021-11-08 02:15] LABS: APPEARANCE,URINE CLEAR (CLEAR); BILIRUBIN,URINE NEGATIVE (NEGATIVE); GLUCOSE, URINE (UA) NEGATIVE (NEGATIVE); KETONES,URINE NEGATIVE (NEGATIVE); LEUKOCYTE ESTERASE ,URINE NEGATIVE (NEGATIVE); NITRATE,URINE NEGATIVE (NEGATIVE); OCCULT BLOOD,URINE NEGATIVE (NEGATIVE); PROTEIN,URINE NEGATIVE (NEGATIVE); UROBILINOGEN,URINE 0.2 mg/dL (<=1.0)
[2021-11-08 02:20] LABS: AMPHET/METH SCREEN,URINE NEGATIVE (NEGATIVE); BARBITURATE SCREEN, URINE NEGATIVE (NEGATIVE); BENZODIAZEPINES SCREEN,URINE NEGATIVE (NEGATIVE); CANNABINOID SCREEN,URINE NEGATIVE (NEGATIVE); COCAINE SCREEN,URINE NEGATIVE (NEGATIVE); METHADONE SCREEN, URINE NEGATIVE (NEGATIVE); OPIATE SCREEN,URINE NEGATIVE (NEGATIVE)
[2021-11-08 02:21] LABS: PHENCYCLIDINE SCREEN,URINE NEGATIVE (NEGATIVE)
[2021-11-08] MEDS: BICTEGRAV/EMTRICIT/TENOFOV ALA 50-200-25 MG TABLET PO SCH (09:00)
[2021-11-08] MEDS: LORazepam 2 MG TABLET PO PRN (11:50)
[2021-11-08] MEDS: HALOPERIDOL 5 MG TABLET PO PRN (11:50)
[2021-11-09 01:50] VITALS: BP 145/80
[2021-11-09] MEDS: BICTEGRAV/EMTRICIT/TENOFOV ALA 50-200-25 MG TABLET PO SCH ×2 (08:17→08:56)
[2021-11-09 08:18] VITALS: BP 128/82
[2021-11-09] MEDS: HALOPERIDOL 5 MG TABLET PO PRN (08:53)
[2021-11-09] MEDS: LORazepam 2 MG TABLET PO PRN (08:53)
[2021-11-09] MEDS: SERTRALINE HCL 50 MG TABLET PO SCH (12:26)
[2021-11-09] MEDS: DIVALPROEX SODIUM 500 MG DR TABLET PO SCH ×2 (12:26→20:23)
[2021-11-09] MEDS: ARIPiprazole 15 MG TABLET PO SCH (12:26)
[2021-11-09 13:52] VITALS: BP 124/78
[2021-11-09 19:04] VITALS: BP 122/80
[2021-11-10 02:28] VITALS: BP 147/80
[2021-11-10 03:15] VITALS: BP 146/78
[2021-11-10] MEDS: LORazepam 2 MG TABLET PO PRN (03:27)
[2021-11-10 08:00] VITALS: BP 113/60
[2021-11-10] MEDS: DIVALPROEX SODIUM 500 MG DR TABLET PO SCH ×2 (09:23→20:33)
[2021-11-10] MEDS: SERTRALINE HCL 50 MG TABLET PO SCH (09:23)
[2021-11-10] MEDS: BICTEGRAV/EMTRICIT/TENOFOV ALA 50-200-25 MG TABLET PO SCH (09:23)
[2021-11-10] MEDS: ARIPiprazole 15 MG TABLET PO SCH (09:24)
[2021-11-10 16:21] VITALS: BP 111/59
[2021-11-11] MEDS: ZOLPIDEM TARTRATE 10 MG TABLET PO PRN (00:20)
[2021-11-11] MEDS: ARIPiprazole 15 MG TABLET PO SCH (08:26)
[2021-11-11] MEDS: SERTRALINE HCL 50 MG TABLET PO SCH (08:26)
[2021-11-11] MEDS: BICTEGRAV/EMTRICIT/TENOFOV ALA 50-200-25 MG TABLET PO SCH (08:26)
[2021-11-11] MEDS: DIVALPROEX SODIUM 500 MG DR TABLET PO SCH ×2 (08:26→20:29)
[2021-11-11 10:13] VITALS: BP 105/52
[2021-11-11 16:42] VITALS: BP 100/55
[2021-11-12 03:20] VITALS: BP 107/59
[2021-11-12] MEDS: LORazepam 2 MG TABLET PO PRN (03:23)
[2021-11-12 08:56] VITALS: BP 108/64
[2021-11-12] MEDS: DIVALPROEX SODIUM 500 MG DR TABLET PO SCH ×2 (09:18→20:41)
[2021-11-12] MEDS: BICTEGRAV/EMTRICIT/TENOFOV ALA 50-200-25 MG TABLET PO SCH (09:18)
[2021-11-12] MEDS: SERTRALINE HCL 50 MG TABLET PO SCH (09:18)
[2021-11-12] MEDS: ARIPiprazole 15 MG TABLET PO SCH (09:19)
[2021-11-12 14:35] LABS: COVID AG,FIA SOURCE NASOPHARYNGEAL
[2021-11-12 16:34] VITALS: BP 98/69
[2021-11-13 02:40] VITALS: BP 108/68
[2021-11-13] MEDS: LORazepam 2 MG TABLET PO PRN ×2 (02:44→23:00)
[2021-11-13] MEDS: ARIPiprazole 15 MG TABLET PO SCH (08:31)
[2021-11-13] MEDS: BICTEGRAV/EMTRICIT/TENOFOV ALA 50-200-25 MG TABLET PO SCH (08:31)
[2021-11-13] MEDS: DIVALPROEX SODIUM 500 MG DR TABLET PO SCH ×2 (08:31→20:15)
[2021-11-13] MEDS: SERTRALINE HCL 50 MG TABLET PO SCH (08:31)
[2021-11-13 17:06] VITALS: BP 135/87
[2021-11-14] MEDS: ARIPiprazole 15 MG TABLET PO SCH (08:36)
[2021-11-14] MEDS: SERTRALINE HCL 50 MG TABLET PO SCH (08:36)
[2021-11-14] MEDS: DIVALPROEX SODIUM 500 MG DR TABLET PO SCH ×2 (08:36→21:28)
[2021-11-14] MEDS: BICTEGRAV/EMTRICIT/TENOFOV ALA 50-200-25 MG TABLET PO SCH (08:36)
[2021-11-14] MEDS: LORazepam 2 MG TABLET PO PRN (08:39)
[2021-11-14 09:10] VITALS: BP 112/74
[2021-11-14 16:25] VITALS: BP 115/80
[2021-11-15] MEDS: LORazepam 2 MG TABLET PO PRN ×2 (00:09→22:45)
[2021-11-15 00:34] VITALS: BP 113/64
[2021-11-15] MEDS: ZOLPIDEM TARTRATE 10 MG TABLET PO PRN (01:23)
[2021-11-15] MEDS: DIVALPROEX SODIUM 500 MG DR TABLET PO SCH ×2 (09:35→21:12)
[2021-11-15] MEDS: BICTEGRAV/EMTRICIT/TENOFOV ALA 50-200-25 MG TABLET PO SCH (09:35)
[2021-11-15] MEDS: ARIPiprazole 15 MG TABLET PO SCH (09:35)
[2021-11-15] MEDS: SERTRALINE HCL 50 MG TABLET PO SCH (09:35)
[2021-11-15 10:16] VITALS: BP 103/70
[2021-11-15 16:39] VITALS: BP 118/71
[2021-11-16] MEDS: ZOLPIDEM TARTRATE 10 MG TABLET PO PRN (02:19)
[2021-11-16 02:22] VITALS: BP 109/73
[2021-11-16 10:04] VITALS: BP 155/89
[2021-11-16] MEDS: DIVALPROEX SODIUM 500 MG DR TABLET PO SCH (10:39)
[2021-11-16] MEDS: ARIPiprazole 15 MG TABLET PO SCH (10:39)
[2021-11-16] MEDS: BICTEGRAV/EMTRICIT/TENOFOV ALA 50-200-25 MG TABLET PO SCH (10:39)
[2021-11-16] MEDS: SERTRALINE HCL 50 MG TABLET PO SCH (10:39)
[2021-11-16] MEDS ORDERED: ARIP15TA27 PO (11:07)
[2021-11-16] MEDS ORDERED: DIVA-112 PO (11:07)
[2021-11-16] MEDS ORDERED: SERT-439 PO (11:07)
== END 2021-11-16 14:15 | disposition home or self-care (01) | DRG 885 ==
LOC: EMS 11:23 → 3EI 11-09 01:33 → EMS 11-09 01:36
PROVIDERS: ADMIT Psychiatry & Neurology Psychiatry; ATTEND Psychiatry & Neurology Psychiatry
DX: F25.0 Schizoaffective disorder, bipolar type (principal); F14.90 Cocaine use, unspecified, uncomplicated; D64.9 Anemia, unspecified; E11.9 Type 2 diabetes mellitus without complications; F17.200 Nicotine dependence, unspecified, uncomplicated; I10 Essential (primary) hypertension; J44.9 Chronic obstructive pulmonary disease, unspecified; K64.9 Unspecified hemorrhoids; Z21 Asymptomatic human immunodeficiency virus [HIV] infection status; Z20.822 Contact with and (suspected) exposure to COVID-19; Z59.00 Homelessness unspecified; Z79.899 Other long term (current) drug therapy; Z87.440 Personal history of urinary (tract) infections; Z88.1 Allergy status to other antibiotic agents
CPT/HCPCS: 80053; 80061; 80164; 81003; 83735; 84132; 85025; 87081; 99291; G0480; Q9967

== ENCOUNTER 2021-11-21 01:22 | Inpatient (IN) | payer MEDICARE, MEDICAID ==
[~2021-11-21] VITALS: Ht 175.3 cm; Wt 55.8 kg
[~2021-11-21 01:22] MED LIST changes: -MULT-1239 PO
[2021-11-21 01:42] LABS: COVID AG,FIA SOURCE NASOPHARYNGEAL
[2021-11-21 01:44] LABS: BASOPHILS % (AUTO) 0.7 % (0.0-2.0); EOSINOPHILS % (AUTO) 0.3 % (1.0-6.0); HEMATOCRIT 29.7 % (36-46); HEMOGLOBIN 10.1 g/dL (12.0-16.0); LYMPHOCYTES # (AUTO) 0.6 K/uL (1.0-4.8); LYMPHOCYTES % (AUTO) 7.6 % (22.0-44.0); MEAN CORPUSCULAR HEMOGLOBIN 29.2 pg (26.0-34.0); MEAN CORPUSCULAR HGB CONC 33.9 G/dL (31.0-37.0); MEAN CORPUSCULAR VOLUME 86 fL (80-100); MONOCYTES # (AUTO) 0.7 K/uL (0.1-1.0); MONOCYTES % (AUTO) 8.4 % (2.0-9.0); NEUTROPHILS # (AUTO) 6.5 K/uL (1.8-7.7); PLATELET COUNT (AUTO) 299 K/uL (150-450); RED BLOOD CELL COUNT(AUTO) 3.44 MIL/uL (4.00-5.20); RED CELL DISTRIBUTION WIDTH 15.2 % (11.5-14.5)
[2021-11-21 01:53] LABS: ANION GAP 16 mmol/L (8-16); CALCIUM, TOTAL 8.3 mg/dL (8.8-10.5); CARBON DIOXIDE 20 mmol/L (22-29); CHLORIDE 102 mmol/L (98-107); CREATININE 1.65 mg/dL (0.60-1.30); GLOMERULAR FILTR. RATE CALC 31 mL/min (>60); GLUCOSE,RANDOM 68 mg/dL (70-110); POTASSIUM 4.1 mmol/L (3.5-5.1); SODIUM SERUM 138 mmol/L (136-145); UREA NITROGEN, BLOOD 52 mg/dL (7-18)
[2021-11-21 01:59] LABS: ALANINE AMINOTRANSFERASE 23 U/L (12-78); ALBUMIN 3.4 g/dL (3.4-5.0); ALKALINE PHOSPHATASE 72 U/L (46-116); ASPARTATE AMINOTRANSFERASE 36 U/L (15-37); BILIRUBIN,TOTAL 0.5 mg/dL (0.1-1.0); TOTAL PROTEIN, SERUM 7.5 g/dL (6.4-8.2)
[2021-11-21 03:02] LABS: GLUCOSE,POINT OF CARE 92 MG/DL (70-110)
[2021-11-21] MEDS ORDERED: HALOPERIDOL 5 MG TABLET PO PRN (03:30)
[2021-11-21] MEDS: LORazepam 2 MG TABLET PO PRN (05:07)
[2021-11-21 09:24] VITALS: BP 116/70
[2021-11-21 10:00] VITALS: BP 116/70
[2021-11-21] MEDS ORDERED: PNEUMOCOCCAL VACCINE POLYVALENT 0.5 ML VIAL [PPSV23] IM. ONE (11:15)
[2021-11-21] MEDS ORDERED: ONDANSETRON HCL 4 MG TABLET PO PRN (11:45)
[2021-11-21] MEDS ORDERED: IBUPROFEN 400 MG TABLET PO PRN (11:45)
[2021-11-21] MEDS ORDERED: PETROLATUM,WHITE 28 GM JELLY TP PRN (11:45)
[2021-11-21] MEDS ORDERED: LOPERAMIDE HCL 2 MG CAPSULE PO PRN (11:45)
[2021-11-21] MEDS ORDERED: CloNIDine HCL 0.1 MG TABLET PO PRN (11:45)
[2021-11-21] MEDS ORDERED: GuaiFENesin/D-METHORPHAN [SUGAR-FREE] 200-20MG/10 ML SYRUP UDCUP PO PRN (11:45)
[2021-11-21] MEDS ORDERED: NICOTINE 14 MG/24 HOUR PATCH TD PRN (11:45)
[2021-11-21] MEDS ORDERED: ACETAMINOPHEN 325 MG TABLET PO PRN (11:45)
[2021-11-21] MEDS ORDERED: MAG HYDROX/AL HYDROX/SIMETH ES 30 ML SUSPENSION UDCUP PO PRN (11:45)
[2021-11-21] MEDS ORDERED: DOCUSATE SODIUM 100 MG CAPSULE PO PRN (11:45)
[2021-11-21] MEDS ORDERED: MAGNESIUM HYDROXIDE SUSPENSION 30 ML UDCUP PO PRN (11:45)
[2021-11-21] MEDS ORDERED: ALBUTEROL SULFATE HFA 90 MCG/PUFF 8 GM INHALER IH PRN (11:45)
[2021-11-21] MEDS: SERTRALINE HCL 50 MG TABLET PO SCH (13:13)
[2021-11-21] MEDS: DIVALPROEX SODIUM 500 MG DR TABLET PO SCH ×2 (13:13→20:45)
[2021-11-21] MEDS: ARIPiprazole 15 MG TABLET PO SCH (13:13)
[2021-11-21 16:00] VITALS: BP 106/62
[2021-11-21 16:19] VITALS: BP 106/52
[2021-11-22] MEDS: LORazepam 2 MG TABLET PO PRN ×2 (00:21→09:47)
[2021-11-22 00:26] VITALS: BP 102/61
[2021-11-22 00:33] VITALS: BP 102/61
[2021-11-22 09:14] VITALS: BP 113/57
[2021-11-22] MEDS: DIVALPROEX SODIUM 500 MG DR TABLET PO SCH ×2 (09:45→20:26)
[2021-11-22] MEDS: SERTRALINE HCL 50 MG TABLET PO SCH (09:45)
[2021-11-22] MEDS: ARIPiprazole 15 MG TABLET PO SCH (09:45)
[2021-11-22] MEDS: BICTEGRAV/EMTRICIT/TENOFOV ALA 50-200-25 MG TABLET PO SCH (09:46)
[2021-11-23 01:20] VITALS: BP 111/60
[2021-11-23] MEDS: LORazepam 2 MG TABLET PO PRN ×2 (01:22→22:16)
[2021-11-23] MEDS: ARIPiprazole 15 MG TABLET PO SCH (08:37)
[2021-11-23] MEDS: BICTEGRAV/EMTRICIT/TENOFOV ALA 50-200-25 MG TABLET PO SCH (08:37)
[2021-11-23] MEDS: MULTIVITAMINS WITH MINERALS, THERAPEUTIC TABLET PO SCH (08:37)
[2021-11-23] MEDS: SERTRALINE HCL 50 MG TABLET PO SCH (08:37)
[2021-11-23] MEDS: THIAMINE 100 MG TABLET PO SCH (08:37)
[2021-11-23] MEDS: DIVALPROEX SODIUM 500 MG DR TABLET PO SCH ×2 (08:37→20:22)
[2021-11-23 09:47] VITALS: BP 121/83
[2021-11-23 09:56] LABS: CHOL/HDL RATIO 3.3 (3.9-5.7); MAGNESIUM 1.5 mg/dL (1.80-2.40); PHOSPHORUS 2.5 mg/dL (2.5-4.9)
[2021-11-23 16:00] VITALS: BP 135/85
[2021-11-24 01:50] VITALS: BP 138/79
[2021-11-24] MEDS: MULTIVITAMINS WITH MINERALS, THERAPEUTIC TABLET PO SCH (08:36)
[2021-11-24] MEDS: THIAMINE 100 MG TABLET PO SCH (08:36)
[2021-11-24] MEDS: DIVALPROEX SODIUM 500 MG DR TABLET PO SCH ×2 (08:36→20:38)
[2021-11-24] MEDS: BICTEGRAV/EMTRICIT/TENOFOV ALA 50-200-25 MG TABLET PO SCH (08:36)
[2021-11-24] MEDS: ARIPiprazole 15 MG TABLET PO SCH (08:36)
[2021-11-24] MEDS: SERTRALINE HCL 50 MG TABLET PO SCH (08:36)
[2021-11-24 09:16] VITALS: BP 146/86
[2021-11-24] MEDS: LORazepam 2 MG TABLET PO PRN ×2 (16:24→22:53)
[2021-11-25 05:59] VITALS: BP 119/82
[2021-11-25] MEDS: LORazepam 2 MG TABLET PO PRN ×2 (06:05→22:03)
[2021-11-25 08:00] VITALS: BP 131/88
[2021-11-25] MEDS: MULTIVITAMINS WITH MINERALS, THERAPEUTIC TABLET PO SCH (08:45)
[2021-11-25] MEDS: DIVALPROEX SODIUM 500 MG DR TABLET PO SCH ×2 (08:45→20:01)
[2021-11-25] MEDS: THIAMINE 100 MG TABLET PO SCH (08:46)
[2021-11-25] MEDS: BICTEGRAV/EMTRICIT/TENOFOV ALA 50-200-25 MG TABLET PO SCH (08:46)
[2021-11-25] MEDS: SERTRALINE HCL 50 MG TABLET PO SCH (08:46)
[2021-11-25] MEDS: ARIPiprazole 15 MG TABLET PO SCH (08:47)
[2021-11-25] MEDS ORDERED: MAGNESIUM OXIDE 400 MG TABLET PO ONE (15:30)
[2021-11-26 02:35] VITALS: BP 124/72
[2021-11-26] MEDS: BICTEGRAV/EMTRICIT/TENOFOV ALA 50-200-25 MG TABLET PO SCH (08:41)
[2021-11-26] MEDS: DIVALPROEX SODIUM 500 MG DR TABLET PO SCH ×2 (08:41→20:50)
[2021-11-26] MEDS: SERTRALINE HCL 50 MG TABLET PO SCH (08:41)
[2021-11-26] MEDS: MULTIVITAMINS WITH MINERALS, THERAPEUTIC TABLET PO SCH (08:41)
[2021-11-26] MEDS: ARIPiprazole 15 MG TABLET PO SCH (08:41)
[2021-11-26] MEDS: THIAMINE 100 MG TABLET PO SCH (08:41)
[2021-11-26 09:00] VITALS: BP 119/63
[2021-11-26] MEDS: LORazepam 2 MG TABLET PO PRN (10:28)
[2021-11-27 01:05] VITALS: BP 124/75
[2021-11-27] MEDS: ZOLPIDEM TARTRATE 10 MG TABLET PO PRN ×2 (01:11→22:37)
[2021-11-27] MEDS: DIVALPROEX SODIUM 500 MG DR TABLET PO SCH ×2 (08:23→20:47)
[2021-11-27] MEDS: BICTEGRAV/EMTRICIT/TENOFOV ALA 50-200-25 MG TABLET PO SCH (08:23)
[2021-11-27] MEDS: MULTIVITAMINS WITH MINERALS, THERAPEUTIC TABLET PO SCH (08:23)
[2021-11-27] MEDS: SERTRALINE HCL 50 MG TABLET PO SCH (08:23)
[2021-11-27] MEDS: ARIPiprazole 15 MG TABLET PO SCH (08:23)
[2021-11-27] MEDS: THIAMINE 100 MG TABLET PO SCH (08:23)
[2021-11-27 09:00] VITALS: BP 160/94
[2021-11-27 10:41] LABS: COVID AG,FIA SOURCE NASOPHARYNGEAL
[2021-11-27] MEDS: LORazepam 2 MG TABLET PO PRN (12:14)
[2021-11-27 16:00] VITALS: BP 146/91
[2021-11-28 03:10] VITALS: BP 122/80
[2021-11-28] MEDS: LORazepam 2 MG TABLET PO PRN ×2 (03:17→12:29)
[2021-11-28 08:04] VITALS: BP 123/84
[2021-11-28] MEDS: SERTRALINE HCL 50 MG TABLET PO SCH (08:32)
[2021-11-28] MEDS: ARIPiprazole 15 MG TABLET PO SCH (08:32)
[2021-11-28] MEDS: MULTIVITAMINS WITH MINERALS, THERAPEUTIC TABLET PO SCH (08:32)
[2021-11-28] MEDS: THIAMINE 100 MG TABLET PO SCH (08:32)
[2021-11-28] MEDS: DIVALPROEX SODIUM 500 MG DR TABLET PO SCH ×2 (08:32→20:05)
[2021-11-28] MEDS: BICTEGRAV/EMTRICIT/TENOFOV ALA 50-200-25 MG TABLET PO SCH (08:32)
[2021-11-28 16:00] VITALS: BP 140/90
[2021-11-28] MEDS: ZOLPIDEM TARTRATE 10 MG TABLET PO PRN (21:30)
[2021-11-29] MEDS: LORazepam 2 MG TABLET PO PRN ×2 (02:20→09:00)
[2021-11-29 02:23] VITALS: BP 111/66
[2021-11-29 08:00] VITALS: BP 125/84
[2021-11-29] MEDS: DIVALPROEX SODIUM 500 MG DR TABLET PO SCH ×2 (08:19→20:01)
[2021-11-29] MEDS: SERTRALINE HCL 50 MG TABLET PO SCH (08:19)
[2021-11-29] MEDS: THIAMINE 100 MG TABLET PO SCH (08:19)
[2021-11-29] MEDS: BICTEGRAV/EMTRICIT/TENOFOV ALA 50-200-25 MG TABLET PO SCH (08:19)
[2021-11-29] MEDS: ARIPiprazole 15 MG TABLET PO SCH (08:19)
[2021-11-29] MEDS: MULTIVITAMINS WITH MINERALS, THERAPEUTIC TABLET PO SCH (08:19)
[2021-11-29 16:55] VITALS: BP 122/75
[2021-11-29] MEDS: ZOLPIDEM TARTRATE 10 MG TABLET PO PRN (22:32)
[2021-11-30 03:31] VITALS: BP 106/57
[2021-11-30] MEDS: LORazepam 2 MG TABLET PO PRN ×2 (03:31→18:09)
[2021-11-30 08:00] VITALS: BP 142/80
[2021-11-30] MEDS: BICTEGRAV/EMTRICIT/TENOFOV ALA 50-200-25 MG TABLET PO SCH (08:31)
[2021-11-30] MEDS: DIVALPROEX SODIUM 500 MG DR TABLET PO SCH ×2 (08:31→20:56)
[2021-11-30] MEDS: MULTIVITAMINS WITH MINERALS, THERAPEUTIC TABLET PO SCH (08:31)
[2021-11-30] MEDS: ARIPiprazole 15 MG TABLET PO SCH (08:31)
[2021-11-30] MEDS: THIAMINE 100 MG TABLET PO SCH (08:32)
[2021-11-30] MEDS: SERTRALINE HCL 50 MG TABLET PO SCH (08:32)
[2021-11-30 16:54] VITALS: BP 120/61
[2021-11-30 18:09] VITALS: BP 125/69
[2021-12-01 08:00] VITALS: BP 116/58
[2021-12-01] MEDS: SERTRALINE HCL 50 MG TABLET PO SCH (08:15)
[2021-12-01] MEDS: ARIPiprazole 15 MG TABLET PO SCH (08:15)
[2021-12-01] MEDS: DIVALPROEX SODIUM 500 MG DR TABLET PO SCH (08:15)
[2021-12-01] MEDS: MULTIVITAMINS WITH MINERALS, THERAPEUTIC TABLET PO SCH (08:15)
[2021-12-01] MEDS: BICTEGRAV/EMTRICIT/TENOFOV ALA 50-200-25 MG TABLET PO SCH (08:15)
[2021-12-01] MEDS: THIAMINE 100 MG TABLET PO SCH (08:15)
[2021-12-01] MEDS: LORazepam 2 MG TABLET PO PRN (08:56)
[2021-12-01] MEDS ORDERED: DIVA-112 PO (12:45)
[2021-12-01] MEDS ORDERED: SERT-439 PO (12:45)
[2021-12-01] MEDS ORDERED: ARIP15TA27 PO (12:45)
== END 2021-12-01 13:35 | disposition home or self-care (01) | DRG 885 ==
LOC: EMS 01:34 → 3EI 05:59 → 3EX 11-22 20:37
PROVIDERS: ADMIT Psychiatry & Neurology Psychiatry; ATTEND Psychiatry & Neurology Psychiatry
DX: F25.1 Schizoaffective disorder, depressive type (principal); Z93.3 Colostomy status; R45.851 Suicidal ideations; D64.9 Anemia, unspecified; I10 Essential (primary) hypertension; F14.90 Cocaine use, unspecified, uncomplicated; E11.9 Type 2 diabetes mellitus without complications; F17.210 Nicotine dependence, cigarettes, uncomplicated; J43.9 Emphysema, unspecified; Z20.822 Contact with and (suspected) exposure to COVID-19; K64.9 Unspecified hemorrhoids; Z59.00 Homelessness unspecified; Z78.1 Physical restraint status; Z88.8 Allergy status to other drugs, medicaments and biological substances
CPT/HCPCS: 80053; 80061; 80164; 82962; 83735; 84100; 85025; 87081; 99285; G0378; G0480; Q9967

== ENCOUNTER 2023-05-16 15:01 | Inpatient (IN) | payer MEDICARE, MEDICAID ==
[~2023-05-16] VITALS: Ht 172.7 cm; Wt 67.6 kg
[~2023-05-16 15:01] MED LIST changes: +CLIN300C58 PO
[2023-05-16] MEDS ORDERED: HydrOXYzine HCL 25 MG TABLET PO ONE (19:45)
[2023-05-16 20:55] LABS: BASOPHILS % (AUTO) 0.9 % (0.0-2.0); EOSINOPHILS % (AUTO) 14.5 % (1.0-6.0); HEMATOCRIT 35.4 % (36-46); HEMOGLOBIN 11.6 g/dL (12.0-16.0); LYMPHOCYTES # (AUTO) 1.3 K/uL (1.0-4.8); LYMPHOCYTES % (AUTO) 26.3 % (22.0-44.0); MEAN CORPUSCULAR HEMOGLOBIN 28.5 pg (26.0-34.0); MEAN CORPUSCULAR HGB CONC 32.8 G/dL (31.0-37.0); MEAN CORPUSCULAR VOLUME 87 fL (80-100); MONOCYTES # (AUTO) 0.7 K/uL (0.1-1.0); MONOCYTES % (AUTO) 13.3 % (2.0-9.0); NEUTROPHILS # (AUTO) 2.2 K/uL (1.8-7.7); PLATELET COUNT (AUTO) 250 K/uL (150-450); RED BLOOD CELL COUNT(AUTO) 4.08 MIL/uL (4.00-5.20); RED CELL DISTRIBUTION WIDTH 16.6 % (11.5-14.5); WHITE BLOOD COUNT (AUTO) 4.9 K/uL (4.5-11.0)
[2023-05-16] MEDS ORDERED: LORazepam 2 MG/ML VIAL IM ONE (21:00)
[2023-05-16] MEDS ORDERED: HALOPERIDOL LACTATE 5 MG/ML VIAL IM ONE (21:00)
[2023-05-16] MEDS ORDERED: DiphenhydrAMINE HCL 50 MG/ML VIAL IM ONE (21:00)
[2023-05-16 21:07] LABS: ANION GAP 10 mmol/L (8-16); CALCIUM, TOTAL 8.6 mg/dL (8.8-10.5); CARBON DIOXIDE 30 mmol/L (22-29); CHLORIDE 104 mmol/L (98-107); CREATININE 0.78 mg/dL (0.60-1.30); GLOMERULAR FILTR. RATE CALC > 60 mL/min (>60); GLUCOSE,RANDOM 98 mg/dL (70-110); SODIUM SERUM 144 mmol/L (136-145); UREA NITROGEN, BLOOD 15 mg/dL (7-18)
[2023-05-16 21:12] LABS: ALANINE AMINOTRANSFERASE 16 U/L (12-78); ALBUMIN 2.4 g/dL (3.4-5.0); ALKALINE PHOSPHATASE 70 U/L (46-116); ASPARTATE AMINOTRANSFERASE 16 U/L (15-37); BILIRUBIN,TOTAL 0.3 mg/dL (0.1-1.0)
[2023-05-16] MEDS ORDERED: MAG HYDROX/AL HYDROX/SIMETH ES 30 ML SUSPENSION UDCUP PO PRN (21:15)
[2023-05-16] MEDS ORDERED: LOPERAMIDE HCL 2 MG CAPSULE PO PRN (21:15)
[2023-05-16] MEDS ORDERED: OLANZapine 5 MG RAPDIS TABLET PO PRN (21:15)
[2023-05-16] MEDS ORDERED: TUBERCULIN, PURIFIED PROTEIN DERIVATIVE 5 TU/0.1 ML SYRINGE ID ONE (21:15)
[2023-05-16] MEDS ORDERED: GuaiFENesin/D-METHORPHAN [SUGAR-FREE] 200-20MG/10 ML SYRUP UDCUP PO PRN (21:15)
[2023-05-16] MEDS ORDERED: OLANZapine 10 MG RAPDIS TABLET PO ONE (21:15)
[2023-05-16] MEDS ORDERED: PROMETHAZINE HCL 25 MG TABLET PO PRN (21:15)
[2023-05-16] MEDS ORDERED: HydrOXYzine PAMOATE 50 MG CAPSULE PO PRN (21:15)
[2023-05-16 21:17] LABS: ALCOHOL, BLOOD (SERUM) < 3 mg/dL (0-10)
[2023-05-17] MEDS ORDERED: ZIPRASIDONE MESYLATE 20 MG/VIAL IM ONE ×2
[2023-05-17 01:48] LABS: AMPHET/METH SCREEN,URINE NEGATIVE (NEGATIVE); BARBITURATE SCREEN, URINE NEGATIVE (NEGATIVE); BENZODIAZEPINES SCREEN,URINE NEGATIVE (NEGATIVE); CANNABINOID SCREEN,URINE NEGATIVE (NEGATIVE); COCAINE SCREEN,URINE NEGATIVE (NEGATIVE); METHADONE SCREEN, URINE NEGATIVE (NEGATIVE); OPIATE SCREEN,URINE NEGATIVE (NEGATIVE); PHENCYCLIDINE SCREEN,URINE NEGATIVE (NEGATIVE)
[2023-05-17 01:50] LABS: ALCOHOL, URINE DRUG SCREEN NEGATIVE (NEGATIVE)
[2023-05-17] MEDS ORDERED: PERMETHRIN 1% 60 ML LOTION TP ONE (05:45)
[2023-05-17] MEDS ORDERED: PIPERONYL BUTOXIDE/PYRETHRINS 120 ML SHAMPOO TP ONE (05:45)
[2023-05-17] MEDS ORDERED: PERMETHRIN 5% 60 GM CREAM TP ONE (06:00)
[2023-05-17] MEDS: NALTREXONE HCL 50 MG TABLET PO SCH ×2 (09:00→10:09)
[2023-05-17] MEDS: FOLIC ACID 1 MG TABLET PO SCH ×2 (09:00→10:10)
[2023-05-17] MEDS: THIAMINE 100 MG TABLET PO SCH ×3 (09:00→17:00)
[2023-05-17] MEDS: OMEGA-3/DHA/EPA/FISH OIL 1,000 MG CAPSULE PO SCH ×2 (09:00→10:10)
[2023-05-17] MEDS: MULTIVITAMINS WITH MINERALS, THERAPEUTIC TABLET PO SCH ×2 (09:00→10:10)
[2023-05-17 09:44] LABS: COVID AG,FIA SOURCE NASAL SWAB
[2023-05-17 10:04] LABS: SARS-COV2 (COVID) ANTIGEN,FIA Negative (Negative)
[2023-05-17 13:06] LABS: HEMOGLOBIN A1C 5.7 % (3.8-5.6)
[2023-05-17 14:14] VITALS: BP 166/85; PULSE 74; RESP 16; TEMP 97.6; O2SAT 97
[2023-05-17] MEDS ORDERED: PNEUMOCOCCAL VACCINE POLYVALENT 0.5 ML SYRINGE [PPSV23] IM. ONE (14:30)
[2023-05-17 14:46] LABS: CHOLESTEROL 121 mg/dL (131-200); FREE T4 (FREE THYROXINE) 0.96 ng/dL (0.76-1.46); HDL CHOLESTEROL 40 mg/dL (40-60); LDL CHOL (CALC.) 66 mg/dL (0-130); THYROID STIMULATING HORMONE 1.77 uIU/mL (0.36-3.74); TRIGLYCERIDES 74 mg/dL (15-150)
[2023-05-17] MEDS ORDERED: PALIPERIDONE PALMITATE 234 MG/1.5 ML SYRINGE IM ONE (15:41)
[2023-05-17] MEDS: MELATONIN 5 MG TABLET PO SCH (20:59)
[2023-05-17] MEDS: DIVALPROEX SODIUM 500 MG ER TABLET PO SCH (20:59)
[2023-05-17] MEDS: OLANZapine 10 MG RAPDIS TABLET PO SCH (20:59)
[2023-05-17 21:07] VITALS: RESP 17
[2023-05-18] MEDS ORDERED: CloNIDine HCL 0.1 MG TABLET PO PRN (08:00)
[2023-05-18] MEDS: OMEGA-3/DHA/EPA/FISH OIL 1,000 MG CAPSULE PO SCH (10:00)
[2023-05-18] MEDS: AmLODIPine BESYLATE 5 MG TABLET PO SCH (10:00)
[2023-05-18] MEDS: FOLIC ACID 1 MG TABLET PO SCH (10:00)
[2023-05-18] MEDS: MULTIVITAMINS WITH MINERALS, THERAPEUTIC TABLET PO SCH (10:00)
[2023-05-18] MEDS: BICTEGRAV/EMTRICIT/TENOFOV ALA 50-200-25 MG TABLET PO SCH (10:00)
[2023-05-18] MEDS: NALTREXONE HCL 50 MG TABLET PO SCH (10:00)
[2023-05-18] MEDS: THIAMINE 100 MG TABLET PO SCH ×2 (10:00→17:19)
[2023-05-18 12:36] VITALS: RESP 17; TEMP 97.6
[2023-05-18] MEDS: OLANZapine 10 MG RAPDIS TABLET PO SCH (20:58)
[2023-05-18] MEDS: MELATONIN 5 MG TABLET PO SCH (20:58)
[2023-05-18] MEDS: DIVALPROEX SODIUM 500 MG ER TABLET PO SCH (20:58)
[2023-05-18 21:54] VITALS: RESP 18
[2023-05-19] MEDS: BICTEGRAV/EMTRICIT/TENOFOV ALA 50-200-25 MG TABLET PO SCH (09:12)
[2023-05-19] MEDS: NALTREXONE HCL 50 MG TABLET PO SCH (09:12)
[2023-05-19] MEDS: OMEGA-3/DHA/EPA/FISH OIL 1,000 MG CAPSULE PO SCH (09:14)
[2023-05-19] MEDS: THIAMINE 100 MG TABLET PO SCH ×2 (09:14→17:17)
[2023-05-19] MEDS: FOLIC ACID 1 MG TABLET PO SCH (09:14)
[2023-05-19] MEDS: MULTIVITAMINS WITH MINERALS, THERAPEUTIC TABLET PO SCH (09:14)
[2023-05-19 09:16] VITALS: RESP 19; TEMP 97.8
[2023-05-19] MEDS: AmLODIPine BESYLATE 5 MG TABLET PO SCH (09:16)
[2023-05-19] MEDS: DIVALPROEX SODIUM 500 MG ER TABLET PO SCH (20:54)
[2023-05-19] MEDS: MELATONIN 5 MG TABLET PO SCH (20:55)
[2023-05-19] MEDS: OLANZapine 5 MG RAPDIS TABLET PO SCH (20:55)
[2023-05-19 21:17] VITALS: RESP 20
[2023-05-20] MEDS: FOLIC ACID 1 MG TABLET PO SCH (08:41)
[2023-05-20] MEDS: AmLODIPine BESYLATE 5 MG TABLET PO SCH (08:41)
[2023-05-20] MEDS: OMEGA-3/DHA/EPA/FISH OIL 1,000 MG CAPSULE PO SCH (08:41)
[2023-05-20] MEDS: BICTEGRAV/EMTRICIT/TENOFOV ALA 50-200-25 MG TABLET PO SCH (08:42)
[2023-05-20] MEDS: NALTREXONE HCL 50 MG TABLET PO SCH (08:42)
[2023-05-20] MEDS: MULTIVITAMINS WITH MINERALS, THERAPEUTIC TABLET PO SCH (08:42)
[2023-05-20] MEDS: THIAMINE 100 MG TABLET PO SCH ×2 (08:42→16:22)
[2023-05-20 08:44] VITALS: BP 131/80; PULSE 74; RESP 17; TEMP 98.1
[2023-05-20] MEDS: MAGNESIUM HYDROXIDE SUSPENSION 30 ML UDCUP PO PRN (13:31)
[2023-05-20] MEDS ORDERED: PERMETHRIN 5% 60 GM CREAM TP ONE (15:15)
[2023-05-20] MEDS: DIVALPROEX SODIUM 500 MG ER TABLET PO SCH (21:03)
[2023-05-20] MEDS: MELATONIN 5 MG TABLET PO SCH (21:03)
[2023-05-20] MEDS: OLANZapine 5 MG RAPDIS TABLET PO SCH (21:04)
[2023-05-20 21:31] VITALS: RESP 18
[2023-05-21] MEDS: THIAMINE 100 MG TABLET PO SCH ×2 (08:25→16:16)
[2023-05-21] MEDS: FOLIC ACID 1 MG TABLET PO SCH (08:25)
[2023-05-21] MEDS: BICTEGRAV/EMTRICIT/TENOFOV ALA 50-200-25 MG TABLET PO SCH (08:25)
[2023-05-21] MEDS: MULTIVITAMINS WITH MINERALS, THERAPEUTIC TABLET PO SCH (08:25)
[2023-05-21] MEDS: OMEGA-3/DHA/EPA/FISH OIL 1,000 MG CAPSULE PO SCH (08:25)
[2023-05-21] MEDS: AmLODIPine BESYLATE 5 MG TABLET PO SCH (08:25)
[2023-05-21] MEDS: NALTREXONE HCL 50 MG TABLET PO SCH (08:26)
[2023-05-21 08:35] VITALS: BP 106/71; PULSE 100; RESP 16; TEMP 97.2; O2SAT 98
[2023-05-21] MEDS ORDERED: PALIPERIDONE PALMITATE 156 MG/ML SYRINGE IM ONE (09:00)
[2023-05-21] MEDS ORDERED: PALIPERIDONE PALMITATE 234 MG/1.5 ML SYRINGE IM ONE (11:15)
[2023-05-21 20:26] VITALS: BP 118/72; PULSE 98; RESP 18; TEMP 98.4; O2SAT 98
[2023-05-21] MEDS: DIVALPROEX SODIUM 500 MG ER TABLET PO SCH (20:35)
[2023-05-21] MEDS: MELATONIN 5 MG TABLET PO SCH (20:35)
[2023-05-21] MEDS: OLANZapine 10 MG RAPDIS TABLET PO SCH (20:36)
[2023-05-22] MEDS: BICTEGRAV/EMTRICIT/TENOFOV ALA 50-200-25 MG TABLET PO SCH (08:26)
[2023-05-22] MEDS: NALTREXONE HCL 50 MG TABLET PO SCH (08:26)
[2023-05-22 08:27] VITALS: BP 121/82; PULSE 86; RESP 18; TEMP 97.5; O2SAT 98
[2023-05-22] MEDS: THIAMINE 100 MG TABLET PO SCH ×2 (08:28→16:12)
[2023-05-22] MEDS: FOLIC ACID 1 MG TABLET PO SCH (08:28)
[2023-05-22] MEDS: AmLODIPine BESYLATE 5 MG TABLET PO SCH (08:28)
[2023-05-22] MEDS: MULTIVITAMINS WITH MINERALS, THERAPEUTIC TABLET PO SCH (08:28)
[2023-05-22] MEDS: OMEGA-3/DHA/EPA/FISH OIL 1,000 MG CAPSULE PO SCH (08:29)
[2023-05-22] MEDS: MELATONIN 5 MG TABLET PO SCH (20:23)
[2023-05-22] MEDS: DIVALPROEX SODIUM 500 MG ER TABLET PO SCH (20:23)
[2023-05-22] MEDS: OLANZapine 10 MG RAPDIS TABLET PO SCH (20:23)
[2023-05-22 20:44] VITALS: BP 113/76; PULSE 95; RESP 18; TEMP 98.1
[2023-05-23 08:44] VITALS: RESP 18
[2023-05-23] MEDS: AmLODIPine BESYLATE 5 MG TABLET PO SCH (08:50)
[2023-05-23] MEDS: NALTREXONE HCL 50 MG TABLET PO SCH (08:50)
[2023-05-23] MEDS: THIAMINE 100 MG TABLET PO SCH ×2 (08:50→17:11)
[2023-05-23] MEDS: FOLIC ACID 1 MG TABLET PO SCH (08:50)
[2023-05-23] MEDS: MULTIVITAMINS WITH MINERALS, THERAPEUTIC TABLET PO SCH (08:50)
[2023-05-23] MEDS: OMEGA-3/DHA/EPA/FISH OIL 1,000 MG CAPSULE PO SCH (08:50)
[2023-05-23] MEDS: BICTEGRAV/EMTRICIT/TENOFOV ALA 50-200-25 MG TABLET PO SCH (08:51)
[2023-05-23 20:24] VITALS: BP 120/80; PULSE 90; RESP 18; TEMP 98
[2023-05-23] MEDS: OLANZapine 10 MG RAPDIS TABLET PO SCH (20:42)
[2023-05-23] MEDS: MELATONIN 5 MG TABLET PO SCH (20:43)
[2023-05-23] MEDS: DIVALPROEX SODIUM 500 MG ER TABLET PO SCH (20:43)
[2023-05-24 08:55] VITALS: BP 121/83; PULSE 79; RESP 18; TEMP 97.9; O2SAT 97
[2023-05-24] MEDS: BICTEGRAV/EMTRICIT/TENOFOV ALA 50-200-25 MG TABLET PO SCH (08:59)
[2023-05-24] MEDS: NALTREXONE HCL 50 MG TABLET PO SCH (08:59)
[2023-05-24] MEDS: MULTIVITAMINS WITH MINERALS, THERAPEUTIC TABLET PO SCH (08:59)
[2023-05-24] MEDS: THIAMINE 100 MG TABLET PO SCH ×2 (08:59→17:37)
[2023-05-24] MEDS: OMEGA-3/DHA/EPA/FISH OIL 1,000 MG CAPSULE PO SCH (08:59)
[2023-05-24] MEDS: AmLODIPine BESYLATE 5 MG TABLET PO SCH (08:59)
[2023-05-24] MEDS: FOLIC ACID 1 MG TABLET PO SCH (09:00)
[2023-05-24 20:20] VITALS: RESP 18
[2023-05-24] MEDS: MELATONIN 5 MG TABLET PO SCH (20:36)
[2023-05-24] MEDS: DIVALPROEX SODIUM 500 MG ER TABLET PO SCH (20:36)
[2023-05-24] MEDS: OLANZapine 10 MG RAPDIS TABLET PO SCH (20:37)
[2023-05-25 09:08] VITALS: BP 129/78; PULSE 100; RESP 18; TEMP 98.1; O2SAT 97
[2023-05-25] MEDS: NALTREXONE HCL 50 MG TABLET PO SCH (09:27)
[2023-05-25] MEDS: BICTEGRAV/EMTRICIT/TENOFOV ALA 50-200-25 MG TABLET PO SCH (09:27)
[2023-05-25] MEDS: OMEGA-3/DHA/EPA/FISH OIL 1,000 MG CAPSULE PO SCH (09:28)
[2023-05-25] MEDS: MULTIVITAMINS WITH MINERALS, THERAPEUTIC TABLET PO SCH (09:28)
[2023-05-25] MEDS: AmLODIPine BESYLATE 5 MG TABLET PO SCH (09:28)
[2023-05-25] MEDS: THIAMINE 100 MG TABLET PO SCH ×2 (09:28→17:20)
[2023-05-25] MEDS: FOLIC ACID 1 MG TABLET PO SCH (09:28)
[2023-05-25 20:17] VITALS: BP 114/69; PULSE 71; RESP 18; TEMP 98.2; O2SAT 97
[2023-05-25] MEDS: OLANZapine 10 MG RAPDIS TABLET PO SCH (20:43)
[2023-05-25] MEDS: MELATONIN 5 MG TABLET PO SCH (20:43)
[2023-05-25] MEDS: DIVALPROEX SODIUM 500 MG ER TABLET PO SCH (20:43)
[2023-05-26] MEDS ORDERED: IVERMECTIN 3 MG TABLET PO ONE (06:45)
[2023-05-26 08:30] VITALS: BP 112/76; PULSE 83; RESP 18; TEMP 97.7; O2SAT 98
[2023-05-26] MEDS ORDERED: PALIPERIDONE PALMITATE 156 MG/ML SYRINGE IM SCH (09:00)
[2023-05-26] MEDS: NALTREXONE HCL 50 MG TABLET PO SCH (09:21)
[2023-05-26] MEDS: BICTEGRAV/EMTRICIT/TENOFOV ALA 50-200-25 MG TABLET PO SCH (09:21)
[2023-05-26] MEDS: FOLIC ACID 1 MG TABLET PO SCH (09:21)
[2023-05-26] MEDS: OMEGA-3/DHA/EPA/FISH OIL 1,000 MG CAPSULE PO SCH (09:21)
[2023-05-26] MEDS: MULTIVITAMINS WITH MINERALS, THERAPEUTIC TABLET PO SCH (09:21)
[2023-05-26] MEDS: AmLODIPine BESYLATE 5 MG TABLET PO SCH (09:21)
[2023-05-26] MEDS: THIAMINE 100 MG TABLET PO SCH (09:21)
[2023-05-26] MEDS: DIVALPROEX SODIUM 500 MG ER TABLET PO SCH (20:59)
[2023-05-26] MEDS: MELATONIN 5 MG TABLET PO SCH (20:59)
[2023-05-26] MEDS: OLANZapine 10 MG RAPDIS TABLET PO SCH (20:59)
[2023-05-26 22:29] VITALS: RESP 18
[2023-05-27] MEDS: NALTREXONE HCL 50 MG TABLET PO SCH (08:17)
[2023-05-27] MEDS: BICTEGRAV/EMTRICIT/TENOFOV ALA 50-200-25 MG TABLET PO SCH (08:18)
[2023-05-27] MEDS: AmLODIPine BESYLATE 5 MG TABLET PO SCH (08:19)
[2023-05-27] MEDS: OMEGA-3/DHA/EPA/FISH OIL 1,000 MG CAPSULE PO SCH (08:19)
[2023-05-27] MEDS: MULTIVITAMINS WITH MINERALS, THERAPEUTIC TABLET PO SCH (08:19)
[2023-05-27 10:04] VITALS: RESP 17; TEMP 97.8
[2023-05-27] MEDS: MELATONIN 5 MG TABLET PO SCH (20:15)
[2023-05-27] MEDS: DIVALPROEX SODIUM 500 MG ER TABLET PO SCH (20:15)
[2023-05-27] MEDS: OLANZapine 10 MG RAPDIS TABLET PO SCH (20:15)
[2023-05-27 20:55] VITALS: RESP 18
[2023-05-28 08:06] VITALS: BP 110/68; PULSE 96; RESP 18; TEMP 98; O2SAT 97
[2023-05-28] MEDS: AmLODIPine BESYLATE 5 MG TABLET PO SCH (09:25)
[2023-05-28] MEDS: NALTREXONE HCL 50 MG TABLET PO SCH (09:25)
[2023-05-28] MEDS: MULTIVITAMINS WITH MINERALS, THERAPEUTIC TABLET PO SCH (09:25)
[2023-05-28] MEDS: OMEGA-3/DHA/EPA/FISH OIL 1,000 MG CAPSULE PO SCH (09:25)
[2023-05-28] MEDS: BICTEGRAV/EMTRICIT/TENOFOV ALA 50-200-25 MG TABLET PO SCH (09:25)
[2023-05-28] MEDS: DIVALPROEX SODIUM 500 MG ER TABLET PO SCH (20:49)
[2023-05-28] MEDS: MELATONIN 5 MG TABLET PO SCH (20:49)
[2023-05-28] MEDS: OLANZapine 10 MG RAPDIS TABLET PO SCH (20:49)
[2023-05-28] MEDS: ZOLPIDEM TARTRATE 10 MG TABLET PO PRN (21:48)
[2023-05-28 21:49] VITALS: BP 114/70; PULSE 88; RESP 18; TEMP 97.6
[2023-05-29] MEDS: BICTEGRAV/EMTRICIT/TENOFOV ALA 50-200-25 MG TABLET PO SCH (09:09)
[2023-05-29] MEDS: MULTIVITAMINS WITH MINERALS, THERAPEUTIC TABLET PO SCH (09:09)
[2023-05-29] MEDS: OMEGA-3/DHA/EPA/FISH OIL 1,000 MG CAPSULE PO SCH (09:09)
[2023-05-29] MEDS: NALTREXONE HCL 50 MG TABLET PO SCH (09:11)
[2023-05-29 09:15] VITALS: BP 112/68; RESP 18
[2023-05-29] MEDS: AmLODIPine BESYLATE 5 MG TABLET PO SCH (09:17)
[2023-05-29 09:22] VITALS: BP 105/60; PULSE 95; RESP 18; TEMP 98; O2SAT 98
[2023-05-29] MEDS: MELATONIN 5 MG TABLET PO SCH (20:34)
[2023-05-29] MEDS: OLANZapine 10 MG RAPDIS TABLET PO SCH (20:34)
[2023-05-29] MEDS: DIVALPROEX SODIUM 500 MG ER TABLET PO SCH (20:34)
[2023-05-29 20:57] VITALS: BP 111/71; PULSE 98; RESP 18; TEMP 97.6; O2SAT 97
[2023-05-30 08:26] VITALS: BP 117/78; PULSE 99; RESP 18; TEMP 97.8; O2SAT 98
[2023-05-30] MEDS: OMEGA-3/DHA/EPA/FISH OIL 1,000 MG CAPSULE PO SCH (09:09)
[2023-05-30] MEDS: BICTEGRAV/EMTRICIT/TENOFOV ALA 50-200-25 MG TABLET PO SCH (09:10)
[2023-05-30] MEDS: MULTIVITAMINS WITH MINERALS, THERAPEUTIC TABLET PO SCH (09:10)
[2023-05-30] MEDS: AmLODIPine BESYLATE 5 MG TABLET PO SCH (09:10)
[2023-05-30] MEDS: NALTREXONE HCL 50 MG TABLET PO SCH (09:10)
[2023-05-30] MEDS: DIVALPROEX SODIUM 500 MG ER TABLET PO SCH (20:21)
[2023-05-30] MEDS: OLANZapine 10 MG RAPDIS TABLET PO SCH (20:22)
[2023-05-30] MEDS: MELATONIN 5 MG TABLET PO SCH (20:24)
[2023-05-30 20:33] VITALS: RESP 18
[2023-05-31 08:29] VITALS: BP 119/70; PULSE 100; RESP 18; TEMP 98.1; O2SAT 97
[2023-05-31] MEDS: OMEGA-3/DHA/EPA/FISH OIL 1,000 MG CAPSULE PO SCH (08:51)
[2023-05-31] MEDS: MULTIVITAMINS WITH MINERALS, THERAPEUTIC TABLET PO SCH (08:51)
[2023-05-31] MEDS: NALTREXONE HCL 50 MG TABLET PO SCH (08:51)
[2023-05-31] MEDS: AmLODIPine BESYLATE 5 MG TABLET PO SCH (08:51)
[2023-05-31] MEDS: BICTEGRAV/EMTRICIT/TENOFOV ALA 50-200-25 MG TABLET PO SCH (08:51)
[2023-05-31 19:52] VITALS: BP 115/72; PULSE 95; RESP 18; TEMP 101
[2023-05-31] MEDS: ACETAMINOPHEN 325 MG TABLET PO PRN (19:52)
[2023-05-31] MEDS: MELATONIN 5 MG TABLET PO SCH (20:51)
[2023-05-31] MEDS: DIVALPROEX SODIUM 500 MG ER TABLET PO SCH (20:51)
[2023-05-31] MEDS: OLANZapine 10 MG RAPDIS TABLET PO SCH (20:51)
[2023-05-31 20:52] VITALS: RESP 18; TEMP 99.1
[2023-05-31 20:53] LABS: BASOPHILS % (AUTO) 0.1 % (0.0-2.0); EOSINOPHILS % (AUTO) 2.9 % (1.0-6.0); HEMATOCRIT 30.5 % (36-46); HEMOGLOBIN 9.7 g/dL (12.0-16.0); LYMPHOCYTES # (AUTO) 1.2 K/uL (1.0-4.8); LYMPHOCYTES % (AUTO) 15.2 % (22.0-44.0); MEAN CORPUSCULAR HEMOGLOBIN 27.7 pg (26.0-34.0); MEAN CORPUSCULAR HGB CONC 31.7 G/dL (31.0-37.0); MEAN CORPUSCULAR VOLUME 87 fL (80-100); MONOCYTES # (AUTO) 1.4 K/uL (0.1-1.0); MONOCYTES % (AUTO) 17.1 % (2.0-9.0); NEUTROPHILS # (AUTO) 5.2 K/uL (1.8-7.7); NEUTROPHILS % (AUTO) 64.7 % (40.0-70.0); PLATELET COUNT (AUTO) 244 K/uL (150-450); RED CELL DISTRIBUTION WIDTH 16.1 % (11.5-14.5); WHITE BLOOD COUNT (AUTO) 8.1 K/uL (4.5-11.0)
[2023-05-31 21:02] LABS: ANION GAP 3 mmol/L (8-16); CALCIUM, TOTAL 8.1 mg/dL (8.8-10.5); CARBON DIOXIDE 30 mmol/L (22-29); CHLORIDE 101 mmol/L (98-107); CREATININE 0.67 mg/dL (0.60-1.30); GLOMERULAR FILTR. RATE CALC > 60 mL/min (>60); GLUCOSE,RANDOM 87 mg/dL (70-110); POTASSIUM 4.2 mmol/L (3.5-5.1); SODIUM SERUM 134 mmol/L (136-145); UREA NITROGEN, BLOOD 19 mg/dL (7-18)
[2023-06-01 01:00] VITALS: RESP 18; TEMP 98.1
[2023-06-01 04:00] VITALS: RESP 18; TEMP 98
[2023-06-01] MEDS: BICTEGRAV/EMTRICIT/TENOFOV ALA 50-200-25 MG TABLET PO SCH (08:09)
[2023-06-01] MEDS: NALTREXONE HCL 50 MG TABLET PO SCH (08:09)
[2023-06-01] MEDS: MULTIVITAMINS WITH MINERALS, THERAPEUTIC TABLET PO SCH (08:10)
[2023-06-01] MEDS: AmLODIPine BESYLATE 5 MG TABLET PO SCH (08:10)
[2023-06-01] MEDS: OMEGA-3/DHA/EPA/FISH OIL 1,000 MG CAPSULE PO SCH (08:11)
[2023-06-01 09:56] VITALS: BP 90/64; PULSE 97; RESP 18; TEMP 97.6; O2SAT 98
[2023-06-01 20:14] VITALS: BP 100/70; PULSE 89; RESP 18; TEMP 97.9; O2SAT 97
[2023-06-01] MEDS: DIVALPROEX SODIUM 500 MG ER TABLET PO SCH (20:46)
[2023-06-01] MEDS: MELATONIN 5 MG TABLET PO SCH (20:46)
[2023-06-01] MEDS: OLANZapine 10 MG RAPDIS TABLET PO SCH (20:46)
[2023-06-01] MEDS: ZOLPIDEM TARTRATE 10 MG TABLET PO PRN (21:57)
[2023-06-02 09:42] VITALS: BP 103/60; PULSE 94; RESP 18; TEMP 97.4; O2SAT 98
[2023-06-02] MEDS: BICTEGRAV/EMTRICIT/TENOFOV ALA 50-200-25 MG TABLET PO SCH (10:07)
[2023-06-02] MEDS: NALTREXONE HCL 50 MG TABLET PO SCH (10:07)
[2023-06-02] MEDS: MULTIVITAMINS WITH MINERALS, THERAPEUTIC TABLET PO SCH (10:09)
[2023-06-02] MEDS: OMEGA-3/DHA/EPA/FISH OIL 1,000 MG CAPSULE PO SCH (10:09)
[2023-06-02] MEDS: AmLODIPine BESYLATE 5 MG TABLET PO SCH (10:11)
[2023-06-02 20:10] VITALS: BP 111/64; PULSE 93; RESP 18; TEMP 97.9; O2SAT 97
[2023-06-02] MEDS: DIVALPROEX SODIUM 500 MG ER TABLET PO SCH (20:49)
[2023-06-02] MEDS: OLANZapine 10 MG RAPDIS TABLET PO SCH (20:49)
[2023-06-02] MEDS: MELATONIN 5 MG TABLET PO SCH (20:49)
[2023-06-02] MEDS: ZOLPIDEM TARTRATE 10 MG TABLET PO PRN (21:50)
[2023-06-03] MEDS ORDERED: PARoxetine HCL 20 MG TABLET PO SCH (09:00)
[2023-06-03] MEDS: AmLODIPine BESYLATE 5 MG TABLET PO SCH (09:00)
[2023-06-03 09:23] VITALS: BP 97/58; PULSE 80; RESP 18; TEMP 96.9; O2SAT 100
[2023-06-03] MEDS: BICTEGRAV/EMTRICIT/TENOFOV ALA 50-200-25 MG TABLET PO SCH (09:25)
[2023-06-03] MEDS: NALTREXONE HCL 50 MG TABLET PO SCH (09:25)
[2023-06-03] MEDS: MULTIVITAMINS WITH MINERALS, THERAPEUTIC TABLET PO SCH (09:27)
[2023-06-03] MEDS: OMEGA-3/DHA/EPA/FISH OIL 1,000 MG CAPSULE PO SCH (09:27)
[2023-06-03] MEDS: MAGNESIUM HYDROXIDE SUSPENSION 30 ML UDCUP PO PRN (15:53)
[2023-06-03] MEDS: DIVALPROEX SODIUM 500 MG ER TABLET PO SCH (21:08)
[2023-06-03] MEDS: MELATONIN 5 MG TABLET PO SCH (21:09)
[2023-06-03] MEDS: OLANZapine 10 MG RAPDIS TABLET PO SCH (21:09)
[2023-06-03 21:58] VITALS: BP 104/64; PULSE 82; RESP 18; TEMP 97.2
[2023-06-04 08:33] VITALS: BP 102/60; PULSE 88; RESP 18; TEMP 98.3; O2SAT 96
[2023-06-04] MEDS: PARoxetine HCL 10 MG TABLET PO SCH (08:49)
[2023-06-04] MEDS: BICTEGRAV/EMTRICIT/TENOFOV ALA 50-200-25 MG TABLET PO SCH (08:49)
[2023-06-04] MEDS: NALTREXONE HCL 50 MG TABLET PO SCH (08:49)
[2023-06-04] MEDS: OMEGA-3/DHA/EPA/FISH OIL 1,000 MG CAPSULE PO SCH (08:51)
[2023-06-04] MEDS: MULTIVITAMINS WITH MINERALS, THERAPEUTIC TABLET PO SCH (08:52)
[2023-06-04 20:08] VITALS: BP 108/64; PULSE 84; RESP 18; TEMP 97.4; O2SAT 98
[2023-06-04] MEDS: MELATONIN 5 MG TABLET PO SCH (20:36)
[2023-06-04] MEDS: DIVALPROEX SODIUM 500 MG ER TABLET PO SCH (20:36)
[2023-06-04] MEDS: OLANZapine 10 MG RAPDIS TABLET PO SCH (20:36)
[2023-06-05] MEDS: PARoxetine HCL 10 MG TABLET PO SCH (08:54)
[2023-06-05] MEDS: BICTEGRAV/EMTRICIT/TENOFOV ALA 50-200-25 MG TABLET PO SCH (08:54)
[2023-06-05] MEDS: MULTIVITAMINS WITH MINERALS, THERAPEUTIC TABLET PO SCH (08:55)
[2023-06-05] MEDS: OMEGA-3/DHA/EPA/FISH OIL 1,000 MG CAPSULE PO SCH (08:55)
[2023-06-05] MEDS: NALTREXONE HCL 50 MG TABLET PO SCH (08:55)
[2023-06-05 09:05] VITALS: BP 103/68; PULSE 65; RESP 18; TEMP 98; O2SAT 97
[2023-06-05] MEDS: MELATONIN 5 MG TABLET PO SCH (20:33)
[2023-06-05] MEDS: OLANZapine 10 MG RAPDIS TABLET PO SCH (20:33)
[2023-06-05 20:34] VITALS: BP 112/70; PULSE 68; RESP 17; TEMP 97.9; O2SAT 96
[2023-06-05] MEDS: DIVALPROEX SODIUM 500 MG ER TABLET PO SCH (20:34)
[2023-06-06] MEDS: MULTIVITAMINS WITH MINERALS, THERAPEUTIC TABLET PO SCH (08:57)
[2023-06-06] MEDS: OMEGA-3/DHA/EPA/FISH OIL 1,000 MG CAPSULE PO SCH (08:57)
[2023-06-06] MEDS: NALTREXONE HCL 50 MG TABLET PO SCH (08:57)
[2023-06-06] MEDS: BICTEGRAV/EMTRICIT/TENOFOV ALA 50-200-25 MG TABLET PO SCH (08:57)
[2023-06-06] MEDS: PARoxetine HCL 10 MG TABLET PO SCH (08:57)
[2023-06-06 11:27] VITALS: BP 102/68; PULSE 74; RESP 19; TEMP 97.8; O2SAT 98
[2023-06-06] MEDS ORDERED: TUBERCULIN, PURIFIED PROTEIN DERIVATIVE 5 TU/0.1 ML SYRINGE ID ONE (20:30)
[2023-06-06] MEDS: MELATONIN 5 MG TABLET PO SCH (20:47)
[2023-06-06] MEDS: OLANZapine 10 MG RAPDIS TABLET PO SCH (20:47)
[2023-06-06] MEDS: DIVALPROEX SODIUM 500 MG ER TABLET PO SCH (20:47)
[2023-06-06 23:00] VITALS: BP 108/64; PULSE 70; RESP 18; TEMP 97.2; O2SAT 98
[2023-06-07] MEDS: BICTEGRAV/EMTRICIT/TENOFOV ALA 50-200-25 MG TABLET PO SCH (08:50)
[2023-06-07] MEDS: MULTIVITAMINS WITH MINERALS, THERAPEUTIC TABLET PO SCH (08:50)
[2023-06-07] MEDS: OMEGA-3/DHA/EPA/FISH OIL 1,000 MG CAPSULE PO SCH (08:50)
[2023-06-07] MEDS: PARoxetine HCL 10 MG TABLET PO SCH (08:50)
[2023-06-07] MEDS: NALTREXONE HCL 50 MG TABLET PO SCH (08:51)
[2023-06-07 09:22] VITALS: BP 98/60; PULSE 67; RESP 17; TEMP 98
[2023-06-07 20:10] VITALS: BP_SYST 100; BP_SYST 130; BP_DIAS 80; PULSE 98; RESP 18; TEMP 98; O2SAT 98
[2023-06-07] MEDS: OLANZapine 10 MG RAPDIS TABLET PO SCH (20:55)
[2023-06-07] MEDS: MELATONIN 5 MG TABLET PO SCH (20:55)
[2023-06-07] MEDS: DIVALPROEX SODIUM 500 MG ER TABLET PO SCH (20:55)
[2023-06-08] MEDS: PARoxetine HCL 20 MG TABLET PO SCH (09:07)
[2023-06-08] MEDS: MULTIVITAMINS WITH MINERALS, THERAPEUTIC TABLET PO SCH (09:07)
[2023-06-08] MEDS: BICTEGRAV/EMTRICIT/TENOFOV ALA 50-200-25 MG TABLET PO SCH (09:07)
[2023-06-08] MEDS: OMEGA-3/DHA/EPA/FISH OIL 1,000 MG CAPSULE PO SCH (09:07)
[2023-06-08] MEDS: NALTREXONE HCL 50 MG TABLET PO SCH (09:08)
[2023-06-08 09:26] VITALS: BP 109/60; PULSE 72; RESP 18; TEMP 97; O2SAT 97
[2023-06-08] MEDS: DIVALPROEX SODIUM 500 MG ER TABLET PO SCH (21:06)
[2023-06-08] MEDS: OLANZapine 10 MG RAPDIS TABLET PO SCH (21:07)
[2023-06-08] MEDS: MELATONIN 5 MG TABLET PO SCH (21:07)
[2023-06-08] MEDS: BACITRACIN ZINC/POLYMYXIN B 14.2 GM OINTMENT TP SCH (22:09)
[2023-06-08 22:42] VITALS: RESP 18
[2023-06-09] MEDS: BACITRACIN ZINC/POLYMYXIN B 14.2 GM OINTMENT TP SCH ×2 (08:13→16:21)
[2023-06-09] MEDS: PARoxetine HCL 20 MG TABLET PO SCH (08:13)
[2023-06-09] MEDS: OMEGA-3/DHA/EPA/FISH OIL 1,000 MG CAPSULE PO SCH (08:13)
[2023-06-09] MEDS: BICTEGRAV/EMTRICIT/TENOFOV ALA 50-200-25 MG TABLET PO SCH (08:13)
[2023-06-09] MEDS: NALTREXONE HCL 50 MG TABLET PO SCH (08:13)
[2023-06-09] MEDS: MULTIVITAMINS WITH MINERALS, THERAPEUTIC TABLET PO SCH (08:13)
[2023-06-09] MEDS: SULFAMETHOX/TRIMETH DS 800-160 MG/TABLET PO SCH ×2 (08:16→16:21)
[2023-06-09 08:59] VITALS: PULSE 71; RESP 18; TEMP 97.8; O2SAT 96
[2023-06-09 17:56] VITALS: BP 112/64; PULSE 68; RESP 18; TEMP 97.6
[2023-06-09] MEDS: ACETAMINOPHEN 325 MG TABLET PO PRN (17:56)
[2023-06-09] MEDS: DIVALPROEX SODIUM 500 MG ER TABLET PO SCH (20:25)
[2023-06-09] MEDS: OLANZapine 10 MG RAPDIS TABLET PO SCH (20:25)
[2023-06-09] MEDS: MELATONIN 5 MG TABLET PO SCH (20:25)
[2023-06-09] MEDS: ZOLPIDEM TARTRATE 10 MG TABLET PO PRN (21:12)
[2023-06-09 21:19] VITALS: BP 96/59; PULSE 70; RESP 18; TEMP 98; O2SAT 99
[2023-06-10 08:58] VITALS: BP 105/69; PULSE 75; RESP 17; TEMP 97.4; O2SAT 96
[2023-06-10] MEDS ORDERED: PARoxetine HCL 20 MG TABLET PO SCH (09:00)
[2023-06-10] MEDS: BACITRACIN ZINC/POLYMYXIN B 14.2 GM OINTMENT TP SCH ×2 (09:28→16:49)
[2023-06-10] MEDS: BICTEGRAV/EMTRICIT/TENOFOV ALA 50-200-25 MG TABLET PO SCH (09:28)
[2023-06-10] MEDS: SULFAMETHOX/TRIMETH DS 800-160 MG/TABLET PO SCH ×2 (09:35→16:35)
[2023-06-10] MEDS: OMEGA-3/DHA/EPA/FISH OIL 1,000 MG CAPSULE PO SCH (09:36)
[2023-06-10] MEDS: NALTREXONE HCL 50 MG TABLET PO SCH (09:39)
[2023-06-10] MEDS: MULTIVITAMINS WITH MINERALS, THERAPEUTIC TABLET PO SCH (09:54)
[2023-06-10] MEDS: MAGNESIUM HYDROXIDE SUSPENSION 30 ML UDCUP PO PRN (16:43)
[2023-06-10 20:34] VITALS: BP 108/74; PULSE 85; RESP 20; TEMP 97.7; O2SAT 96
[2023-06-10] MEDS: MELATONIN 5 MG TABLET PO SCH (20:34)
[2023-06-10] MEDS: OLANZapine 10 MG RAPDIS TABLET PO SCH (20:35)
[2023-06-10] MEDS: DIVALPROEX SODIUM 500 MG ER TABLET PO SCH (20:35)
[2023-06-11] MEDS: BICTEGRAV/EMTRICIT/TENOFOV ALA 50-200-25 MG TABLET PO SCH (08:52)
[2023-06-11] MEDS: SULFAMETHOX/TRIMETH DS 800-160 MG/TABLET PO SCH ×2 (08:52→16:39)
[2023-06-11] MEDS: NALTREXONE HCL 50 MG TABLET PO SCH (08:52)
[2023-06-11] MEDS: MULTIVITAMINS WITH MINERALS, THERAPEUTIC TABLET PO SCH (08:53)
[2023-06-11] MEDS: BACITRACIN ZINC/POLYMYXIN B 14.2 GM OINTMENT TP SCH ×2 (08:53→16:39)
[2023-06-11] MEDS: PARoxetine HCL 20 MG TABLET PO SCH (08:53)
[2023-06-11] MEDS: OMEGA-3/DHA/EPA/FISH OIL 1,000 MG CAPSULE PO SCH (08:53)
[2023-06-11 12:26] VITALS: BP 94/66; PULSE 74; RESP 18; TEMP 97.8; O2SAT 97
[2023-06-11] MEDS: MELATONIN 5 MG TABLET PO SCH (20:45)
[2023-06-11] MEDS: DIVALPROEX SODIUM 500 MG ER TABLET PO SCH (20:45)
[2023-06-11] MEDS: OLANZapine 10 MG RAPDIS TABLET PO SCH (20:45)
[2023-06-11 21:17] VITALS: BP 105/69; PULSE 79; RESP 19; TEMP 98.8; O2SAT 100
[2023-06-11] MEDS: ZOLPIDEM TARTRATE 10 MG TABLET PO PRN (21:38)
[2023-06-12] MEDS: NALTREXONE HCL 50 MG TABLET PO SCH (08:33)
[2023-06-12] MEDS: SULFAMETHOX/TRIMETH DS 800-160 MG/TABLET PO SCH ×2 (08:33→17:38)
[2023-06-12] MEDS: MULTIVITAMINS WITH MINERALS, THERAPEUTIC TABLET PO SCH (08:34)
[2023-06-12] MEDS: OMEGA-3/DHA/EPA/FISH OIL 1,000 MG CAPSULE PO SCH (08:34)
[2023-06-12] MEDS: PARoxetine HCL 20 MG TABLET PO SCH (08:34)
[2023-06-12] MEDS: BICTEGRAV/EMTRICIT/TENOFOV ALA 50-200-25 MG TABLET PO SCH (08:34)
[2023-06-12] MEDS: BACITRACIN ZINC/POLYMYXIN B 14.2 GM OINTMENT TP SCH ×2 (09:00→17:38)
[2023-06-12 10:07] VITALS: BP 91/56; PULSE 73; RESP 18; TEMP 97.5; O2SAT 96
[2023-06-12 20:36] VITALS: BP 101/77; PULSE 62; RESP 18; TEMP 97.7; O2SAT 98
[2023-06-12] MEDS: MELATONIN 5 MG TABLET PO SCH (20:58)
[2023-06-12] MEDS: OLANZapine 10 MG RAPDIS TABLET PO SCH (20:58)
[2023-06-12] MEDS: DIVALPROEX SODIUM 500 MG ER TABLET PO SCH (20:58)
[2023-06-13 02:30] VITALS: BP 110/74; PULSE 77; RESP 18; TEMP 98; O2SAT 97
[2023-06-13] MEDS: ACETAMINOPHEN 325 MG TABLET PO PRN (02:32)
[2023-06-13 03:32] VITALS: RESP 18
[2023-06-13 09:38] VITALS: BP 97/58; PULSE 73; RESP 19; TEMP 97.1; O2SAT 98
[2023-06-13] MEDS: PARoxetine HCL 20 MG TABLET PO SCH (09:48)
[2023-06-13] MEDS: NALTREXONE HCL 50 MG TABLET PO SCH (09:50)
[2023-06-13] MEDS: MULTIVITAMINS WITH MINERALS, THERAPEUTIC TABLET PO SCH (09:50)
[2023-06-13] MEDS: OMEGA-3/DHA/EPA/FISH OIL 1,000 MG CAPSULE PO SCH (09:50)
[2023-06-13] MEDS: SULFAMETHOX/TRIMETH DS 800-160 MG/TABLET PO SCH ×2 (09:50→16:56)
[2023-06-13] MEDS: BICTEGRAV/EMTRICIT/TENOFOV ALA 50-200-25 MG TABLET PO SCH (09:51)
[2023-06-13] MEDS: BACITRACIN ZINC/POLYMYXIN B 14.2 GM OINTMENT TP SCH ×2 (11:52→16:56)
[2023-06-13] MEDS: MELATONIN 5 MG TABLET PO SCH (21:00)
[2023-06-13] MEDS: DIVALPROEX SODIUM 500 MG ER TABLET PO SCH (21:00)
[2023-06-13] MEDS: OLANZapine 10 MG RAPDIS TABLET PO SCH (21:01)
[2023-06-13 22:34] VITALS: PULSE 92; RESP 18; TEMP 97.2; O2SAT 96
[2023-06-14 02:22] VITALS: BP 100/66; PULSE 72; RESP 18; TEMP 98.1; O2SAT 96
[2023-06-14] MEDS: ACETAMINOPHEN 325 MG TABLET PO PRN (02:25)
[2023-06-14 02:30] VITALS: BP 100/66; PULSE 72; RESP 18; TEMP 98.1; O2SAT 66
[2023-06-14 03:25] VITALS: RESP 18
[2023-06-14 06:53] LABS: EOSINOPHILS % (AUTO) 9.2 % (1.0-6.0); HEMATOCRIT 30.7 % (36-46); LYMPHOCYTES # (AUTO) 1.3 K/uL (1.0-4.8); LYMPHOCYTES % (AUTO) 33.9 % (22.0-44.0); MEAN CORPUSCULAR HEMOGLOBIN 29.9 pg (26.0-34.0); MEAN CORPUSCULAR HGB CONC 32.5 G/dL (31.0-37.0); MEAN CORPUSCULAR VOLUME 92 fL (80-100); MONOCYTES # (AUTO) 0.7 K/uL (0.1-1.0); MONOCYTES % (AUTO) 19.2 % (2.0-9.0); NEUTROPHILS # (AUTO) 1.4 K/uL (1.8-7.7); NEUTROPHILS % (AUTO) 36.7 % (40.0-70.0); PLATELET COUNT (AUTO) 237 K/uL (150-450); RED BLOOD CELL COUNT(AUTO) 3.34 MIL/uL (4.00-5.20); RED CELL DISTRIBUTION WIDTH 20.1 % (11.5-14.5); WHITE BLOOD COUNT (AUTO) 3.7 K/uL (4.5-11.0)
[2023-06-14 07:07] LABS: HEMOGLOBIN A1C 5.6 % (3.8-5.6)
[2023-06-14 07:22] LABS: ALBUMIN 2.2 g/dL (3.4-5.0); ALKALINE PHOSPHATASE 45 U/L (46-116); ANION GAP 7 mmol/L (8-16); ASPARTATE AMINOTRANSFERASE 21 U/L (15-37); BILIRUBIN,TOTAL 0.1 mg/dL (0.1-1.0); CALCIUM, TOTAL 8.3 mg/dL (8.8-10.5); CARBON DIOXIDE 27 mmol/L (22-29); CHLORIDE 104 mmol/L (98-107); CREATININE 0.87 mg/dL (0.60-1.30); GLOMERULAR FILTR. RATE CALC > 60 mL/min (>60); GLUCOSE,RANDOM 79 mg/dL (70-110); POTASSIUM 4.5 mmol/L (3.5-5.1); SODIUM SERUM 138 mmol/L (136-145); TOTAL PROTEIN, SERUM 6.5 g/dL (6.4-8.2); UREA NITROGEN, BLOOD 27 mg/dL (7-18)
[2023-06-14 07:45] LABS: ALANINE AMINOTRANSFERASE < 6 U/L (12-78)
[2023-06-14] MEDS: NALTREXONE HCL 50 MG TABLET PO SCH (08:49)
[2023-06-14] MEDS: PARoxetine HCL 20 MG TABLET PO SCH (08:49)
[2023-06-14] MEDS: MULTIVITAMINS WITH MINERALS, THERAPEUTIC TABLET PO SCH (08:50)
[2023-06-14] MEDS: OMEGA-3/DHA/EPA/FISH OIL 1,000 MG CAPSULE PO SCH (08:50)
[2023-06-14] MEDS: BICTEGRAV/EMTRICIT/TENOFOV ALA 50-200-25 MG TABLET PO SCH (08:53)
[2023-06-14] MEDS: NYSTATIN 15 GM POWDER BOTTLE TP SCH ×2 (09:00→18:28)
[2023-06-14 10:29] VITALS: BP 93/51; PULSE 72; RESP 16; TEMP 97.1; O2SAT 98
[2023-06-14] MEDS: MAGNESIUM HYDROXIDE SUSPENSION 30 ML UDCUP PO PRN (17:20)
[2023-06-14 20:00] VITALS: BP 97/65; PULSE 82; RESP 18; TEMP 97.9; O2SAT 97
[2023-06-14] MEDS: DIVALPROEX SODIUM 500 MG ER TABLET PO SCH (21:02)
[2023-06-14] MEDS: MELATONIN 5 MG TABLET PO SCH (21:02)
[2023-06-14] MEDS: OLANZapine 10 MG RAPDIS TABLET PO SCH (21:02)
[2023-06-15] MEDS: ACETAMINOPHEN 325 MG TABLET PO PRN (02:22)
[2023-06-15 02:23] VITALS: BP 102/78; PULSE 86; RESP 19; TEMP 97.2; O2SAT 98
[2023-06-15 03:34] VITALS: RESP 18
[2023-06-15 09:23] VITALS: BP 95/59; PULSE 68; RESP 18; TEMP 97.4; O2SAT 98
[2023-06-15] MEDS: MULTIVITAMINS WITH MINERALS, THERAPEUTIC TABLET PO SCH (09:29)
[2023-06-15] MEDS: PARoxetine HCL 20 MG TABLET PO SCH (09:29)
[2023-06-15] MEDS: NALTREXONE HCL 50 MG TABLET PO SCH (09:29)
[2023-06-15] MEDS: OMEGA-3/DHA/EPA/FISH OIL 1,000 MG CAPSULE PO SCH (09:29)
[2023-06-15] MEDS: BICTEGRAV/EMTRICIT/TENOFOV ALA 50-200-25 MG TABLET PO SCH (09:30)
[2023-06-15] MEDS: NYSTATIN 15 GM POWDER BOTTLE TP SCH ×2 (09:30→17:22)
[2023-06-15] MEDS: DIVALPROEX SODIUM 500 MG ER TABLET PO SCH (20:58)
[2023-06-15] MEDS: MELATONIN 5 MG TABLET PO SCH (20:58)
[2023-06-15] MEDS: OLANZapine 10 MG RAPDIS TABLET PO SCH (20:59)
[2023-06-15 22:14] VITALS: BP 102/52; PULSE 77; RESP 18; TEMP 98.6; O2SAT 94
[2023-06-16] MEDS: BICTEGRAV/EMTRICIT/TENOFOV ALA 50-200-25 MG TABLET PO SCH (08:05)
[2023-06-16] MEDS: MULTIVITAMINS WITH MINERALS, THERAPEUTIC TABLET PO SCH (08:06)
[2023-06-16] MEDS: NYSTATIN 15 GM POWDER BOTTLE TP SCH ×2 (08:07→16:07)
[2023-06-16] MEDS: NALTREXONE HCL 50 MG TABLET PO SCH (08:07)
[2023-06-16] MEDS: PARoxetine HCL 20 MG TABLET PO SCH (08:07)
[2023-06-16] MEDS: OMEGA-3/DHA/EPA/FISH OIL 1,000 MG CAPSULE PO SCH (08:07)
[2023-06-16 09:42] VITALS: BP 105/58; PULSE 64; RESP 18; TEMP 97.2; O2SAT 97
[2023-06-16] MEDS: MELATONIN 5 MG TABLET PO SCH (20:10)
[2023-06-16] MEDS: OLANZapine 10 MG RAPDIS TABLET PO SCH (20:10)
[2023-06-16] MEDS: DIVALPROEX SODIUM 500 MG ER TABLET PO SCH (20:10)
[2023-06-16] MEDS: LORazepam 2 MG TABLET PO PRN (20:10)
[2023-06-16 21:33] VITALS: BP 96/69; PULSE 76; RESP 18; TEMP 98.1; O2SAT 96
[2023-06-16] MEDS: ZOLPIDEM TARTRATE 10 MG TABLET PO PRN (21:59)
[2023-06-17] MEDS: BICTEGRAV/EMTRICIT/TENOFOV ALA 50-200-25 MG TABLET PO SCH (08:40)
[2023-06-17] MEDS: NYSTATIN 15 GM POWDER BOTTLE TP SCH ×2 (08:40→15:52)
[2023-06-17] MEDS: NALTREXONE HCL 50 MG TABLET PO SCH (08:41)
[2023-06-17] MEDS: MULTIVITAMINS WITH MINERALS, THERAPEUTIC TABLET PO SCH (08:41)
[2023-06-17] MEDS: PARoxetine HCL 20 MG TABLET PO SCH (08:41)
[2023-06-17] MEDS: OMEGA-3/DHA/EPA/FISH OIL 1,000 MG CAPSULE PO SCH (08:42)
[2023-06-17 10:03] VITALS: BP 142/85; PULSE 81; RESP 18; TEMP 98; O2SAT 96
[2023-06-17 20:51] VITALS: BP 104/60; PULSE 77; RESP 18; TEMP 97.1; O2SAT 97
[2023-06-17] MEDS: MELATONIN 5 MG TABLET PO SCH (21:04)
[2023-06-17] MEDS: OLANZapine 10 MG RAPDIS TABLET PO SCH (21:04)
[2023-06-17] MEDS: DIVALPROEX SODIUM 500 MG ER TABLET PO SCH (21:04)
[2023-06-18] MEDS: BICTEGRAV/EMTRICIT/TENOFOV ALA 50-200-25 MG TABLET PO SCH (09:06)
[2023-06-18] MEDS: OMEGA-3/DHA/EPA/FISH OIL 1,000 MG CAPSULE PO SCH (09:08)
[2023-06-18] MEDS: NALTREXONE HCL 50 MG TABLET PO SCH (09:08)
[2023-06-18] MEDS: NYSTATIN 15 GM POWDER BOTTLE TP SCH ×2 (09:09→15:52)
[2023-06-18] MEDS: PARoxetine HCL 20 MG TABLET PO SCH (09:09)
[2023-06-18] MEDS: MULTIVITAMINS WITH MINERALS, THERAPEUTIC TABLET PO SCH (09:10)
[2023-06-18 09:16] VITALS: BP 102/69; PULSE 79; RESP 18; TEMP 97.5; O2SAT 0
[2023-06-18] MEDS: OLANZapine 10 MG RAPDIS TABLET PO SCH (20:11)
[2023-06-18] MEDS: LORazepam 2 MG TABLET PO PRN (20:11)
[2023-06-18] MEDS: MELATONIN 5 MG TABLET PO SCH (20:11)
[2023-06-18] MEDS: DIVALPROEX SODIUM 500 MG ER TABLET PO SCH (20:11)
[2023-06-18 21:31] VITALS: BP 92/60; PULSE 69; RESP 18; TEMP 97.6; O2SAT 0
[2023-06-18] MEDS: ZOLPIDEM TARTRATE 10 MG TABLET PO PRN (22:04)
[2023-06-19] MEDS: OMEGA-3/DHA/EPA/FISH OIL 1,000 MG CAPSULE PO SCH (09:04)
[2023-06-19] MEDS: BICTEGRAV/EMTRICIT/TENOFOV ALA 50-200-25 MG TABLET PO SCH (09:04)
[2023-06-19] MEDS: NALTREXONE HCL 50 MG TABLET PO SCH (09:04)
[2023-06-19] MEDS: PARoxetine HCL 20 MG TABLET PO SCH (09:04)
[2023-06-19] MEDS: NYSTATIN 15 GM POWDER BOTTLE TP SCH ×2 (09:05→16:33)
[2023-06-19] MEDS: MULTIVITAMINS WITH MINERALS, THERAPEUTIC TABLET PO SCH (09:05)
[2023-06-19 11:20] VITALS: BP 147/84; PULSE 84; RESP 19; TEMP 97.3; O2SAT 96
[2023-06-19 20:24] VITALS: BP 90/60; PULSE 68; RESP 18; TEMP 96; O2SAT 95
[2023-06-19] MEDS: DIVALPROEX SODIUM 500 MG ER TABLET PO SCH (21:36)
[2023-06-19] MEDS: MELATONIN 5 MG TABLET PO SCH (21:36)
[2023-06-19] MEDS: OLANZapine 10 MG RAPDIS TABLET PO SCH (21:37)
[2023-06-20 07:09] LABS: BASOPHILS % (AUTO) 0.6 % (0.0-2.0); EOSINOPHILS % (AUTO) 10.1 % (1.0-6.0); HEMATOCRIT 31.7 % (36-46); HEMOGLOBIN 10.4 g/dL (12.0-16.0); LYMPHOCYTES # (AUTO) 1.4 K/uL (1.0-4.8); LYMPHOCYTES % (AUTO) 36.8 % (22.0-44.0); MEAN CORPUSCULAR HEMOGLOBIN 30.6 pg (26.0-34.0); MEAN CORPUSCULAR HGB CONC 32.7 G/dL (31.0-37.0); MEAN CORPUSCULAR VOLUME 93 fL (80-100); MONOCYTES # (AUTO) 0.8 K/uL (0.1-1.0); MONOCYTES % (AUTO) 21.2 % (2.0-9.0); NEUTROPHILS # (AUTO) 1.2 K/uL (1.8-7.7); NEUTROPHILS % (AUTO) 31.3 % (40.0-70.0); PLATELET COUNT (AUTO) 181 K/uL (150-450); RED CELL DISTRIBUTION WIDTH 20.7 % (11.5-14.5); WHITE BLOOD COUNT (AUTO) 3.7 K/uL (4.5-11.0)
[2023-06-20 07:20] LABS: ANION GAP 3 mmol/L (8-16); CALCIUM, TOTAL 8.6 mg/dL (8.8-10.5); CARBON DIOXIDE 30 mmol/L (22-29); CHLORIDE 104 mmol/L (98-107); CREATININE 0.74 mg/dL (0.60-1.30); GLOMERULAR FILTR. RATE CALC > 60 mL/min (>60); GLUCOSE,RANDOM 97 mg/dL (70-110); POTASSIUM 4.8 mmol/L (3.5-5.1); RBC MORPHOLOGY COMMENT ABNORMAL RBC MORPH; SODIUM SERUM 137 mmol/L (136-145); UREA NITROGEN, BLOOD 28 mg/dL (7-18)
[2023-06-20] MEDS: NALTREXONE HCL 50 MG TABLET PO SCH (10:10)
[2023-06-20] MEDS: OMEGA-3/DHA/EPA/FISH OIL 1,000 MG CAPSULE PO SCH (10:11)
[2023-06-20] MEDS: PARoxetine HCL 20 MG TABLET PO SCH (10:11)
[2023-06-20] MEDS: MULTIVITAMINS WITH MINERALS, THERAPEUTIC TABLET PO SCH (10:12)
[2023-06-20] MEDS: BICTEGRAV/EMTRICIT/TENOFOV ALA 50-200-25 MG TABLET PO SCH (10:14)
[2023-06-20] MEDS: NYSTATIN 15 GM POWDER BOTTLE TP SCH ×2 (10:14→17:57)
[2023-06-20 10:52] VITALS: BP 97/60; PULSE 87; RESP 18; TEMP 97.2; O2SAT 97
[2023-06-20] MEDS: MELATONIN 5 MG TABLET PO SCH (21:05)
[2023-06-20] MEDS: DIVALPROEX SODIUM 500 MG ER TABLET PO SCH (21:05)
[2023-06-20] MEDS: OLANZapine 10 MG RAPDIS TABLET PO SCH (21:06)
[2023-06-20 22:02] VITALS: BP 108/64; PULSE 79; RESP 18; TEMP 97.6; O2SAT 97
[2023-06-21] MEDS: OMEGA-3/DHA/EPA/FISH OIL 1,000 MG CAPSULE PO SCH (09:29)
[2023-06-21] MEDS: PARoxetine HCL 20 MG TABLET PO SCH (09:30)
[2023-06-21] MEDS: BICTEGRAV/EMTRICIT/TENOFOV ALA 50-200-25 MG TABLET PO SCH (09:30)
[2023-06-21] MEDS: MULTIVITAMINS WITH MINERALS, THERAPEUTIC TABLET PO SCH (09:33)
[2023-06-21] MEDS: NALTREXONE HCL 50 MG TABLET PO SCH (09:34)
[2023-06-21 10:28] VITALS: BP 114/69; PULSE 80; RESP 19; TEMP 98.1; O2SAT 96
[2023-06-21 20:54] VITALS: BP 99/65; PULSE 81; RESP 18; TEMP 98; O2SAT 98
[2023-06-21] MEDS: MELATONIN 5 MG TABLET PO SCH (21:08)
[2023-06-21] MEDS: OLANZapine 10 MG RAPDIS TABLET PO SCH (21:08)
[2023-06-21] MEDS: DIVALPROEX SODIUM 500 MG ER TABLET PO SCH (21:08)
[2023-06-22] MEDS: MULTIVITAMINS WITH MINERALS, THERAPEUTIC TABLET PO SCH (08:46)
[2023-06-22] MEDS: OMEGA-3/DHA/EPA/FISH OIL 1,000 MG CAPSULE PO SCH (08:46)
[2023-06-22] MEDS: PARoxetine HCL 20 MG TABLET PO SCH (08:46)
[2023-06-22] MEDS: NALTREXONE HCL 50 MG TABLET PO SCH (08:46)
[2023-06-22] MEDS: BICTEGRAV/EMTRICIT/TENOFOV ALA 50-200-25 MG TABLET PO SCH (08:47)
[2023-06-22 10:59] VITALS: BP 111/57; PULSE 95; RESP 18; O2SAT 98
[2023-06-22] MEDS: ACETAMINOPHEN 325 MG TABLET PO PRN (11:51)
[2023-06-22] MEDS: OLANZapine 10 MG RAPDIS TABLET PO SCH (20:36)
[2023-06-22] MEDS: DIVALPROEX SODIUM 500 MG ER TABLET PO SCH (20:36)
[2023-06-22] MEDS: MELATONIN 5 MG TABLET PO SCH (20:36)
[2023-06-22 21:44] VITALS: BP 113/60; PULSE 88; RESP 18; TEMP 98.2; O2SAT 98
[2023-06-23 08:00] VITALS: BP 113/70; PULSE 72; RESP 18; TEMP 97.7; O2SAT 99
[2023-06-23] MEDS: PARoxetine HCL 20 MG TABLET PO SCH (08:58)
[2023-06-23] MEDS: NALTREXONE HCL 50 MG TABLET PO SCH (08:58)
[2023-06-23] MEDS: OMEGA-3/DHA/EPA/FISH OIL 1,000 MG CAPSULE PO SCH (08:59)
[2023-06-23] MEDS: BICTEGRAV/EMTRICIT/TENOFOV ALA 50-200-25 MG TABLET PO SCH (08:59)
[2023-06-23] MEDS: MULTIVITAMINS WITH MINERALS, THERAPEUTIC TABLET PO SCH (09:01)
[2023-06-23] MEDS: OLANZapine 10 MG RAPDIS TABLET PO SCH (20:07)
[2023-06-23] MEDS: DIVALPROEX SODIUM 500 MG ER TABLET PO SCH (20:07)
[2023-06-23] MEDS: MELATONIN 5 MG TABLET PO SCH (20:07)
[2023-06-23 20:23] VITALS: BP 118/72; PULSE 94; RESP 18; TEMP 98; O2SAT 98
[2023-06-23] MEDS: LORazepam 2 MG TABLET PO PRN (21:04)
[2023-06-23] MEDS: ZOLPIDEM TARTRATE 10 MG TABLET PO PRN (21:53)
[2023-06-24 08:00] VITALS: BP 125/85; PULSE 84; RESP 17; TEMP 98
[2023-06-24] MEDS: NALTREXONE HCL 50 MG TABLET PO SCH (09:08)
[2023-06-24] MEDS: OMEGA-3/DHA/EPA/FISH OIL 1,000 MG CAPSULE PO SCH (09:08)
[2023-06-24] MEDS: MULTIVITAMINS WITH MINERALS, THERAPEUTIC TABLET PO SCH (09:08)
[2023-06-24] MEDS: PARoxetine HCL 20 MG TABLET PO SCH (09:08)
[2023-06-24] MEDS: BICTEGRAV/EMTRICIT/TENOFOV ALA 50-200-25 MG TABLET PO SCH (09:09)
[2023-06-24] MEDS: OLANZapine 10 MG RAPDIS TABLET PO SCH (20:30)
[2023-06-24] MEDS: MELATONIN 5 MG TABLET PO SCH (20:30)
[2023-06-24] MEDS: DIVALPROEX SODIUM 500 MG ER TABLET PO SCH (20:30)
[2023-06-24 22:13] VITALS: BP 117/70; PULSE 92; RESP 18; TEMP 98.5; O2SAT 97
[2023-06-25] MEDS: BICTEGRAV/EMTRICIT/TENOFOV ALA 50-200-25 MG TABLET PO SCH (09:27)
[2023-06-25] MEDS: OMEGA-3/DHA/EPA/FISH OIL 1,000 MG CAPSULE PO SCH (09:28)
[2023-06-25] MEDS: PARoxetine HCL 20 MG TABLET PO SCH (09:28)
[2023-06-25] MEDS: MULTIVITAMINS WITH MINERALS, THERAPEUTIC TABLET PO SCH (09:28)
[2023-06-25] MEDS: NALTREXONE HCL 50 MG TABLET PO SCH (09:31)
[2023-06-25 09:56] VITALS: BP 105/53; PULSE 82; RESP 18; TEMP 97; O2SAT 98
[2023-06-25] MEDS: MELATONIN 5 MG TABLET PO SCH (20:15)
[2023-06-25] MEDS: OLANZapine 10 MG RAPDIS TABLET PO SCH (20:15)
[2023-06-25] MEDS: DIVALPROEX SODIUM 500 MG ER TABLET PO SCH (20:15)
[2023-06-25] MEDS: LORazepam 2 MG TABLET PO PRN (20:15)
[2023-06-25] MEDS: ZOLPIDEM TARTRATE 10 MG TABLET PO PRN (21:59)
[2023-06-25 23:41] VITALS: BP 119/70; PULSE 88; RESP 18; TEMP 98; O2SAT 98
[2023-06-26] MEDS: PARoxetine HCL 20 MG TABLET PO SCH (09:08)
[2023-06-26] MEDS: NALTREXONE HCL 50 MG TABLET PO SCH (09:08)
[2023-06-26] MEDS: OMEGA-3/DHA/EPA/FISH OIL 1,000 MG CAPSULE PO SCH (09:08)
[2023-06-26] MEDS: BICTEGRAV/EMTRICIT/TENOFOV ALA 50-200-25 MG TABLET PO SCH (09:08)
[2023-06-26] MEDS: MULTIVITAMINS WITH MINERALS, THERAPEUTIC TABLET PO SCH (09:09)
[2023-06-26 10:00] VITALS: BP 111/74; PULSE 79; RESP 18; TEMP 97.8; O2SAT 96
[2023-06-26] MEDS: OLANZapine 10 MG RAPDIS TABLET PO SCH (20:39)
[2023-06-26] MEDS: DIVALPROEX SODIUM 500 MG ER TABLET PO SCH (20:40)
[2023-06-26] MEDS: MELATONIN 5 MG TABLET PO SCH (20:40)
[2023-06-26 21:21] VITALS: BP 118/76; PULSE 84; RESP 17; TEMP 97.6
[2023-06-27 08:00] VITALS: BP 102/69; PULSE 81; RESP 7; TEMP 97.9; O2SAT 17
[2023-06-27] MEDS: OMEGA-3/DHA/EPA/FISH OIL 1,000 MG CAPSULE PO SCH (09:43)
[2023-06-27] MEDS: NALTREXONE HCL 50 MG TABLET PO SCH (09:43)
[2023-06-27] MEDS: PARoxetine HCL 20 MG TABLET PO SCH (09:44)
[2023-06-27] MEDS: MULTIVITAMINS WITH MINERALS, THERAPEUTIC TABLET PO SCH (09:44)
[2023-06-27] MEDS: BICTEGRAV/EMTRICIT/TENOFOV ALA 50-200-25 MG TABLET PO SCH (09:44)
[2023-06-27] MEDS: MAGNESIUM HYDROXIDE SUSPENSION 30 ML UDCUP PO PRN (15:10)
[2023-06-27] MEDS: MELATONIN 5 MG TABLET PO SCH (20:32)
[2023-06-27] MEDS: OLANZapine 10 MG RAPDIS TABLET PO SCH (20:32)
[2023-06-27] MEDS: DIVALPROEX SODIUM 500 MG ER TABLET PO SCH (20:32)
[2023-06-27 21:46] VITALS: BP 115/67; PULSE 75; RESP 18; TEMP 97.8
[2023-06-28] MEDS: PARoxetine HCL 20 MG TABLET PO SCH (08:04)
[2023-06-28] MEDS: GABAPENTIN 400 MG CAPSULE PO SCH ×3 (08:04→16:24)
[2023-06-28] MEDS: BICTEGRAV/EMTRICIT/TENOFOV ALA 50-200-25 MG TABLET PO SCH (08:04)
[2023-06-28] MEDS: NALTREXONE HCL 50 MG TABLET PO SCH (08:04)
[2023-06-28] MEDS: MULTIVITAMINS WITH MINERALS, THERAPEUTIC TABLET PO SCH (08:05)
[2023-06-28] MEDS: OMEGA-3/DHA/EPA/FISH OIL 1,000 MG CAPSULE PO SCH (08:05)
[2023-06-28] MEDS ORDERED: PARO-37 PO (09:33)
[2023-06-28] MEDS ORDERED: NALT50TA PO (09:33)
[2023-06-28] MEDS ORDERED: MELA5TAB40 PO (09:33)
[2023-06-28] MEDS ORDERED: GABA-1201 PO (09:33)
[2023-06-28] MEDS ORDERED: OLAN10TA26 PO (09:33)
[2023-06-28] MEDS ORDERED: OMEG-135 PO (09:33)
[2023-06-28] MEDS ORDERED: DIVA500T69 PO (09:33)
[2023-06-28 09:46] VITALS: BP 104/59; PULSE 79; RESP 18; TEMP 97.7; O2SAT 98
[2023-06-28] MEDS: LORazepam 2 MG TABLET PO PRN (19:55)
[2023-06-28] MEDS: DIVALPROEX SODIUM 500 MG ER TABLET PO SCH (21:00)
[2023-06-28] MEDS: OLANZapine 10 MG RAPDIS TABLET PO SCH (21:00)
[2023-06-28] MEDS: ZOLPIDEM TARTRATE 10 MG TABLET PO PRN (21:00)
[2023-06-28] MEDS: MELATONIN 5 MG TABLET PO SCH (21:00)
[2023-06-28 22:57] VITALS: BP 117/66; PULSE 87; RESP 18; TEMP 98; O2SAT 98
[2023-06-29] MEDS: PARoxetine HCL 20 MG TABLET PO SCH (08:19)
[2023-06-29] MEDS: OMEGA-3/DHA/EPA/FISH OIL 1,000 MG CAPSULE PO SCH (08:19)
[2023-06-29] MEDS: GABAPENTIN 400 MG CAPSULE PO SCH (08:19)
[2023-06-29] MEDS: BICTEGRAV/EMTRICIT/TENOFOV ALA 50-200-25 MG TABLET PO SCH (08:19)
[2023-06-29] MEDS: NALTREXONE HCL 50 MG TABLET PO SCH (08:19)
[2023-06-29] MEDS: MULTIVITAMINS WITH MINERALS, THERAPEUTIC TABLET PO SCH (08:19)
[2023-06-29 13:19] VITALS: BP 115/69; PULSE 85; RESP 18; TEMP 97; O2SAT 100
[2023-06-29] MEDS ORDERED: BICT1TAB PO (13:40)
== END 2023-06-29 13:20 | disposition home or self-care (01) | DRG 885 ==
LOC: EMS 15:08 → 3EC 05-17 15:10 → 3EI 06-08 22:24
PROVIDERS: ADMIT Psychiatry & Neurology Psychiatry; ATTEND Psychiatry & Neurology Psychiatry
DX: F20.0 Paranoid schizophrenia (principal); Z93.3 Colostomy status; E87.1 Hypo-osmolality and hyponatremia; F15.20 Other stimulant dependence, uncomplicated; I10 Essential (primary) hypertension; E11.9 Type 2 diabetes mellitus without complications; B85.2 Pediculosis, unspecified; F17.210 Nicotine dependence, cigarettes, uncomplicated; Z59.02 Unsheltered homelessness; D72.818 Other decreased white blood cell count; Z20.822 Contact with and (suspected) exposure to COVID-19; L29.9 Pruritus, unspecified; I95.9 Hypotension, unspecified; L98.8 Other specified disorders of the skin and subcutaneous tissue; J43.9 Emphysema, unspecified; K64.9 Unspecified hemorrhoids; D63.8 Anemia in other chronic diseases classified elsewhere; T43.596A Underdosing of other antipsychotics and neuroleptics, initial encounter; R79.89 Other specified abnormal findings of blood chemistry; Y92.89 Other specified places as the place of occurrence of the external cause; Z55.9 Problems related to education and literacy, unspecified; Z63.9 Problem related to primary support group, unspecified; Z65.3 Problems related to other legal circumstances; Z88.1 Allergy status to other antibiotic agents; Z87.440 Personal history of urinary (tract) infections; Z91.199 Patient's noncompliance with other medical treatment and regimen due to unspecified reason
CPT/HCPCS: 80048; 80053; 80061; 80164; 80307; 83036; 84439; 84443; 85025; 86592; 90732; 99291; G0480; J1200; J1630; J2060; J3486; Q9967

== ENCOUNTER 2024-05-30 13:11 | Emergency (ER) | payer MEDICARE, OTHER ==
[~2024-05-30] VITALS: Ht 177.8 cm; Wt 53.0 kg
[~2024-05-30 13:11] MED LIST changes: -ARIP15TA27 PO; -CLIN300C58 PO; -DIVA-112 PO; +DIVA-153 PO; +OLAN10TA26 PO; +PARO-37 PO; -SERT-439 PO
[2024-05-30 14:43] VITALS: BP 116/66; PULSE 82; RESP 18; TEMP 97.5; O2SAT 100
== END 2024-05-30 14:47 | disposition home or self-care (01) ==
LOC: EMS 13:11
DX: K94.09 Other complications of colostomy (principal); F41.9 Anxiety disorder, unspecified; F31.9 Bipolar disorder, unspecified; J44.9 Chronic obstructive pulmonary disease, unspecified; E11.9 Type 2 diabetes mellitus without complications; I10 Essential (primary) hypertension; F20.9 Schizophrenia, unspecified; F17.210 Nicotine dependence, cigarettes, uncomplicated; F15.90 Other stimulant use, unspecified, uncomplicated; Z59.00 Homelessness unspecified
CPT/HCPCS: 99281; Z7502

== ENCOUNTER 2024-12-03 13:38 | Inpatient (IN) | payer MEDICARE, MEDICAID ==
[~2024-12-03] VITALS: Ht 170.2 cm; Wt 63.5 kg
[~2024-12-03 13:38] MED LIST changes: -DIVA-153 PO; +DIVA-85 PO; +DULO20CA71 PO; +GABA-1181 PO; +MELA5TAB40 PO; +NALT50TA33 PO; -OLAN10TA26 PO; +OLAN5TAB94 PO; -PARO-37 PO; +[UNRECOGNIZED DRUG - CODE] PO
[2024-12-03 16:30] VITALS: BP 110/59; PULSE 84; RESP 16; TEMP 97.9; O2SAT 95
[2024-12-03] MEDS: ACETAMINOPHEN 325 MG TABLET PO PRN (18:08)
[2024-12-03 20:51] VITALS: BP 113/77; PULSE 69; RESP 17; TEMP 97.7; O2SAT 95
[2024-12-03] MEDS ORDERED: ACET-784 PO (20:58)
[2024-12-03] MEDS ORDERED: HYDR-4062 PO (21:14)
[2024-12-03] MEDS ORDERED: BUDE0.5A NEB (21:14)
[2024-12-03] MEDS ORDERED: OLAN5TAB94 PO (21:14)
[2024-12-03] MEDS ORDERED: MELA3CAP2 PO (21:14)
[2024-12-03] MEDS ORDERED: DULO-113 PO (21:14)
[2024-12-03] MEDS ORDERED: POLY17PO47 PO (21:14)
[2024-12-03] MEDS ORDERED: DOCU100C34 PO (21:14)
[2024-12-03] MEDS ORDERED: ENOX40SY14 SQ (21:14)
[2024-12-03] MEDS ORDERED: HYDR-4527 PO (21:14)
[2024-12-03] MEDS ORDERED: GLUC1VIA20 IM (21:14)
[2024-12-03] MEDS ORDERED: HYDR-4072 PO (21:14)
[2024-12-03] MEDS ORDERED: LIDO15CR15 TP (21:14)
[2024-12-03] MEDS: OLANZapine 5 MG RAPDIS TABLET PO SCH (22:40)
[2024-12-03] MEDS: MELATONIN 5 MG TABLET PO SCH (22:40)
[2024-12-03] MEDS: HYDROCODONE/ACETAMINOPHEN 10-325 MG TABLET PO PRN (22:40)
[2024-12-03] MEDS: DIVALPROEX SODIUM 250 MG ER TABLET PO SCH (22:40)
[2024-12-03] MEDS: POLYETHYLENE GLYCOL 3350 17 GM PACKET PO SCH (22:41)
[2024-12-03] MEDS: CefTRIAXone SODIUM 2 GM in DEXTROSE 5%-WATER 50 ML IV SCH (22:42)
[2024-12-03] MEDS ORDERED: SODIUM CHLORIDE 0.9% 250 ML IV ONE (22:50)
[2024-12-04 00:38] VITALS: BP 127/79; PULSE 86; RESP 19; TEMP 98.1; O2SAT 93
[2024-12-04 04:00] VITALS: BP 122/61; PULSE 73; RESP 19; TEMP 97.9; O2SAT 94
[2024-12-04 06:52] LABS: ANION GAP 2 mmol/L (8-16); CALCIUM, TOTAL 8.6 mg/dL (8.8-10.5); CARBON DIOXIDE 32 mmol/L (22-29); CHLORIDE 106 mmol/L (98-107); CREATININE 0.76 mg/dL (0.60-1.30); GLOMERULAR FILTR. RATE CALC > 60 mL/min (>60); GLUCOSE,RANDOM 78 mg/dL (70-110); POTASSIUM 4.6 mmol/L (3.5-5.1); SODIUM SERUM 140 mmol/L (136-145); UREA NITROGEN, BLOOD 17 mg/dL (7-18)
[2024-12-04 06:55] LABS: HEMATOCRIT 25.9 % (36-46); HEMOGLOBIN 8.4 g/dL (12.0-16.0); MEAN CORPUSCULAR HEMOGLOBIN 29.5 pg (26.0-34.0); MEAN CORPUSCULAR HGB CONC 32.4 G/dL (31.0-37.0); MEAN CORPUSCULAR VOLUME 91 fL (80-100); PLATELET COUNT (AUTO) 257 K/uL (150-450); RED BLOOD CELL COUNT(AUTO) 2.84 MIL/uL (4.00-5.20); RED CELL DISTRIBUTION WIDTH 19.4 % (11.5-14.5); WHITE BLOOD COUNT (AUTO) 4.9 K/uL (4.5-11.0)
[2024-12-04] MEDS: ASCORBIC ACID 500 MG TABLET PO SCH (08:13)
[2024-12-04] MEDS: DULoxetine HCL 60 MG CAPSULE PO SCH (08:14)
[2024-12-04] MEDS: BICTEGRAV/EMTRICIT/TENOFOV ALA 50-200-25 MG TABLET PO SCH (08:14)
[2024-12-04] MEDS: DOCUSATE SODIUM 100 MG CAPSULE PO SCH (08:14)
[2024-12-04] MEDS: ENOXAPARIN SODIUM 40 MG/0.4 ML PF SYRINGE SQ SCH (08:14)
[2024-12-04 08:23] LABS: BAND NEUTROPHILS % (MANUAL) 1 % (0-5); EOSINOPHILS % (MANUAL) 6 % (1-6); LYMPHOCYTES % (MANUAL) 39 % (22-44); MONOCYTES % (MANUAL) 21 % (2-9); SEGMENTED NEUTROPHILS % 33 % (40-70); TOTAL CELLS COUNTED 100
[2024-12-04 08:24] LABS: RBC MORPHOLOGY COMMENT ABNORMAL RBC MORPH
[2024-12-04 08:40] VITALS: BP 108/72; PULSE 74; RESP 18; TEMP 98.1; O2SAT 96
[2024-12-04] MEDS: BUDESONIDE 0.5 MG/2 ML NEB SOLUTION NEB SCH (09:00)
[2024-12-04 11:32] VITALS: BP 111/73; PULSE 84; RESP 19; TEMP 98; O2SAT 97
[2024-12-04] MEDS: LORazepam 2 MG/ML VIAL IVP PRN (12:31)
[2024-12-04 16:55] VITALS: BP 119/71; PULSE 98; RESP 19; TEMP 98.2; O2SAT 98
[2024-12-04] MEDS: MELATONIN 3 MG TABLET PO SCH (20:19)
[2024-12-04 20:21] VITALS: BP 152/91; PULSE 86; RESP 18; TEMP 98.1; O2SAT 95
[2024-12-04] MEDS ORDERED: SODIUM CHLORIDE 0.9% 250 ML IV ONE (22:23)
[2024-12-05 04:00] VITALS: BP 142/90; PULSE 71; RESP 18; TEMP 98; O2SAT 94
[2024-12-05 07:25] VITALS: O2SAT 96
[2024-12-05 08:31] VITALS: BP 153/94; PULSE 66; RESP 18; TEMP 97.6; O2SAT 95
[2024-12-05 16:10] VITALS: BP 115/69; PULSE 91; RESP 18; TEMP 97.9; O2SAT 99
[2024-12-05] MEDS: HYDROCODONE/ACETAMINOPHEN 5-325 MG TABLET PO PRN (19:01)
[2024-12-05 19:43] VITALS: BP 129/68; PULSE 74; RESP 18; TEMP 97.9; O2SAT 97
[2024-12-05] MEDS: HydrOXYzine HCL 25 MG TABLET PO PRN (20:02)
[2024-12-06 04:01] VITALS: BP 100/65; PULSE 86; RESP 18; TEMP 98; O2SAT 94
[2024-12-06 07:56] VITALS: BP 130/79; PULSE 85; RESP 20; TEMP 97.7; O2SAT 93
[2024-12-06 09:00] VITALS: PULSE 85; RESP 20; O2SAT 93; O2SAT 97
[2024-12-06 16:17] VITALS: BP 130/99; PULSE 102; RESP 20; TEMP 98.3; O2SAT 98
[2024-12-06 19:41] VITALS: BP 115/71; PULSE 89; RESP 18; TEMP 97.9; O2SAT 98
[2024-12-07 09:26] VITALS: PULSE 88; RESP 18; O2SAT 94
[2024-12-07 09:45] VITALS: PULSE 88; RESP 18; O2SAT 95
[2024-12-07 16:00] VITALS: BP 118/70; PULSE 86; RESP 16; TEMP 97.8; O2SAT 98
[2024-12-07 19:48] VITALS: BP 113/61; PULSE 89; RESP 18; TEMP 98.5; O2SAT 96
[2024-12-08 05:42] VITALS: BP 108/68; PULSE 84; RESP 18; TEMP 97.9; O2SAT 96
[2024-12-08 07:50] LABS: BASOPHILS % (AUTO) 0.9 % (0.0-2.0); EOSINOPHILS % (AUTO) 9.7 % (1.0-6.0); HEMATOCRIT 27.8 % (36-46); HEMOGLOBIN 9.3 g/dL (12.0-16.0); LYMPHOCYTES # (AUTO) 1.3 K/uL (1.0-4.8); LYMPHOCYTES % (AUTO) 37.4 % (22.0-44.0); MEAN CORPUSCULAR HEMOGLOBIN 30.3 pg (26.0-34.0); MEAN CORPUSCULAR HGB CONC 33.4 G/dL (31.0-37.0); MEAN CORPUSCULAR VOLUME 91 fL (80-100); MONOCYTES # (AUTO) 0.8 K/uL (0.1-1.0); MONOCYTES % (AUTO) 22.3 % (2.0-9.0); NEUTROPHILS % (AUTO) 29.7 % (40.0-70.0); PLATELET COUNT (AUTO) 326 K/uL (150-450); RED BLOOD CELL COUNT(AUTO) 3.07 MIL/uL (4.00-5.20); RED CELL DISTRIBUTION WIDTH 18.6 % (11.5-14.5); WHITE BLOOD COUNT (AUTO) 3.5 K/uL (4.5-11.0)
[2024-12-08 07:58] LABS: ANION GAP 4 mmol/L (8-16); CARBON DIOXIDE 32 mmol/L (22-29); CHLORIDE 102 mmol/L (98-107); CREATININE 0.72 mg/dL (0.60-1.30); GLOMERULAR FILTR. RATE CALC > 60 mL/min (>60); GLUCOSE,RANDOM 68 mg/dL (70-110); POTASSIUM 4.4 mmol/L (3.5-5.1); SODIUM SERUM 138 mmol/L (136-145); UREA NITROGEN, BLOOD 27 mg/dL (7-18)
[2024-12-08 08:00] VITALS: BP 113/58; PULSE 90; RESP 18; TEMP 97.8; O2SAT 98
[2024-12-08 09:00] VITALS: PULSE 85; RESP 18; O2SAT 96
[2024-12-08 09:11] VITALS: PULSE 85; RESP 18; O2SAT 95
[2024-12-08] MEDS ORDERED: LIDO700A15 TP (12:39)
[2024-12-08 19:53] VITALS: BP 123/86; PULSE 86; RESP 18; TEMP 98.1; O2SAT 98
[2024-12-09 05:10] VITALS: BP 121/92; PULSE 86; RESP 18; TEMP 98.3; O2SAT 94
[2024-12-09 07:00] VITALS: PULSE 71; RESP 16; O2SAT 96
[2024-12-09 08:13] VITALS: BP 120/57; PULSE 74; RESP 18; TEMP 98.3; O2SAT 95
[2024-12-09 09:00] VITALS: PULSE 88; RESP 16; O2SAT 95
[2024-12-09] MEDS: MULTIVITAMINS WITH MINERALS, THERAPEUTIC TABLET PO SCH (09:29)
[2024-12-09 21:38] VITALS: BP 114/76; PULSE 82; RESP 18; TEMP 98.3; O2SAT 94
[2024-12-10 04:45] VITALS: BP 124/84; PULSE 85; RESP 18; TEMP 97.9; O2SAT 95
[2024-12-10 08:44] VITALS: BP 126/72; PULSE 87; RESP 18; TEMP 98.5; O2SAT 96
[2024-12-10 15:56] VITALS: BP 108/76; PULSE 89; RESP 18; TEMP 97.6; O2SAT 95
[2024-12-10 20:35] VITALS: BP 110/67; PULSE 91; RESP 18; TEMP 98.8; O2SAT 94
[2024-12-11 06:36] VITALS: BP 132/83; PULSE 90; RESP 18; TEMP 99.1; O2SAT 95
[2024-12-11 08:16] VITALS: BP 131/65; PULSE 98; RESP 18; TEMP 98.4; O2SAT 96
[2024-12-11 09:07] VITALS: PULSE 96; RESP 16; O2SAT 96
[2024-12-11 09:22] VITALS: PULSE 92; RESP 18; O2SAT 96
[2024-12-11 22:30] VITALS: BP 108/63; PULSE 78; RESP 18; TEMP 98.7; O2SAT 96
[2024-12-12 05:00] VITALS: BP 110/75; PULSE 80; RESP 18; TEMP 98.5; O2SAT 95
[2024-12-12 08:26] VITALS: BP 111/61; PULSE 86; RESP 18; TEMP 98.1; O2SAT 95
[2024-12-12 08:29] VITALS: PULSE 87; RESP 16; O2SAT 96; O2SAT 97
[2024-12-12 08:44] VITALS: PULSE 88; RESP 16; O2SAT 100
[2024-12-12 16:33] VITALS: BP 116/62; PULSE 82; RESP 18; TEMP 98; O2SAT 96
[2024-12-12 19:37] VITALS: BP 105/67; PULSE 85; RESP 18; TEMP 98.2; O2SAT 95
[2024-12-13 04:20] VITALS: BP 112/72; PULSE 95; RESP 18; TEMP 98.9; O2SAT 96
[2024-12-13 08:49] VITALS: BP 117/60; PULSE 92; RESP 16; TEMP 98.4; O2SAT 97
[2024-12-13 10:19] VITALS: PULSE 92; RESP 16; RESP 18; O2SAT 98
[2024-12-13 10:34] VITALS: PULSE 93; RESP 16; O2SAT 99
[2024-12-13 12:10] LABS: HEMATOCRIT 27.9 % (36-46); MEAN CORPUSCULAR HEMOGLOBIN 29.3 pg (26.0-34.0); MEAN CORPUSCULAR HGB CONC 32.3 G/dL (31.0-37.0); MEAN CORPUSCULAR VOLUME 91 fL (80-100); PLATELET COUNT (AUTO) 242 K/uL (150-450); RED BLOOD CELL COUNT(AUTO) 3.07 MIL/uL (4.00-5.20); WHITE BLOOD COUNT (AUTO) 4.8 K/uL (4.5-11.0)
[2024-12-13 12:19] LABS: ANION GAP 4 mmol/L (8-16); CALCIUM, TOTAL 8.5 mg/dL (8.8-10.5); CARBON DIOXIDE 31 mmol/L (22-29); CHLORIDE 103 mmol/L (98-107); CREATININE 0.67 mg/dL (0.60-1.30); GLOMERULAR FILTR. RATE CALC > 60 mL/min (>60); GLUCOSE,RANDOM 115 mg/dL (70-110); POTASSIUM 4.2 mmol/L (3.5-5.1); SODIUM SERUM 138 mmol/L (136-145); UREA NITROGEN, BLOOD 25 mg/dL (7-18)
[2024-12-13 12:31] LABS: BAND NEUTROPHILS % (MANUAL) 4 % (0-5); EOSINOPHILS % (MANUAL) 17 % (1-6); LYMPHOCYTES % (MANUAL) 30 % (22-44); MONOCYTES % (MANUAL) 9 % (2-9); SEGMENTED NEUTROPHILS % 40 % (40-70); TOTAL CELLS COUNTED 100
[2024-12-13 12:32] LABS: RBC MORPHOLOGY COMMENT ABNORMAL RBC MORPH
[2024-12-13 16:17] VITALS: BP 109/69; PULSE 98; RESP 19; TEMP 98.4; O2SAT 97
[2024-12-13 19:33] VITALS: BP 113/75; PULSE 92; RESP 18; TEMP 98.6; O2SAT 95
[2024-12-14 03:44] VITALS: BP 130/80; PULSE 88; RESP 18; TEMP 98.3; O2SAT 94
[2024-12-14 07:45] VITALS: PULSE 86; RESP 16; O2SAT 100
[2024-12-14 08:20] VITALS: BP 113/70; PULSE 81; RESP 18; TEMP 97.8; O2SAT 97
[2024-12-14 16:53] VITALS: BP 134/81; PULSE 87; RESP 18; TEMP 98; O2SAT 96
[2024-12-14 21:06] VITALS: BP 117/65; PULSE 93; RESP 18; TEMP 98.2; O2SAT 96
[2024-12-15 05:09] VITALS: BP 135/81; PULSE 91; RESP 18; TEMP 98.3; O2SAT 95
[2024-12-15 08:02] VITALS: BP 132/90; PULSE 96; RESP 18; TEMP 98.3; O2SAT 95
[2024-12-15 15:36] VITALS: BP 111/67; PULSE 89; RESP 18; TEMP 98.2; O2SAT 97
[2024-12-15 19:57] VITALS: BP 112/71; PULSE 87; RESP 18; TEMP 97.6; O2SAT 96
[2024-12-16 06:08] VITALS: BP 132/79; PULSE 86; RESP 18; TEMP 98.5; O2SAT 96
[2024-12-16 08:00] VITALS: PULSE 88; PULSE 95; RESP 16; O2SAT 100; O2SAT 98; O2SAT 99
[2024-12-16 08:23] VITALS: BP 114/74; PULSE 81; RESP 18; TEMP 98.7; O2SAT 95
[2024-12-16 16:31] VITALS: BP 129/81; PULSE 81; RESP 20; TEMP 97.3; O2SAT 98
[2024-12-16 21:40] VITALS: BP 109/70; PULSE 94; RESP 19; TEMP 98.3; O2SAT 95
[2024-12-17 05:44] VITALS: BP 119/73; PULSE 96; RESP 19; TEMP 97.6; O2SAT 96
[2024-12-17 08:04] VITALS: BP 104/61; PULSE 78; RESP 18; TEMP 97.9; O2SAT 95
[2024-12-17 09:11] VITALS: PULSE 95; RESP 18; O2SAT 96
[2024-12-17 09:27] VITALS: PULSE 110; RESP 18; O2SAT 95
[2024-12-17 15:50] VITALS: BP 108/69; PULSE 83; RESP 18; TEMP 98.1; O2SAT 96
[2024-12-17 19:51] VITALS: BP 109/52; PULSE 92; RESP 18; TEMP 97.6; O2SAT 95
[2024-12-18 04:06] VITALS: BP 116/60; PULSE 82; RESP 18; TEMP 98.3; O2SAT 94
[2024-12-18 08:51] VITALS: BP 112/70; PULSE 77; RESP 18; TEMP 97.7; O2SAT 97
[2024-12-18 09:40] VITALS: PULSE 81; PULSE 95; RESP 16; O2SAT 81; O2SAT 95
[2024-12-18 09:55] VITALS: PULSE 93; RESP 16; O2SAT 99
[2024-12-18 15:50] VITALS: BP 111/69; PULSE 88; RESP 18; TEMP 97.6; O2SAT 96
[2024-12-18 19:52] VITALS: BP 108/73; PULSE 93; RESP 18; TEMP 97.7; O2SAT 96
[2024-12-19 03:33] VITALS: BP 127/74; PULSE 80; RESP 18; TEMP 97.8; O2SAT 96
[2024-12-19 13:37] LABS: BASOPHILS % (AUTO) 2.6 % (0.0-2.0); HEMOGLOBIN 9.6 g/dL (12.0-16.0); LYMPHOCYTES # (AUTO) 1.7 K/uL (1.0-4.8); LYMPHOCYTES % (AUTO) 40.9 % (22.0-44.0); MEAN CORPUSCULAR HEMOGLOBIN 28.8 pg (26.0-34.0); MEAN CORPUSCULAR HGB CONC 31.9 G/dL (31.0-37.0); MEAN CORPUSCULAR VOLUME 90 fL (80-100); MONOCYTES # (AUTO) 0.6 K/uL (0.1-1.0); NEUTROPHILS # (AUTO) 1.3 K/uL (1.8-7.7); NEUTROPHILS % (AUTO) 29.5 % (40.0-70.0); PLATELET COUNT (AUTO) 235 K/uL (150-450); RED BLOOD CELL COUNT(AUTO) 3.32 MIL/uL (4.00-5.20); RED CELL DISTRIBUTION WIDTH 17.9 % (11.5-14.5); WHITE BLOOD COUNT (AUTO) 4.2 K/uL (4.5-11.0)
[2024-12-19 13:45] LABS: ANION GAP 5 mmol/L (8-16); CALCIUM, TOTAL 8.6 mg/dL (8.8-10.5); CARBON DIOXIDE 28 mmol/L (22-29); CHLORIDE 105 mmol/L (98-107); CREATININE 0.68 mg/dL (0.60-1.30); GLOMERULAR FILTR. RATE CALC > 60 mL/min (>60); GLUCOSE,RANDOM 148 mg/dL (70-110); POTASSIUM 4.5 mmol/L (3.5-5.1); SODIUM SERUM 138 mmol/L (136-145); UREA NITROGEN, BLOOD 28 mg/dL (7-18)
[2024-12-19 16:00] VITALS: BP 115/77; PULSE 81; RESP 18; TEMP 98; O2SAT 96
[2024-12-19 19:48] VITALS: BP 120/75; PULSE 81; RESP 20; TEMP 97.8; O2SAT 94
[2024-12-19] MEDS ORDERED: SODIUM CHLORIDE 0.9% 500 ML IV ONE (21:49)
[2024-12-20 04:57] VITALS: BP 121/83; PULSE 86; RESP 18; TEMP 98.1; O2SAT 96
[2024-12-20 08:37] VITALS: PULSE 84; PULSE 96; RESP 18; O2SAT 84; O2SAT 96
[2024-12-20 08:51] VITALS: PULSE 91; RESP 18; O2SAT 100
[2024-12-20 09:32] VITALS: BP 126/86; PULSE 82; RESP 18; TEMP 98; O2SAT 97
[2024-12-20 15:35] VITALS: BP 108/69; PULSE 88; RESP 17; TEMP 98.9; O2SAT 98
[2024-12-20 20:05] VITALS: BP 134/69; PULSE 93; RESP 18; TEMP 98.2; O2SAT 94
[2024-12-21 03:35] VITALS: BP 119/69; PULSE 80; RESP 16; TEMP 97.7; O2SAT 96
[2024-12-21 11:00] VITALS: PULSE 86; RESP 16; O2SAT 100
[2024-12-21] MEDS ORDERED: CEFT2VIA60 IV (15:26)
== END 2024-12-21 15:00 | DRG 540 ==
LOC: 5S 16:37 → 4E 12-04 14:25
PROVIDERS: ADMIT Hospitalist; ATTEND Hospitalist
DX: M86.8X2 Other osteomyelitis, upper arm (principal); D62 Acute posthemorrhagic anemia; E44.0 Moderate protein-calorie malnutrition; Z59.00 Homelessness unspecified; F20.9 Schizophrenia, unspecified; F41.9 Anxiety disorder, unspecified; K21.9 Gastro-esophageal reflux disease without esophagitis; F31.9 Bipolar disorder, unspecified; I10 Essential (primary) hypertension; I95.9 Hypotension, unspecified; J43.9 Emphysema, unspecified; Z93.3 Colostomy status; Z79.899 Other long term (current) drug therapy; Z88.1 Allergy status to other antibiotic agents; Z68.21 Body mass index [BMI] 21.0-21.9, adult; Z21 Asymptomatic human immunodeficiency virus [HIV] infection status
CPT/HCPCS: 80048; 85025; 94640; 97110; 97116; 97163; 97530; G0378; J0696; J1650; J2060; J7040; J7050; J7060

== ENCOUNTER 2024-12-24 18:16 | Emergency (ER) | payer MEDICARE, MEDICAID ==
[~2024-12-24] VITALS: Ht 175.3 cm; Wt 136.0 kg
[~2024-12-24 18:16] MED LIST changes: +ACET-784 PO; +BUDE0.5A NEB; +CEFT2VIA60 IV; +DOCU100C34 PO; +DULO-113 PO; -DULO20CA71 PO; +ENOX40SY14 SQ; -GABA-1181 PO; +HYDR-4062 PO; +HYDR-4072 PO; +HYDR-4527 PO; +MELA3CAP2 PO; -MELA5TAB40 PO; -NALT50TA33 PO; +POLY17PO47 PO
[2024-12-24 18:22] VITALS: BP 128/68; PULSE 78; RESP 20; TEMP 98.4; O2SAT 100
[2024-12-24 19:43] LABS: BASOPHILS % (AUTO) 0.8 % (0.0-2.0); EOSINOPHILS % (AUTO) 5.4 % (1.0-6.0); HEMATOCRIT 26.2 % (36-46); HEMOGLOBIN 8.5 g/dL (12.0-16.0); LYMPHOCYTES # (AUTO) 1.4 K/uL (1.0-4.8); LYMPHOCYTES % (AUTO) 26.2 % (22.0-44.0); MEAN CORPUSCULAR HEMOGLOBIN 29.1 pg (26.0-34.0); MEAN CORPUSCULAR HGB CONC 32.5 G/dL (31.0-37.0); MEAN CORPUSCULAR VOLUME 90 fL (80-100); MONOCYTES # (AUTO) 0.9 K/uL (0.1-1.0); MONOCYTES % (AUTO) 17.4 % (2.0-9.0); NEUTROPHILS # (AUTO) 2.6 K/uL (1.8-7.7); NEUTROPHILS % (AUTO) 50.2 % (40.0-70.0); PLATELET COUNT (AUTO) 219 K/uL (150-450); RED BLOOD CELL COUNT(AUTO) 2.93 MIL/uL (4.00-5.20); RED CELL DISTRIBUTION WIDTH 16.9 % (11.5-14.5); WHITE BLOOD COUNT (AUTO) 5.2 K/uL (4.5-11.0)
[2024-12-24 19:45] LABS: ERYTHROCYTE SEDIMENTATION RATE 24 MM/HR (0-30)
[2024-12-24 19:49] LABS: ANION GAP 8 mmol/L (8-16); CALCIUM, TOTAL 8.3 mg/dL (8.8-10.5); CARBON DIOXIDE 27 mmol/L (22-29); CHLORIDE 107 mmol/L (98-107); CREATININE 0.76 mg/dL (0.60-1.30); GLOMERULAR FILTR. RATE CALC > 60 mL/min (>60); GLUCOSE,RANDOM 148 mg/dL (70-110); POTASSIUM 4.3 mmol/L (3.5-5.1); SODIUM SERUM 142 mmol/L (136-145); UREA NITROGEN, BLOOD 23 mg/dL (7-18)
[2024-12-24 19:54] LABS: C-REACTIVE PROTEIN QUANT 1.13 mg/dL (0.00-0.30); CREATINE KINASE, TOTAL ONLY 82 U/L (26-192)
[2024-12-24] MEDS ORDERED: IOHEXOL 350 MG/ML 100 ML VIAL ONE (20:26)
[2024-12-24] MEDS ORDERED: SODIUM CHLORIDE 0.9% 100 ML ONE (20:26)
[2024-12-24] MEDS ORDERED: DOXY-354 PO (21:46)
[2024-12-24] MEDS: DOXYCYCLINE HYCLATE 100 MG in DEXTROSE 5%-WATER 100 ML IV ONE (22:55)
== END 2024-12-25 02:37 | disposition home or self-care (01) ==
LOC: EMS 18:21
DX: L03.114 Cellulitis of left upper limb (principal); E11.9 Type 2 diabetes mellitus without complications; J43.9 Emphysema, unspecified; I10 Essential (primary) hypertension; F20.9 Schizophrenia, unspecified; F31.9 Bipolar disorder, unspecified; F17.210 Nicotine dependence, cigarettes, uncomplicated; Z88.1 Allergy status to other antibiotic agents; Z87.19 Personal history of other diseases of the digestive system; Z87.440 Personal history of urinary (tract) infections; Z59.00 Homelessness unspecified; Z79.899 Other long term (current) drug therapy
CPT/HCPCS: 99285; 73201; 96365; 99406; 80048; 82550; 85025; 85651; 86140; 36415; Q9967; J3490; J7060; J7050

== ENCOUNTER 2024-12-26 13:16 | Emergency (ER) | payer MEDICARE, MEDICAID ==
[~2024-12-26] VITALS: Ht 154.9 cm; Wt 67.6 kg
[~2024-12-26 13:16] MED LIST changes: +DOXY-354 PO
[2024-12-26 14:25] VITALS: TEMP 98.6
[2024-12-26] MEDS: OxyCODONE HCL 5 MG IR TABLET PO ONE (15:18)
[2024-12-26] MEDS: IBUPROFEN 400 MG TABLET PO ONE (15:18)
[2024-12-26 20:30] VITALS: BP 124/81; PULSE 74; RESP 16; O2SAT 95
== END 2024-12-26 22:42 | disposition home or self-care (01) ==
LOC: EMS 13:23
DX: S42.031A Displaced fracture of lateral end of right clavicle, initial encounter for closed fracture (principal); I10 Essential (primary) hypertension; F31.9 Bipolar disorder, unspecified; F17.210 Nicotine dependence, cigarettes, uncomplicated; Z88.1 Allergy status to other antibiotic agents; Z79.51 Long term (current) use of inhaled steroids; Z87.19 Personal history of other diseases of the digestive system; Z87.440 Personal history of urinary (tract) infections; Z59.00 Homelessness unspecified; Z79.899 Other long term (current) drug therapy; W01.0XXA Fall on same level from slipping, tripping and stumbling without subsequent striking against object, initial encounter; Y93.89 Activity, other specified; Y92.89 Other specified places as the place of occurrence of the external cause; Y99.8 Other external cause status
CPT/HCPCS: 99283